=== PATIENT | male | born 1940 | race American Indian/Alaskan Native ===

== ENCOUNTER 2016-12-03 13:01 | Inpatient (IN) | payer MEDICARE, OTHER ==
[2016-12-03] MEDS ORDERED: CALCIUM CHLORIDE 10% 1 GM/10 ML *VIAL IVPUSH ONE (13:17)
[2016-12-03] MEDS ORDERED: DEXTROSE 50%-WATER 50 ML VIAL IVPUSH ONE ×3 (13:17→21:55)
--- NOTE | 2016-12-03 13:17 | PDOC ---
History of Present Illness - General History Source: Other Exam Limitations: Unresponsive - History of Present Illness Initial Comments: 12/03/16 14:33 The patient is a 76 year old male with a significant past medical history of anemia, CVA (2012), dialysis ( Mondays, Tuesdays, Fridays), GERD, seizures, LT lung collapse, craniotomy (2012), and knee surgery, who presents to the ED in cardiac arrest. Patient was on the way to dialysis via transport service, when he passed out in the back of the van. History is limited because patient is unconscious. <Elieser Mosley - Last Filed: 12/03/16 16:27> <Izabela Estrada - Last Filed: 12/03/16 16:30> - General Chief Complaint: Cardiac Arrest Stated Complaint: UNRESPONSIVE Time Seen by Provider: 12/03/16 13:16 Past History <Elieser Mosley - Last Filed: 12/03/16 16:27> - Past Medical History Anemia: Yes Asthma: No Cancer: No Cardiac Disorders: No CVA: Yes (2012) COPD: No CHF: No Dementia: No Diabetes: Yes Dialysis: Yes GI Disorders: Yes (GERD) Disorders: Yes (Dialysis: M-W-F) HTN: Yes Hypercholesterolemia: No Liver Disease: No Suicide Attempt (Hx): No Seizures: Yes Thyroid Disease: No - Surgical History Abdominal Surgery: No Appendectomy: No Cardiac Surgery: No Cholecystectomy: No Lung Surgery: No Neurologic Surgery: (CRANIOTOMY 2012) Orthopedic Surgery: Yes (KNEE SURGERY) - Immunization History Td Vaccination: (unknown) Immunization Up to Date: No - Psycho/Social/Smoking Cessation Hx Anxiety: No Suicidal Ideation: No Smoking Status: No Smoking History: Former smoker Have you smoked in the past 12 months: No Number of Cigarettes Smoked Daily: 0 If you are a former smoker, when did you quit?: 1999 'Breaking Loose' booklet given: 08/31/13 Hx Alcohol Use: No Drug/Substance Use Hx: No Substance Use Type: None Hx Substance Use Treatment: No <Izabela Estrada - Last Filed: 12/03/16 16:30> - Past Medical History Allergies/Adverse Reactions: Allergies Allergy/AdvReac Type Severity Reaction Status Date / Time Penicillins Allergy Intermediate Rash Verified 12/03/16 13:33 Home Medications: Ambulatory Orders Unobtainable [Unobtainable] 12/03/16 Review of Systems - Review of Systems Able to Perform ROS?: No <Elieser Mosley - Last Filed: 12/03/16 16:27> *Physical Exam - Vital Signs Last Vital Signs Temp Pulse Resp BP Pulse Ox 50 L 20 108/47 100 12/03/16 13:58 12/03/16 13:58 12/03/16 13:58 12/03/16 13:58 <Elieser Mosley - Last Filed: 12/03/16 16:27> - Physical Exam Comments: GENERAL: Unresponsive, apneic. HEAD: No signs of trauma EYES: Pupils mid-dilated and fixed. ENT: Auricles normal inspection, hearing grossly normal, nares patent, oropharynx clear without exudates. Dry mucosa NECK: Normal ROM, supple, no lymphadenopathy, JVD, or masses LUNGS: No spontaneous respiration. HEART: Heart sounds absent ABDOMEN: Soft, nontender, normoactive bowel sounds. No guarding, no rebound. No masses EXTREMITIES: Normal range of motion, no edema. No clubbing or cyanosis. No cords, erythema. +L forearm AVF, no thrill. NEUROLOGICAL: Unresponsive. SKIN: Warm, Dry, normal turgor, no rashes or lesions noted. <Izabela Estrada - Last Filed: 12/03/16 16:30> Procedures - Central Line Central Line Lumen: triple Central Line Position: femoral (R) Anesthesia: 1% Lidocaine Amount of anesthesia (ccs): 3 Complications: none Post Central Line Insertion: sutured, good blood return Progress: Site prepped with chloraprep. Sterile drape placed. Sterile gown and gloves, mask and hat. Using ultrasound guidance, the R femoral vein was punctured, with good blood return. Wire was advanced through the needle, needle was removed. Site was dilated, then catheter placed. All three ports with good blood return, flushed easily. Biopatch placed. Catheter was sutured in place and covered with tegaderm. Patient tolerated well. - Intubation Time of Intubation: 12:58 Intubation Method: orotracheal Blade used: Smith (4) Tube Size (Fr): 7.5 Tube position @ lip (cm): 24 Tube position confirmed by: Direct visualization, CO2 detector, Chest x-ray, Breath sounds Breath Sounds after Intubation: equal Intubation Complications: no complications Post Intubation Xray: Yes <Izabela Estrada - Last Filed: 12/03/16 16:30> ED Treatment Course - LABORATORY CBC & Chemistry Diagram: 12/03/16 13:10 12/03/16 14:50 - ADDITIONAL ORDERS Additional order review: Laboratory Results 12/03/16 12/03/16 12/03/16 13:10 13:10 13:10 INR PTT (Actin FS) Sodium 136 Potassium 7.0 H* D Chloride 94 L Carbon Dioxide 22 D Anion Gap 20 H BUN 97 H D Creatinine 9.5 H* D Creat Clearance w eGFR 5.42 Random Glucose 494 H* D Lactic Acid 8.235 H* Calcium 11.6 H D Total Bilirubin 0.4 AST 22 D ALT 24 D Alkaline Phosphatase 73 Creatine Kinase 145 Troponin I 0.02 D Total Protein 6.6 Albumin 2.8 L Blood Type O POSITIVE 12/03/16 13:10 INR 1.20 H PTT (Actin FS) 34.8 H Sodium Potassium Chloride Carbon Dioxide Anion Gap BUN Creatinine Creat Clearance w eGFR Random Glucose Lactic Acid Calcium Total Bilirubin AST ALT Alkaline Phosphatase Creatine Kinase Troponin I Total Protein Albumin Blood Type 12/03/16 13:10 RBC 3.40 L MCV 92.9 MCHC 31.0 L RDW 19.5 H MPV 7.6 Neutrophils % 58.8 Lymphocytes % 32.2 D Monocytes % 7.7 Eosinophils % 0.8 D Basophils % 0.5 - RADIOLOGY Radiology Studies Ordered: 12/03/16 14:48 EXAM#: TYPE/EXAM: RESULT: [id number] RAD/CHEST X-RAY PORTABLE* Chest: HISTORY: Rule out sepsis. Frontal view of the chest is provided. Prior study of May 16, 2015 for comparison. Infiltrates are seen throughout most of the right lung with sparing of a portion of the right upper lobe. There is right pleural effusion and cannot exclude empyema. Cardiac silhouette is within normal limits for size. There is right hilar nodularity suspicious for right hilar adenopathy and underlying mass cannot be excluded. ET tube lies in close proximity to the richard and recommend repositioning. IMPRESSION: ET tube lies in close proximity to the richard and recommend repositioning. Extensive right-sided infiltrate in addition to pleural effusion or empyema. Nodularity in the right hilum suggesting lymphadenopathy. See above. - Medications Given in the ED: ED Medications Discontinued Medications Generic Name Dose Route Start Last Admin Trade Name Elan PRN Reason Stop Dose Admin Calcium Chloride 1 gm 12/03/16 13:17 12/03/16 13:00 Calcium Chloride 10% - IVPUSH 12/03/16 13:18 1 gm ONCE ONE Administration Dextrose 50 ml 12/03/16 13:17 12/03/16 13:00 D50w (Vial) - IVPUSH 12/03/16 13:18 50 ml NOW ONE Administration <Elieser Mosley - Last Filed: 12/03/16 16:27> - LABORATORY CBC & Chemistry Diagram: 12/03/16 13:10 12/03/16 14:50 <Izabela Estrada - Last Filed: 12/03/16 16:30> Medical Decision Making - Medical Decision Making 12/03/16 14:[address] Elaina Knox and Dr. Avendaño. <Elieser Mosley - Last Filed: 12/03/16 16:27> - Critical Care Time Total Critical Care Time (minutes): 80 Critical Care Statement: The care of this patient involved high complexity decision making to prevent further life threatening deterioration of the patient 's condition and/or to evalute & treat vital organ system(s) failure or risk of failure. - Medical Decision Making 12/03/16 13:20 Late entry. Patient arrived in cardiac arrest, CPR was initiated in the ambulette by artificial plastic eye maker. Intubated on arrival in room 10. ACLS protocol initiated - given D50, calcium, bicarb, and 3 rounds of epinephrine. Initial bedside echo showed minimal cardiac motion, but repeat after the 3rd epi showed +cardiac motion. +ROSC. Labs pending. Discussed with Dr. Elaina Frias, who stated that the patient's K does not usually run high, would more likely suspect NE. Awaiting lab results and will discuss again. 12/03/16 14:40 Late entry. Shortly before 2pm, patient became bradycardic and hypotensive, responded to atropine. At this point I prepared for central line placement. Selected femoral location due to emergent need for access. Patient started to shake and cough intermittently, ativan was given for sedation. Patient is now becoming hypotensive again, will place on dopamine drip. Discussed with hospitalist, will admit. Awaiting ICU approval. <Izabela Estrada - Last Filed: 12/03/16 16:30> *DC/Admit/Observation/Transfer - Attestations Scribe Attestion: 12/03/16 14:34 Documentation prepared by Elieser Mosley, acting as pediatric medical assistant for Izabela Estrada MD, . <Elieser Mosley - Last Filed: 12/03/16 16:27> - Discharge Dispostion Admit: Yes <Izabela Estrada - Last Filed: 12/03/16 16:30> Diagnosis at time of Disposition: Cardiac arrest, Hyperkalemia Hypothermia Qualifiers: Encounter type: initial encounter Qualified Code(s): T68.XXXA - Hypothermia, initial encounter - Discharge Dispostion Condition at time of disposition: Critical - Referrals
[2016-12-03 13:35] LABS: BASOPHIL 0.5 % (0-2.0); EOSINOPHIL 0.8 % (0-4.5); MCH 28.8 pg (25.7-33.7); MEAN CELL VOLUME 92.9 fl (80-96); MEAN PLT VOLUME 7.6 fl (7.5-11.1); NEUTROPHILS 58.8 % (42.8-82.8); PLATELET COUNT 239 K/MM3 (134-434); RDW 19.5 % (11.9-15.9)
[2016-12-03 13:47] LABS: INR 1.2 (0.82-1.09); PROTHROMBIN TIME (PATIENT) 13.3 SEC (9.98-11.88)
[2016-12-03 13:49] LABS: ACTIVATED PTT 34.8 SECONDS (26.9-34.4)
[2016-12-03] MEDS ORDERED: LORAZEPAM CARPU-JECT 2 MG/ML DISP.SYRIN ONE ×2 (14:00→18:14)
[2016-12-03 14:02] LABS: ALBUMIN 2.8 g/dl (3.4-5.0); BILIRUBIN,TOTAL 0.4 mg/dL (0.2-1.0); CALCIUM 11.6 mg/dL (8.5-10.1); TOT PROT 6.6 g/dl (6.4-8.2)
[2016-12-03 14:07] LABS: CREATININE 9.5 mg/dL (0.7-1.3)
[2016-12-03 14:08] LABS: TROPONIN I 0.02 ng/ml (0.00-0.05)
[2016-12-03] MEDS ORDERED: SODIUM CHLORIDE 500 ML IV STA (14:26)
[2016-12-03] MEDS ORDERED: AZTREONAM 1 GM in DEXTROSE 5%-WATER - 50 ML IVPB ONE (14:27)
[2016-12-03] MEDS ORDERED: VANCOMYCIN 1,000 MG in DEXTROSE 5%-WATER - 250 ML IVPB ONE (14:27)
[2016-12-03] MEDS ORDERED: LORAZEPAM CARPU-JECT 2 MG/ML DISP.SYRIN IVPUSH ONE (14:39)
[2016-12-03] MEDS ORDERED: ATROPINE SULFATE 1 MG/10 ML DISP.SYRIN IVPUSH ONE (14:39)
[2016-12-03 14:43] LABS: ARTERIAL BLD GAS O2 SATURATION 99.6 % (90-98.9); ARTERIAL BLOOD GAS BASE EXCESS -9.3 meq/l (-2-2); ARTERIAL BLOOD GAS HCO3 17.1 meq/L (22-26); ARTERIAL BLOOD GAS pH 7.24 (7.35-7.45)
[2016-12-03 14:44] LABS: ALLENS TEST POSITIVE; ART PUNCT SITE RIGHT RADIAL; LPM/O2% 100%; MECH. VENT. Y; PT. ON O2? YES; TYPE OF O2 MECH VENT; VENT RATE 12; VT/PRESS 450
[2016-12-03] MEDS ORDERED: VANCOMYCIN 1 GRAM (PRE-DOCKED) 500 ML IVPB ONE (14:45)
[2016-12-03] MEDS ORDERED: DOPAMINE 400 MG/D5W - 250 ML IVPB ONE (14:47)
[2016-12-03] MEDS: DOPAMINE 400 MG/D5W - 250 ML IVPB SCH (14:52)
--- NOTE | 2016-12-03 15:03 | CONSULT ---
Consult Consult Specialty:: Nephrology ( Drs. Knox/ Spencer) Referred by:: Dr. Salamanca Reason for Consultation:: Patient with ESRD, admitted after cradio-respiratory arrest. patient was on his way to the dialysis unit, when he became unresponsive in the ambullette. Brought to the ER. Coded, intubated, vent supported. Unresponsive, Pressor supported - History Source History Provided By: Family Member, Friend, Medical Record Limitations to Obtaining History: Physical Impairment - Past Medical History MANAGER OF PROJECT MANAGEMENT: Yes: CVA, Dementia Pulmonary: Yes: Previously Intubated Renal/: Yes: Renal Failure, Hemodialysis Heme/Onc: Yes: Anemia Endocrine: Yes: Diabetes Insipidus - Alcohol/Substance Use Hx Alcohol Use: No - Smoking History Smoking history: Former smoker Have you smoked in the past 12 months: No Aproximately how many cigarettes per day: 0 If you are a former smoker, when did you quit?: 1999 Home Medications - Allergies Allergies/Adverse Reactions: Allergies Allergy/AdvReac Type Severity Reaction Status Date / Time Penicillins Allergy Intermediate Rash Verified 12/03/16 13:33 - Home Medications Home Medications: Ambulatory Orders Unobtainable [Unobtainable] 12/03/16 Family Disease History - Family Disease History Family History: Unable to Obtain Physical Exam Vital Signs: Vital Signs Temperature 94.7 F L 12/03/16 14:31 Pulse Rate 45 L 12/03/16 14:52 Respiratory Rate 20 12/03/16 14:31 Blood Pressure 100/43 12/03/16 14:52 O2 Sat by Pulse Oximetry (%) 100 12/03/16 14:31 HENT: Yes: Normocephalic Neck: Yes: Supple Cardiovascular: Yes: Regular Rate and Rhythm, S1, S2 Respiratory: Yes: Diminished, Mechanically Ventilated Gastrointestinal: Yes: Soft Extremities: Yes: WNL Edema: No Neurological: Yes: Unresponsive Labs: CBC, BMP 12/03/16 13:10 12/03/16 13:10 Problem List - Problems (1) Cardiac arrest Code(s): I46.9 - CARDIAC ARREST, CAUSE UNSPECIFIED (2) Hyperkalemia Code(s): E87.5 - HYPERKALEMIA (3) Hypothermia Code(s): T68.XXXA - HYPOTHERMIA, INITIAL ENCOUNTER Qualifiers: Encounter type: initial encounter Qualified Code(s): T68.XXXA - Hypothermia, initial encounter (4) End stage kidney disease Code(s): N18.6 - END STAGE RENAL DISEASE (5) CVA (cerebral vascular accident) Code(s): I63.9 - CEREBRAL INFARCTION, UNSPECIFIED (6) Hyperkalemia, diminished renal excretion Code(s): E87.5 - HYPERKALEMIA Assessment/Plan 76 y/o male admitted with : 1 Cardiac arrest. ? Primary cardiac event 2. Minimal Hyperkalemia...hemolysed specimen, and also Hyperglycemia can cause Hyperkalemia 3. Hypotension. ? cardiogenic shock. 4,ESRD. On HD. If the patient is stabilized, can do low flow dialysis today. Will monitor the elctrolyte status. W/u as ordered. Will need to stabilize cardio-respiratory status. Antibx for ? Pna Orders for HD reviewed with RN Thank you. Will follow with you. Elaina Knox MD
--- NOTE | 2016-12-03 15:08 | CON.CARD ---
Consult Consult Specialty:: Cardiology Referred by:: Kari Salamanca MD Reason for Consultation:: Post asystolic arrest - History of Present Illness Chief Complaint: Post asystolic arrest History of Present Illness: The patient is a 76 year old male with a significant past medical history of anemia, CVA (2012), ESRD on HD ( Mondays, Tuesdays, Fridays), GERD, seizures, LT lung collapse, craniotomy (2012), and knee surgery, referred to the ED in cardiac arrest. Patient was on the way to dialysis via transport service, when he passed out in the back of the van, cpr initiated, initial rhythm is asystole , resuscitated and now hemodynamically stable on dopamine gtt. History is limited per chart review and family corroboration, initial K=7. - History Source History Provided By: Family Member, Medical Record Limitations to Obtaining History: Intubated - Past Medical History Renal/: Yes: Renal Failure, Hemodialysis - Alcohol/Substance Use Hx Alcohol Use: No - Smoking History Smoking history: Former smoker Have you smoked in the past 12 months: No Aproximately how many cigarettes per day: 0 If you are a former smoker, when did you quit?: 1999 Home Medications - Allergies Allergies/Adverse Reactions: Allergies Allergy/AdvReac Type Severity Reaction Status Date / Time Penicillins Allergy Intermediate Rash Verified 12/03/16 13:33 - Home Medications Home Medications: Ambulatory Orders Unobtainable [Unobtainable] 12/03/16 Review of Systems Unable to obtain ROS, reason: Intubated Vital Signs: Vital Signs Temperature 94.6 F L 12/03/16 15:02 Pulse Rate 52 L 12/03/16 15:02 Respiratory Rate 20 12/03/16 15:02 Blood Pressure 105/46 12/03/16 15:02 O2 Sat by Pulse Oximetry (%) 100 12/03/16 15:02 Respiratory: Yes: Intubated, Mechanically Ventilated, Rhonchi Gastrointestinal: Yes: Normal Bowel Sounds, Soft Cardiovascular: Yes: Regular Rate and Rhythm JVD: No Carotid Bruit: No Heart Sounds: Yes: S1, S2 Murmur: Yes: Systolic Murmur, Grade 1 Edema: No - Other Data Labs, Other Data: CBC, BMP 12/03/16 13:10 INR, PTT INR 1.20 (0.82-1.09) H 12/03/16 13:10 Troponin, BNP 12/03/16 13:10 Troponin I 0.02 D Troponin, BNP 12/03/16 13:10 Troponin I 0.02 D Echo: Image Reviewed Ejection Fraction %: LVEF > or = 40 % Imaging - Results Chest X-ray: Report Reviewed (12/03/16 14:48 EXAM#: TYPE/EXAM: RESULT: [id number] RAD/CHEST X-RAY PORTABLE* Chest: HISTORY: Rule out sepsis. Frontal view of the chest is provided. Prior study of May 16, 2015 for comparison. Infiltrates are seen throughout most of the right lung with sparing of a portion of the right upper lobe. There is right pleural effusion and cannot exclude empyema. Cardiac silhouette is within normal limits for size. There is right hilar nodularity suspicious for right hilar adenopathy and underlying mass cannot be excluded. ET tube lies in close proximity to the richard and recommend repositioning. IMPRESSION: ET tube lies in close proximity to the richard and recommend repositioning. Extensive right-sided infiltrate in addition to pleural effusion or empyema. Nodularity in the right hilum suggesting lymphadenopathy. See above.) Assessment/Plan Echo: Preserved biventricular function with mild MR, TR 1. Acute hypoxemic respiratory failure referable to 2. Post asystolic arrest in context of 3. ESRD on HD with hyperkalemia 4. Shock with lactic acidosis 5. Possible asp PNA, monitor for anoxic brain injury P:1. Cooling protocol per ICU, dopamine gtt to maintain MAP>60 mmHg 2. Cycle cardiac enzymes to document peak, trend lactate, LFTs 3. Empiric abx per C&S to cover asp pna 4. Vent support per ABG, sedation 5. Thank you for consultative opportunity
--- NOTE | 2016-12-03 15:23 | HP ---
PCP: Kari Salamanca CHIEF COMPLAINT: Cardiac arrest HISTORY OF PRESENT ILLNESS: This is a 76-year-old man who became unresponsive in an ambulette on the way to dialysis. When the ambulette arrived at the ER, he was found to be in cardiac arrest and CPR was started in the ambulette. He was brought into the ER and intubated. His temperature was 94.7. He was treated with D50 x 1 amp, calcium chloride 1 g, sodium bicarbonate, epinephrine x 3, atropine x 1, and NS x 500 cc. He is being started on Dopamine. PAST MEDICAL HISTORY ESRD on HD M/W/F Hypertension GERD Seizures Anemia CVA PAST SURGICAL HISTORY Craniotomy Knee surgery Allergies Penicillins Allergy (Intermediate, Verified 12/03/16 13:33) Rash DIZZINESS HOME MEDICATIONS 3 Medication Instructions Recorded Unobtainable [Unobtainable] 12/03/16 Social History: Smoking: Former smoker Alcohol: None Drugs: None Recent Travel: No Family History: REVIEW OF SYSTEMS Unable to obtain PHYSICAL EXAMINATION Vital Signs Period Temp Pulse Resp BP Sys/Vee Pulse Ox Last 24 Hr 94.6 F-94.7 F 0-65 0-20 0-108/0-47 0-100 GENERAL: Unresponsive, intubated. HEAD: Normal with no signs of trauma. EYES: Pupils small, sclerae anicteric, conjunctivae clear. EARS, NOSE, THROAT: Ears normal, nares patent, oropharynx clear without exudates. Moist mucous membranes. NECK: Supple without lymphadenopathy, JVD, or masses. LUNGS: Breath sounds equal, clear to auscultation bilaterally. No wheezes, no crackles. HEART: Normal S1 and S2, bradycardic, (+) 1/6 systolic murmur. ABDOMEN: Soft, not distended, normoactive bowel sounds, no masses. No hepatomegaly or splenomegaly. MUSCULOSKELETAL: Normal passive range of motion at all joints. No bony deformities. UPPER EXTREMITIES: 1+ pulses, warm, well-perfused. No cyanosis. No clubbing. Cap refill <2 seconds. Left forearm AV fistula with bruit and thrill. No peripheral edema. LOWER EXTREMITIES: 1+ pulses, warm, well-perfused. No calf tenderness. Trace peripheral edema. NEUROLOGICAL: Unable to assess. PSYCHIATRIC: Unable to assess. SKIN: Warm, dry, normal turgor, no rashes or lesions noted. Laboratory Results - last 24 hr 12/03/16 12/03/16 12/03/16 13:10 13:10 13:10 WBC 9.0 D RBC 3.40 L Hgb 9.8 L D Hct 31.6 L MCV 92.9 MCHC 31.0 L RDW 19.5 H Plt Count 239 MPV 7.6 Neutrophils % 58.8 Lymphocytes % 32.2 D Monocytes % 7.7 Eosinophils % 0.8 D Basophils % 0.5 INR 1.20 H PTT (Actin FS) 34.8 H Puncture Site ABG pH ABG pCO2 at Pt Temp ABG pO2 at Pt Temp ABG HCO3 ABG O2 Sat (Measured) ABG O2 Content ABG Base Excess Paul Test O2 Delivery Device Oxygen Flow Rate Vent Mode Vent Rate Mechanical Rate PEEP Pressure Support Vent Sodium 136 Potassium 7.0 H* D Chloride 94 L Carbon Dioxide 22 D Anion Gap 20 H BUN 97 H D Creatinine 9.5 H* D Creat Clearance w eGFR 5.42 Random Glucose 494 H* D Lactic Acid Calcium 11.6 H D Total Bilirubin 0.4 AST 22 D ALT 24 D Alkaline Phosphatase 73 Creatine Kinase 145 Troponin I 0.02 D Total Protein 6.6 Albumin 2.8 L Blood Type Antibody Screen 12/03/16 12/03/16 12/03/16 13:10 13:10 14:39 WBC RBC Hgb Hct MCV MCHC RDW Plt Count MPV Neutrophils % Lymphocytes % Monocytes % Eosinophils % Basophils % INR PTT (Actin FS) Puncture Site Right radial ABG pH 7.24 L* D ABG pCO2 at Pt Temp 41.1 ABG pO2 at Pt Temp 368.0 H* D ABG HCO3 17.1 L ABG O2 Sat (Measured) 99.6 H* ABG O2 Content 15.9 ABG Base Excess -9.3 L Paul Test Positive O2 Delivery Device Mech vent Oxygen Flow Rate 100% Vent Mode A/c Vent Rate 12 Mechanical Rate Y PEEP 5.0 Pressure Support Vent 450 Sodium Potassium Chloride Carbon Dioxide Anion Gap BUN Creatinine Creat Clearance w eGFR Random Glucose Lactic Acid 8.235 H* Calcium Total Bilirubin AST ALT Alkaline Phosphatase Creatine Kinase Troponin I Total Protein Albumin Blood Type O POSITIVE Antibody Screen Negative Chest x-ray: ETT close to richard. Extensive right infiltrate with effusion or empyema. Right hilar adenopathy. EKG: Sinus bradycardia, rate 49. LAD. LBBB (new from 05/2015). ASSESSMENT/PLAN: This is a 76-year-old man with a history of ESRD on HD, HTN, type 2 DM, GERD, CVA, anemia and seizures who was brought in to the ER today after having a cardiac arrest in the ambulette on the way to dialysis. ACLS protocol was initiated, he was intubated, and had ROSC. He is being admitted now for treatment of an emergent condition. 1. Acute hypoxic respiratory failure secondary to cardiac arrest - Admit to ICU - Maintain vent support - Continue IV fluid - Serial cardiac enzymes - Echocardiogram - Treat electrolyte abnormalities - Hypothermia protocol - Cardiology, pulmonary/critical care consults 2. Hyperkalemia secondary to ESRD - Repeat electrolytes pending - If potassium still high, will treat with insulin/D50, Kayexalate - Nephrology consult for HD 3. Septic shock secondary to pneumonia, possible aspiration, with effusion and possible empyema - IV fluid - IV Dopamine started in ER - Aztreonam, Vancomycin given in ER - ID consult - Chest CT when stable 4. Lactic acidosis secondary to hypoperfusion from cardiac arrest and septic shock - Repeat lactic acid 5. Hypothermia 6. Hypercalcemia - Likely secondary to calcium IV given during ACLS - Repeat calcium pending 7. Type 2 diabetes mellitus - Hyperglycemia likely secondary to D50 IV given during ACLS - IV fluid - Fingersticks with Novolog sliding scale 8. GERD 9. History of CVA 10. History of seizures 11. Anemia secondary to ESRD 12. Hypertension - Currently on Dopamine for hypotension 13. Stress ulcer prophylaxis - Protonix IV 14. DVT prophylaxis - Heparin subQ Problem List - Problem (1) Acute respiratory failure with hypoxia Code(s): J96.01 - ACUTE RESPIRATORY FAILURE WITH HYPOXIA (2) Anemia in chronic kidney disease (CKD) Code(s): N18.9 - CHRONIC KIDNEY DISEASE, UNSPECIFIED D63.1 - ANEMIA IN CHRONIC KIDNEY DISEASE (3) Aspiration pneumonia Code(s): J69.0 - PNEUMONITIS DUE TO INHALATION OF FOOD AND VOMIT (4) Hypercalcemia Code(s): E83.52 - HYPERCALCEMIA (5) Hypertension Code(s): I10 - ESSENTIAL (PRIMARY) HYPERTENSION (6) Lactic acidosis Code(s): E87.2 - ACIDOSIS (7) Pleural effusion, right Code(s): J90 - PLEURAL EFFUSION, NOT ELSEWHERE CLASSIFIED (8) Septic shock Code(s): A41.9 - SEPSIS, UNSPECIFIED ORGANISM R65.21 - SEVERE SEPSIS WITH SEPTIC SHOCK (9) GERD (gastroesophageal reflux disease) Code(s): K21.9 - GASTRO-ESOPHAGEAL REFLUX DISEASE WITHOUT ESOPHAGITIS (10) History of seizures Code(s): Z87.898 - PERSONAL HISTORY OF OTHER SPECIFIED CONDITIONS (11) Type 2 diabetes mellitus Code(s): E11.9 - TYPE 2 DIABETES MELLITUS WITHOUT COMPLICATIONS Visit type - Emergency Visit Emergency Visit: Yes ED Registration Date: 12/03/16 Care time: The patient presented to the Emergency Department on the above date and was hospitalized for further evaluation of their emergent condition. - New Patient This patient is new to me today: Yes Date on this admission: 12/03/16 - Critical Care Critical Care patient: Yes Total Critical Care Time (in minutes): 60 Critical Care Statement: The care of this patient involved high complexity decision making to prevent further life threatening deterioration of the patient 's condition and/or to evalute & treat vital organ system(s) failure or risk of failure.
[2016-12-03 15:35] LABS: CALCIUM 8.6 mg/dL (8.5-10.1)
[2016-12-03 15:44] LABS: CREATININE 9.5 mg/dL (0.7-1.3)
[2016-12-03] MEDS ORDERED: INSULIN REGULAR HUMAN 100 UNITS/ML *VIAL IVPUSH ONE (15:59)
[2016-12-03] MEDS ORDERED: ALBUTEROL SO4 0.083% IH SOL 2.5 MG/3 ML VIAL.NEB. NEB ONE (15:59)
[2016-12-03] MEDS ORDERED: SODIUM POLYSTYRENE SULFONATE 15 GM/60 ML BOTTLE PO ONE (15:59)
--- NOTE | 2016-12-03 16:15 | EKG ---
Test Reason : Blood Pressure : / mmHG Vent. Rate : 049 BPM Atrial Rate : 049 BPM P-R Int : 238 ms QRS Dur : 194 ms QT Int : 592 ms P-R-T Axes : 016 -57 098 degrees QTc Int : 534 ms SINUS BRADYCARDIA WITH 1ST DEGREE A-V BLOCK LEFT AXIS DEVIATION LEFT BUNDLE BRANCH BLOCK ABNORMAL ECG WHEN COMPARED WITH ECG OF 11-MAY-2015 21:05, OR INTERVAL HAS INCREASED LEFT BUNDLE BRANCH BLOCK IS NOW PRESENT Confirmed by NEWTON RIVER MD ([id number]) on 12/03/2016 4:14:48 PM Referred By: Confirmed By:NEWTON RIVER MD
--- NOTE | 2016-12-03 16:22 | CONSULT ---
Consult Consult Specialty:: Pulm/CCM Referred by:: Siddhartha Reason for Consultation:: Cardiac arrest - History of Present Illness Chief Complaint: Cardiac arrest History of Present Illness: 76M history per chart HTN DM CVA ESRD on HD left lung collapse presents to the ED s/p cardiac arrest. patient was picked up by ambulette and was to be taken to dialysis when the hazmat truck driver noticed patient was unresponsive brought to ED found by ED RN to be in cardiac arrest and patient was coded in the ambulette and brought to the ED. The code continued for 3 rounds of epinephrine when ROSC was achieved. Patient was noted to be hypothermic to 97.4. - History Source History Provided By: Medical Record Limitations to Obtaining History: Intubated (could not obtain) - Past Medical History DOOR FITTER: Yes: CVA, Dementia Pulmonary: Yes: Previously Intubated Renal/: Yes: Renal Failure, Hemodialysis Endocrine: Yes: Diabetes Insipidus - Alcohol/Substance Use Hx Alcohol Use: No - Smoking History Smoking history: Former smoker Have you smoked in the past 12 months: No Aproximately how many cigarettes per day: 0 If you are a former smoker, when did you quit?: 1999 Home Medications - Allergies Allergies/Adverse Reactions: Allergies Allergy/AdvReac Type Severity Reaction Status Date / Time Penicillins Allergy Intermediate Rash Verified 12/03/16 13:33 - Home Medications Home Medications: Ambulatory Orders Unobtainable [Unobtainable] 12/03/16 Family Disease History - Family Disease History Family History: Unable to Obtain Review of Systems Unable to obtain ROS, reason: cardiac arrest intubated Physical Exam Vital Signs: Vital Signs Temperature 94.1 F L 12/03/16 15:29 Pulse Rate 54 L 12/03/16 15:29 Respiratory Rate 16 12/03/16 15:29 Blood Pressure 93/45 12/03/16 15:29 O2 Sat by Pulse Oximetry (%) 100 12/03/16 15:02 Eyes: Yes: Other (pinpoint pupils but sluggishly reactive) Neck: Yes: Trachea Midline Cardiovascular: Yes: Regular Rate and Rhythm, Murmur (systolic murmur) Respiratory: Yes: Diminished, Intubated, Mechanically Ventilated, Poor Air Entry , Rhonchi Gastrointestinal: Yes: Soft Edema: No Imaging - Results Chest X-ray: Report Reviewed, Image Reviewed EKG: Report Reviewed, Image Reviewed Assessment/Plan 76M with multiple medical problems presents to the ED s/p cardiac arrest. Cardiac arrest: patient arrested for unknown amount of time but between the hazmat truck driver's story and the length of time patient coded in ED it could be estimated to be about 20 minutes hypothermia protocol initiated ventilatory support ABG in AM ICU care Dopamine will change to levophed if gets tachycardic after dialysis Neurochecks-patient spontaneously moving feet hold sedation for now and assess need on a constant basis for the need for sedation Trend troponins to document peak cardiology consult appreciated ECHO Femroal line to come out tomorrow Hyperkalemia: Insulin D50 kayexolate and albuterol given calcium given in ED STAT dialysis initiated q4h BMP Septic shock: PNA on CXR vs effusion though clinically PNA makes is more likely it is very possible patient aspirated prior to coming in or during intubation ID consult appreciated allergic to penicillin Will start ceftriaxone and flagyl received vanco aztreonam in ED Solumedrol ESRD on HD: emergent dialysis Nephrology consult appreciated DM: BGM Q4h ISS HTN: hold antihypertensives at this time patient on pressors history of CVA: no issues at this time FEN: no IVF being dialyzed hyperkalemia--> dialysis NPO for now will consider Tube feeds tomorrow PPx: HSQ Protonix PT consult when appropriate Poor prognosis at this time CCTime 60min
[2016-12-03] MEDS ORDERED: ACETAMINOPHEN 650 MG SUPP.RECT PR PRN (16:27)
--- NOTE | 2016-12-03 16:28 | PN ---
Teaching Attending Note Name of Resident: Tato Fields ATTENDING PHYSICIAN STATEMENT I saw and evaluated the patient. I reviewed the resident's note and discussed the case with the resident. I agree with the resident's findings and plan as documented. SUBJECTIVE: Patient seen and examined in the ICU. 76 M, ESRD on HD (TIW), anemia, CVA (2012 ), GERD, seizures, craniotomy (2012), and previous history of Left lung collapse (?). Patient apparently became unresponsive on the way to HD. CPR continued in ambulance bay and again while in the ER. Time of ROSC unclear, but likely 10 to15 minutes. Now seen intubated on mechanical ventilation. He is on Dopamine @ 10 mcq for hemodynamic support. There is no response to noxious stimuli. CXR: extensive infiltrates on the right. Intake & Output 11/30/16 12/01/16 12/02/16 12/03/16 23:59 23:59 23:59 23:59 Weight 120 lb Last Vital Signs Temp Pulse Resp BP Pulse Ox 94.1 F L 61 16 106/50 100 12/03/16 15:29 12/03/16 16:00 12/03/16 15:29 12/03/16 16:00 12/03/16 15:02 Active Medications Acetaminophen (Tylenol Suppository -) 650 mg MN Q4H PRN PRN Reason: FEVER OR PAIN Chlorhexidine Gluconate (Hibiclens For Decolonization -) 1 applic TP HS LUIS ALBERTO Heparin Sodium (Porcine) (Heparin -) 5,000 unit SQ TID LUIS ALBERTO Dopamine HCl/Dextrose (Dopamine 400 Mg/D5w -) 250 mls @ 10.206 mls/hr IVPB TITR LUIS ALBERTO; 5 MCG/KG/MIN PRN Reason: Protocol Last Titration: 12/03/16 16:00 Dose: 10 mcg/kg/min Aztreonam 0.25 gm/ Dextrose 50 mls @ 100 mls/hr IVPB Q8H LUIS ALBERTO Pantoprazole Sodium 40 mg/ (Sodium Chloride) 100 mls @ 200 mls/hr IVPB DAILY LUIS ALBERTO Sodium Chloride (Normal Saline -) 1,000 mls @ 100 mls/hr IV ASDIR LUIS ALBERTO Insulin Aspart (Novolog Vial Sliding Scale -) 1 vial SQ Q4H LUIS ALBERTO PRN Reason: Protocol Methylprednisolone Sodium Succinate (Solu-Medrol -) 40 mg IVPB Q8H-IV LUIS ALBERTO Mupirocin (Bactroban Ointment (For Decolonization) -) 1 applic NS BID LUIS ALBERTO Stop: 12/08/16 21:59 GENERAL: Unresponsive, intubated. HEAD: Normal with no signs of trauma. EYES: Pupils small, sclerae anicteric, conjunctivae clear. EARS, NOSE, THROAT: Dry mucous membranes. NECK: Supple without lymphadenopathy, JVD, or masses. LUNGS: Bilateral rhonchi, no wheezing HEART: Normal S1 and S2, bradycardia, no murmur ABDOMEN: Soft, not distended, normoactive bowel sounds, no masses. No hepatomegaly or splenomegaly. MUSCULOSKELETAL: No bony deformities. UPPER EXTREMITIES: 1+ pulses, warm, well-perfused. No cyanosis. No clubbing. delayed capillary refill, no peripheral edema. LOWER EXTREMITIES: 2+ pulses, warm, well-perfused. No calf tenderness. No peripheral edema. NEUROLOGICAL: non-responsive PSYCHIATRIC: non-responsive SKIN: cool to touch Laboratory Results - last 24 hr 12/03/16 12/03/16 12/03/16 13:10 13:10 13:10 WBC 9.0 D RBC 3.40 L Hgb 9.8 L D Hct 31.6 L MCV 92.9 MCHC 31.0 L RDW 19.5 H Plt Count 239 MPV 7.6 Neutrophils % 58.8 Lymphocytes % 32.2 D Monocytes % 7.7 Eosinophils % 0.8 D Basophils % 0.5 INR 1.20 H PTT (Actin FS) 34.8 H Puncture Site ABG pH ABG pCO2 at Pt Temp ABG pO2 at Pt Temp ABG HCO3 ABG O2 Sat (Measured) ABG O2 Content ABG Base Excess Paul Test O2 Delivery Device Oxygen Flow Rate Vent Mode Vent Rate Mechanical Rate PEEP Pressure Support Vent Sodium 136 Potassium 7.0 H* D Chloride 94 L Carbon Dioxide 22 D Anion Gap 20 H BUN 97 H D Creatinine 9.5 H* D Creat Clearance w eGFR 5.42 Random Glucose 494 H* D Lactic Acid Calcium 11.6 H D Total Bilirubin 0.4 AST 22 D ALT 24 D Alkaline Phosphatase 73 Creatine Kinase 145 Troponin I 0.02 D Total Protein 6.6 Albumin 2.8 L Blood Type Antibody Screen 12/03/16 12/03/16 12/03/16 13:10 13:10 14:39 WBC RBC Hgb Hct MCV MCHC RDW Plt Count MPV Neutrophils % Lymphocytes % Monocytes % Eosinophils % Basophils % INR PTT (Actin FS) Puncture Site Right radial ABG pH 7.24 L* D ABG pCO2 at Pt Temp 41.1 ABG pO2 at Pt Temp 368.0 H* D ABG HCO3 17.1 L ABG O2 Sat (Measured) 99.6 H* ABG O2 Content 15.9 ABG Base Excess -9.3 L Paul Test Positive O2 Delivery Device Mech vent Oxygen Flow Rate 100% Vent Mode A/c Vent Rate 12 Mechanical Rate Y PEEP 5.0 Pressure Support Vent 450 Sodium Potassium Chloride Carbon Dioxide Anion Gap BUN Creatinine Creat Clearance w eGFR Random Glucose Lactic Acid 8.235 H* Calcium Total Bilirubin AST ALT Alkaline Phosphatase Creatine Kinase Troponin I Total Protein Albumin Blood Type O POSITIVE Antibody Screen Negative 12/03/16 12/03/16 14:50 14:50 WBC RBC Hgb Hct MCV MCHC RDW Plt Count MPV Neutrophils % Lymphocytes % Monocytes % Eosinophils % Basophils % INR PTT (Actin FS) Puncture Site ABG pH ABG pCO2 at Pt Temp ABG pO2 at Pt Temp ABG HCO3 ABG O2 Sat (Measured) ABG O2 Content ABG Base Excess Paul Test O2 Delivery Device Oxygen Flow Rate Vent Mode Vent Rate Mechanical Rate PEEP Pressure Support Vent Sodium 138 Potassium 6.4 H* Chloride 101 Carbon Dioxide 20 L Anion Gap 17 H BUN 99 H Creatinine 9.5 H* Creat Clearance w eGFR Random Glucose 271 H D Lactic Acid 4.126 H* Calcium 8.6 D Total Bilirubin AST ALT Alkaline Phosphatase Creatine Kinase Troponin I Total Protein Albumin Blood Type Antibody Screen Problem List - Problems (1) Cardiac arrest Code(s): I46.9 - CARDIAC ARREST, CAUSE UNSPECIFIED (2) Hyperkalemia Code(s): E87.5 - HYPERKALEMIA (3) Hypothermia Code(s): T68.XXXA - HYPOTHERMIA, INITIAL ENCOUNTER Qualifiers: Encounter type: initial encounter Qualified Code(s): T68.XXXA - Hypothermia, initial encounter (4) End stage kidney disease Code(s): N18.6 - END STAGE RENAL DISEASE (5) CVA (cerebral vascular accident) Code(s): I63.9 - CEREBRAL INFARCTION, UNSPECIFIED (6) Hyperkalemia, diminished renal excretion Code(s): E87.5 - HYPERKALEMIA Assessment/Plan Hypothermia protocol initiated AC Mode of vent Aggressive treatment of Hyperkalemia Follow BMP Q4 Pressors If hemodynamics remain stable -> HD per renal Neuro checks Overall prognosis for meaningful recovery initially appears poor Thank you Dr Avendaño CCTime 35"
[2016-12-03] MEDS ORDERED: SODIUM CHLORIDE 1,000 ML IV SCH (16:30)
[2016-12-03] MEDS: PANTOPRAZOLE SODIUM 100 ML IVPB SCH (16:58)
--- NOTE | 2016-12-03 17:28 | PN ---
Progress Note (short form) - Note Progress Note: 5.30 Pm Patient seen on Hemodialysis. Tolerating well. BP stable...on pressors. UF goal at 2 kg. Orders reviewed with the HD RN Elaina Knox MD Problem List - Problems (1) Cardiac arrest Code(s): I46.9 - CARDIAC ARREST, CAUSE UNSPECIFIED (2) Hyperkalemia Code(s): E87.5 - HYPERKALEMIA (3) Hypothermia Code(s): T68.XXXA - HYPOTHERMIA, INITIAL ENCOUNTER Qualifiers: Qualified Code(s): T68.XXXA - Hypothermia, initial encounter (4) End stage kidney disease Code(s): N18.6 - END STAGE RENAL DISEASE (5) CVA (cerebral vascular accident) Code(s): I63.9 - CEREBRAL INFARCTION, UNSPECIFIED (6) Hyperkalemia, diminished renal excretion Code(s): E87.5 - HYPERKALEMIA
[2016-12-03] MEDS ORDERED: CEFTRIAXONE 1 GM in DEXTROSE 5%-WATER - 100 ML IVPB SCH (17:30)
--- NOTE | 2016-12-03 17:31 | PN ---
Progress Note (short form) - Note Progress Note: ID consult dictated S/P cardiopulmonary arrest Probable aspiration pneumonia/possible sepsis secondary to pneumonia Lactic acidosis ESRD PCN allergy ( tolerated cephalosporins in past ) Pending c/s , empiric ceftriaxone/flagyl/vancomycin, adjusted for ESRD Ventilatory/ hemodynamic support Prognosis guarded Critical care time 35min
[2016-12-03] MEDS ORDERED: AZTREONAM IVPB SCH (18:00)
[2016-12-03] MEDS ORDERED: WATER IVPB SCH (18:00)
[2016-12-03] MEDS ORDERED: DEXTROSE 5% IVPB SCH (18:00)
[2016-12-03] MEDS: INSULIN SLIDING SCALE (NOVOLOG) 1 VIAL SQ SCH ×2 (18:07→22:04)
[2016-12-03] MEDS ORDERED: LORAZEPAM CARPU-JECT 2 MG/ML DISP.SYRIN IVPUSH STA (18:14)
[2016-12-03] MEDS ORDERED: PROPOFOL 100 ML IVPB SCH (18:30)
[2016-12-03] MEDS ORDERED: LABETALOL HCL 5 MG/1 ML (100MG/20 ML VIAL) IVPUSH ONE (19:01)
[2016-12-03 21:09] LABS: CALCIUM 8.4 mg/dL (8.5-10.1); CREATININE 3.1 mg/dL (0.7-1.3)
[2016-12-03 21:14] LABS: TROPONIN I 0.07 ng/ml (0.00-0.05)
[2016-12-03] MEDS: cefTRIAXone 1 GM/50 ML BAG (PRE-DOCKED) IVPB SCH (21:15)
[2016-12-03] MEDS ORDERED: MIDAZOLAM 100 MG in SODIUM CHLORIDE 100 ML IVPB SCH (21:15)
[2016-12-03] MEDS: METRONIDAZOLE 500 MG PREMIXED 100 ML IVPB SCH (21:21)
[2016-12-03] MEDS: methylPREDNISolone NA SUCC 40 MG/1 ML VIAL IVPB SCH (21:25)
[2016-12-03] MEDS: HEPARIN NA (PORCINE) 5,000 UNITS/ML 1ML VIAL SQ SCH (21:26)
[2016-12-03] MEDS: MUPIROCIN 2% TOPICAL OINTMENT FOR DECOLONIZATION NS SCH (21:26)
[2016-12-03] MEDS: CHLORHEXIDINE GLUCONATE 4% CLEANSER FOR DECOLONIZATION TP SCH (21:27)
[2016-12-03] MEDS: levETIRAcetam 500 MG/5 ML INJECTION VIAL IVPB SCH ×2 (21:41→22:01)
[2016-12-03] MEDS ORDERED: DEXTROSE 50%-WATER 50 ML DISP.SYRIN ONE (21:55)
[2016-12-03] MEDS ORDERED: AZTREONAM 0.5 GM in DEXTROSE 5%-WATER - 50 ML IVPB SCH (22:00)
--- NOTE | 2016-12-03 22:27 | CONS ---
DATE OF CONSULTATION: DATE OF DICTATION: 12/03/2016 INFECTIOUS DISEASE CONSULTATION HISTORY OF PRESENT ILLNESS: The patient is a 76-year-old male, history of end-stage renal disease on hemodialysis, evaluated for probable aspiration right sided pneumonia and sepsis. His is obtained from the chart, as he cannot give a history, as he is presently intubated in the ICU. He is a dialysis patient. He was being transported to his dialysis session via ambulette; while in the ambulette, he suffered a cardiopulmonary arrest. Cardiopulmonary resuscitation was initiated in the ambulette and continued in the emergency room. He was intubated and successfully resuscitated. He was noted to be hypothermic, hypotensive, and bradycardic. A chest x-ray showed a large right infiltrate/effusion. The patient is presently intubated on mechanical ventilation and pressors in the ICU. No reports of any recent febrile illness or breathing difficulty, respiratory tract infection, or other infectious etiology. He has a history of PENICILLIN allergy; however, has tolerated cephalosporins in the past. He was admitted to [facility] in May of 2015, at which time he was treated with a cephalosporin. A Quantiferon gold was performed. It is unclear whether he had followup with respect to this lab finding. PAST MEDICAL HISTORY: Positive for stroke, end-stage renal disease on hemodialysis, hypertension, diabetes mellitus, gastroesophageal reflux, seizure disorder, history of craniotomy in 2012. ALLERGIES: PENICILLIN. Nature of PENICILLIN allergy not known; however, he has tolerated cephalosporins in the past. He was treated with ceftazidime for pneumonia in 2014. MEDICATION: Include Solu-Medrol, Tylenol, vancomycin, Azactam, dopamine, Novolog, Protonix. SOCIAL HISTORY: He is a former smoker, stopped in 1999. He is on chronic hemodialysis. SYSTEMS REVIEW: Neurologic: Positive for seizure disorder. Cardiac: As per HPI. Respiratory: As per HPI. Gastrointestinal: Negative vomiting or diarrhea. Genitourinary: End-stage renal disease on hemodialysis. LABORATORY DATA: White count 9.0, hematocrit 31.6, platelet count 239, BUN 99, creatinine 9.5, lactic acid 8.2. Chest x-ray shows a large right mid and lower lobe consolidation with possible underlying effusion. PHYSICAL EXAMINATION: General: He is unresponsive on the ventilator. Vital signs: Temperature 94.1, blood pressure 106/50, pulse 54 regular, respirations 16 per minute. Patient is orally intubated. Cardiovascular: Heart sounds bradycardic. S1, S2. Respiratory: Lungs air entry bilaterally. Abdomen: Soft. Slightly distended. No tenderness elicited. Extremities: Negative for edema. AV fistula present left upper extremity. IMPRESSION: 1. Status post cardiopulmonary arrest. 2. Probable aspiration pneumonia/possible sepsis secondary to pneumonia. 3. Lactic acidosis. 4. End-stage renal disease on dialysis. 5. PENICILLIN allergy. Pending sepsis workup, empiric coverage with ceftriaxone, Flagyl, and vancomycin adjusted for renal failure. Ventilatory and hemodynamic support. Prognosis is guarded. Critical care time 35 minutes. Thank you for the kind referral. HOMA ESCUDERO M.D. [id number]
[2016-12-03] MEDS ORDERED: PHENYTOIN SODIUM 100 MG/2 ML VIAL IVPB ONE (23:58)
[2016-12-04] MEDS ORDERED: DEXTROSE 50%-WATER 50 ML DISP.SYRIN ONE ×2 (00:53→13:40)
[2016-12-04] MEDS ORDERED: DEXTROSE 50%-WATER 50 ML VIAL IVPUSH ONE (01:00)
[2016-12-04] MEDS: methylPREDNISolone NA SUCC 40 MG/1 ML VIAL IVPB SCH ×3 (01:16→17:39)
[2016-12-04] MEDS: METRONIDAZOLE 500 MG PREMIXED 100 ML IVPB SCH ×3 (01:16→17:37)
[2016-12-04] MEDS: INSULIN SLIDING SCALE (NOVOLOG) 1 VIAL SQ SCH ×6 (01:17→21:10)
[2016-12-04] MEDS: DEXTROSE 5%-LACTATED RINGERS 1,000 ML IV SCH ×3 (01:27→23:00)
[2016-12-04 02:17] LABS: ARTERIAL BLD GAS O2 SATURATION 85.2 % (90-98.9); ARTERIAL BLOOD GAS BASE EXCESS 1.1 meq/l (-2-2); ARTERIAL BLOOD GAS HCO3 26.8 meq/L (22-26); ARTERIAL BLOOD GAS pH 7.34 (7.35-7.45)
[2016-12-04 02:18] LABS: ALLENS TEST POSITIVE; ART PUNCT SITE RIGHT RADIAL; ARTERIAL BLOOD GAS PO2 60.6 mmHg (70-100); LPM/O2% 50%; MECH. VENT. YES; PT. ON O2? YES; TYPE OF O2 MECH VENT; VENT RATE 12; VT/PRESS 450
[2016-12-04] MEDS ORDERED: NOREPINEPHRINE BITARTRATE 4 MG/4 ML ML IV ONE (02:25)
[2016-12-04] MEDS: NOREPINEPHRINE BITARTRATE 16,000 MCG in DEXTROSE 5%-WATER - 484 ML IV SCH (02:45)
--- NOTE | 2016-12-04 02:45 | HOSP ---
Subjective - Review of Symptoms Events since last encounter: Hospitalist Encounter Notified by KELIN Estrada that the patient's condition was deteriorating, he is maxed out on pressors, bradycardic, imminent code. Arrived to bedside, patient is unresponsive, eyes twitching likely due to anoxic brain injury Patient is a Full Code, patient's daughter, HCP was updated of patient's current status by KELIN Estrada. Patient remains a Full Code. Physical Examination Vital Signs: Vital Signs Temperature 91.8 F L 12/04/16 01:50 Pulse Rate 48 L 12/04/16 02:10 Respiratory Rate 12 12/04/16 02:00 Blood Pressure 89/41 12/04/16 02:10 O2 Sat by Pulse Oximetry (%) 100 12/03/16 22:00 Cardiovascular: Yes: Bradycardia, Murmur (1/6 systolic), S1, S2 Respiratory: Yes: Mechanically Ventilated Neurological: Yes: Unresponsive Labs: Laboratory Tests 12/03/16 12/03/16 12/03/16 13:07 13:10 13:10 WBC 9.0 D RBC 3.40 L Hgb 9.8 L D Hct 31.6 L MCV 92.9 MCHC 31.0 L RDW 19.5 H Plt Count 239 MPV 7.6 Neutrophils % 58.8 Lymphocytes % 32.2 D Monocytes % 7.7 Eosinophils % 0.8 D Basophils % 0.5 INR 1.20 H PTT (Actin FS) 34.8 H Puncture Site ABG pH ABG pCO2 at Pt Temp ABG pO2 at Pt Temp ABG HCO3 ABG O2 Sat (Measured) ABG O2 Content ABG Base Excess Paul Test O2 Delivery Device Oxygen Flow Rate Vent Mode Vent Rate Mechanical Rate PEEP Pressure Support Vent Sodium Potassium Chloride Carbon Dioxide Anion Gap BUN Creatinine Creat Clearance w eGFR POC Glucometer 201.13354 Random Glucose Lactic Acid Calcium Total Bilirubin AST ALT Alkaline Phosphatase Creatine Kinase Creatine Kinase Index CK-MB (CK-2) CK-MB (CK-2) Rel Index Troponin I Total Protein Albumin Blood Type Antibody Screen 12/03/16 12/03/16 12/03/16 13:10 13:10 13:10 WBC RBC Hgb Hct MCV MCHC RDW Plt Count MPV Neutrophils % Lymphocytes % Monocytes % Eosinophils % Basophils % INR PTT (Actin FS) Puncture Site ABG pH ABG pCO2 at Pt Temp ABG pO2 at Pt Temp ABG HCO3 ABG O2 Sat (Measured) ABG O2 Content ABG Base Excess Paul Test O2 Delivery Device Oxygen Flow Rate Vent Mode Vent Rate Mechanical Rate PEEP Pressure Support Vent Sodium 136 Potassium 7.0 H* D Chloride 94 L Carbon Dioxide 22 D Anion Gap 20 H BUN 97 H D Creatinine 9.5 H* D Creat Clearance w eGFR 5.42 POC Glucometer Random Glucose 494 H* D Lactic Acid 8.235 H* Calcium 11.6 H D Total Bilirubin 0.4 AST 22 D ALT 24 D Alkaline Phosphatase 73 Creatine Kinase 145 Creatine Kinase Index CK-MB (CK-2) CK-MB (CK-2) Rel Index Troponin I 0.02 D Total Protein 6.6 Albumin 2.8 L Blood Type O POSITIVE Antibody Screen Negative 12/03/16 12/03/16 12/03/16 14:39 14:50 14:50 WBC RBC Hgb Hct MCV MCHC RDW Plt Count MPV Neutrophils % Lymphocytes % Monocytes % Eosinophils % Basophils % INR PTT (Actin FS) Puncture Site Right radial ABG pH 7.24 L* D ABG pCO2 at Pt Temp 41.1 ABG pO2 at Pt Temp 368.0 H* D ABG HCO3 17.1 L ABG O2 Sat (Measured) 99.6 H* ABG O2 Content 15.9 ABG Base Excess -9.3 L Paul Test Positive O2 Delivery Device Mech vent Oxygen Flow Rate 100% Vent Mode A/c Vent Rate 12 Mechanical Rate Y PEEP 5.0 Pressure Support Vent 450 Sodium 138 Potassium 6.4 H* Chloride 101 Carbon Dioxide 20 L Anion Gap 17 H BUN 99 H Creatinine 9.5 H* Creat Clearance w eGFR POC Glucometer Random Glucose 271 H D Lactic Acid 4.126 H* Calcium 8.6 D Total Bilirubin AST ALT Alkaline Phosphatase Creatine Kinase Creatine Kinase Index CK-MB (CK-2) CK-MB (CK-2) Rel Index Troponin I Total Protein Albumin Blood Type Antibody Screen 12/03/16 12/03/16 12/03/16 17:59 20:00 20:00 WBC RBC Hgb Hct MCV MCHC RDW Plt Count MPV Neutrophils % Lymphocytes % Monocytes % Eosinophils % Basophils % INR PTT (Actin FS) Puncture Site ABG pH ABG pCO2 at Pt Temp ABG pO2 at Pt Temp ABG HCO3 ABG O2 Sat (Measured) ABG O2 Content ABG Base Excess Paul Test O2 Delivery Device Oxygen Flow Rate Vent Mode Vent Rate Mechanical Rate PEEP Pressure Support Vent Sodium 140 Potassium 3.7 D Chloride 99 Carbon Dioxide 31 D Anion Gap 10 BUN 26 H D Creatinine 3.1 H D Creat Clearance w eGFR POC Glucometer [phone] Random Glucose 71 L D Lactic Acid Calcium 8.4 L Total Bilirubin AST ALT Alkaline Phosphatase Creatine Kinase 191 D Creatine Kinase Index 0.6 CK-MB (CK-2) 10.918 H CK-MB (CK-2) Rel Index Troponin I 0.07 H D Total Protein Albumin Blood Type Antibody Screen 12/03/16 12/03/16 12/03/16 20:00 20:00 21:51 WBC RBC Hgb Hct MCV MCHC RDW Plt Count MPV Neutrophils % Lymphocytes % Monocytes % Eosinophils % Basophils % INR PTT (Actin FS) Puncture Site ABG pH ABG pCO2 at Pt Temp ABG pO2 at Pt Temp ABG HCO3 ABG O2 Sat (Measured) ABG O2 Content ABG Base Excess Paul Test O2 Delivery Device Oxygen Flow Rate Vent Mode Vent Rate Mechanical Rate PEEP Pressure Support Vent Sodium Potassium Chloride Carbon Dioxide Anion Gap BUN Creatinine Creat Clearance w eGFR POC Glucometer < 50 Random Glucose Lactic Acid 1.206 Calcium Total Bilirubin AST ALT Alkaline Phosphatase Creatine Kinase Creatine Kinase Index CK-MB (CK-2) CK-MB (CK-2) Rel Index Cancelled Troponin I Total Protein Albumin Blood Type Antibody Screen 12/03/16 12/04/16 12/04/16 22:09 00:51 01:07 WBC RBC Hgb Hct MCV MCHC RDW Plt Count MPV Neutrophils % Lymphocytes % Monocytes % Eosinophils % Basophils % INR PTT (Actin FS) Puncture Site ABG pH ABG pCO2 at Pt Temp ABG pO2 at Pt Temp ABG HCO3 ABG O2 Sat (Measured) ABG O2 Content ABG Base Excess Paul Test O2 Delivery Device Oxygen Flow Rate Vent Mode Vent Rate Mechanical Rate PEEP Pressure Support Vent Sodium Potassium Chloride Carbon Dioxide Anion Gap BUN Creatinine Creat Clearance w eGFR POC Glucometer [phone] < 50 242.36672 Random Glucose Lactic Acid Calcium Total Bilirubin AST ALT Alkaline Phosphatase Creatine Kinase Creatine Kinase Index CK-MB (CK-2) CK-MB (CK-2) Rel Index Troponin I Total Protein Albumin Blood Type Antibody Screen 12/04/16 12/04/16 02:08 02:15 WBC RBC Hgb Hct MCV MCHC RDW Plt Count MPV Neutrophils % Lymphocytes % Monocytes % Eosinophils % Basophils % INR PTT (Actin FS) Puncture Site Right radial ABG pH 7.34 L ABG pCO2 at Pt Temp 51.2 H D ABG pO2 at Pt Temp 60.6 L D ABG HCO3 26.8 H ABG O2 Sat (Measured) 85.2 L ABG O2 Content 10.7 L ABG Base Excess 1.1 Paul Test Positive O2 Delivery Device Mech vent Oxygen Flow Rate 50% Vent Mode A/c Vent Rate 12 Mechanical Rate Yes PEEP 5.0 Pressure Support Vent 450 Sodium Potassium Chloride Carbon Dioxide Anion Gap BUN Creatinine Creat Clearance w eGFR POC Glucometer 145.98955 Random Glucose Lactic Acid Calcium Total Bilirubin AST ALT Alkaline Phosphatase Creatine Kinase Creatine Kinase Index CK-MB (CK-2) CK-MB (CK-2) Rel Index Troponin I Total Protein Albumin Blood Type Antibody Screen Current Medications Generic Name Dose Route Start Last Admin Trade Name Freq PRN Reason Stop Dose Admin Acetaminophen 650 mg 12/03/16 16:27 Tylenol Suppository - CA Q4H PRN FEVER OR PAIN Ceftriaxone Sodium 1 gm 12/03/16 17:30 12/03/16 21:15 Rocephin 1gm Ivpb (Pre-Docked) IVPB 1 gm DAILY LUIS ALBEROT Administration Chlorhexidine Gluconate 1 applic 12/03/16 22:00 12/03/16 21:27 Hibiclens For Decolonization - TP 1 applic HS LUIS ALBERTO Administration Dextrose 50 ml 12/04/16 01:00 12/04/16 00:55 D50w (Vial) - IVPUSH 12/04/16 01:01 50 ml NOW ONE Administration Heparin Sodium (Porcine) 5,000 unit 12/03/16 22:00 12/03/16 21:26 Heparin - SQ 5,000 unit TID LUIS ALBERTO Administration Dopamine HCl/Dextrose 250 mls @ 10.206 mls/hr 12/03/16 14:45 12/04/16 02:10 Dopamine 400 Mg/D5w - IVPB 15 mcg/kg/min TITR LUIS ALBERTO Titration Protocol 5 MCG/KG/MIN Pantoprazole Sodium 100 mls @ 100 mls/hr 12/03/16 16:45 12/03/16 16:58 Protonix 40mg Ivpb (Pre-Docked) IVPB 100 mls/hr DAILY LUIS ALBERTO Administration Sodium Chloride 1,000 mls @ 100 mls/hr 12/03/16 16:30 12/03/16 16:47 Normal Saline - IV 100 mls/hr ASDIR LUIS ALBERTO Administration Metronidazole 100 mls @ 100 mls/hr 12/03/16 18:00 12/04/16 01:16 Flagyl 500mg Premixed Ivpb - IVPB 100 mls/hr Q8H-IV LUIS ALBERTO Administration Midazolam HCl 100 mg/ Sodium 100 mls @ 3 mls/hr 12/03/16 21:15 12/03/16 22:29 Chloride IVPB 10 mg/hr TITR LUIS ALBERTO Titration Protocol 3 MG/HR Dextrose/Lactated Ringer's 1,000 mls @ 100 mls/hr 12/04/16 01:30 12/04/16 01:27 D5-Lr - IV 100 mls/hr ASDIR LUIS ALBERTO Administration Norepinephrine Bitartrate 16, 500 mls @ 15 mls/hr 12/04/16 02:45 000 mcg/ Dextrose IV TITR LUIS ALBERTO Protocol 8 MCG/MIN Insulin Aspart 1 vial 12/03/16 18:00 12/04/16 01:17 Novolog Vial Sliding Scale - SQ Not Given Q4HPO LUIS ALBERTO Protocol Levetiracetam 500 mg 12/03/16 21:45 12/03/16 22:01 Keppra Injection - IVPB Not Given BID [facility] Methylprednisolone Sodium Succinate 40 mg 12/03/16 18:00 12/04/16 01:16 Solu-Medrol - IVPB 40 mg Q8H-IV LUIS ALBERTO Administration Mupirocin 1 applic 12/03/16 22:00 12/03/16 21:26 Bactroban Ointment (For Decolonization) - NS 12/08/16 21:59 1 applic BID LUIS ALBERTO Administration Phenytoin Sodium 100 mg 12/04/16 08:00 Dilantin Injection - IVPB Q8H LUIS ALBERTO Intake & Output 12/01/16 12/02/16 12/03/16 12/04/16 23:59 23:59 23:59 23:59 Intake Total 1277.9 Output Total 150 Balance 1127.9 Weight 21.772 kg Vital Signs - 24 hr 12/03/16 12/03/16 12/03/16 13:01 13:25 13:58 Temperature Pulse Rate 0 L 65 50 L Pulse Rate [ Left Radial] Respiratory 0 L 12 20 Rate Blood Pressure 0/0 108/47 Blood Pressure [Left Arm] O2 Sat by Pulse 0 L 100 100 Oximetry (%) 12/03/16 12/03/16 12/03/16 14:31 14:52 15:02 Temperature 94.7 F L 94.6 F L Pulse Rate 45 L Pulse Rate [ 45 L 52 L Left Radial] Respiratory 20 20 Rate Blood Pressure 100/43 Blood Pressure 92/47 105/46 [Left Arm] O2 Sat by Pulse 100 100 Oximetry (%) 12/03/16 12/03/16 12/03/16 15:19 15:29 16:00 Temperature 94.1 F L Pulse Rate 62 Pulse Rate [ 54 L Left Radial] Respiratory 16 16 30 H Rate Blood Pressure 104/76 Blood Pressure 93/45 [Left Arm] O2 Sat by Pulse 97 Oximetry (%) 12/03/16 12/03/16 12/03/16 16:10 16:30 16:50 Temperature Pulse Rate 61 69 Pulse Rate [ Left Radial] Respiratory 12 13 18 Rate Blood Pressure 115/48 122/48 Blood Pressure [Left Arm] O2 Sat by Pulse Oximetry (%) 12/03/16 12/03/16 12/03/16 17:00 17:20 17:30 Temperature 94.3 F L Pulse Rate 68 61 74 Pulse Rate [ Left Radial] Respiratory 20 24 23 Rate Blood Pressure 129/51 128/52 133/58 Blood Pressure [Left Arm] O2 Sat by Pulse Oximetry (%) 12/03/16 12/03/16 12/03/16 17:39 18:00 18:29 Temperature 96.7 F L Pulse Rate 76 79 87 Pulse Rate [ Left Radial] Respiratory 18 31 H Rate Blood Pressure 133/58 162/66 205/81 Blood Pressure [Left Arm] O2 Sat by Pulse Oximetry (%) 12/03/16 12/03/16 12/03/16 18:30 18:42 19:00 Temperature 93 F L Pulse Rate 87 88 Pulse Rate [ Left Radial] Respiratory 22 32 H 29 H Rate Blood Pressure 191/101 198/86 Blood Pressure [Left Arm] O2 Sat by Pulse Oximetry (%) 12/03/16 12/03/16 12/03/16 19:30 20:00 20:20 Temperature 92.9 F L Pulse Rate 78 75 71 Pulse Rate [ Left Radial] Respiratory 21 21 22 Rate Blood Pressure 151/71 137/67 176/68 Blood Pressure [Left Arm] O2 Sat by Pulse Oximetry (%) 12/03/16 12/03/16 12/03/16 21:00 21:25 22:00 Temperature 92.9 F L 92.5 F L Pulse Rate 66 68 Pulse Rate [ Left Radial] Respiratory 18 20 20 Rate Blood Pressure 170/64 158/92 Blood Pressure [Left Arm] O2 Sat by Pulse 100 100 Oximetry (%) 12/03/16 12/04/16 12/04/16 23:00 00:00 00:19 Temperature 92.3 F L Pulse Rate 58 L 63 Pulse Rate [ Left Radial] Respiratory 20 18 21 Rate Blood Pressure 128/57 137/61 Blood Pressure [Left Arm] O2 Sat by Pulse Oximetry (%) 12/04/16 12/04/16 12/04/16 01:00 01:50 02:00 Temperature 91.9 F L 91.8 F L Pulse Rate 57 L 46 L 47 L Pulse Rate [ Left Radial] Respiratory 16 12 12 Rate Blood Pressure 118/51 99/46 83/42 Blood Pressure [Left Arm] O2 Sat by Pulse Oximetry (%) 12/04/16 12/04/16 02:10 02:30 Temperature 91.8 F L Pulse Rate 48 L 51 L Pulse Rate [ Left Radial] Respiratory 12 13 Rate Blood Pressure 89/41 94/44 Blood Pressure [Left Arm] O2 Sat by Pulse Oximetry (%) Critical Care Total Critical Care Time (in minutes): 32 Critical Care Statement: The care of this patient involved high complexity decision making to prevent further life threatening deterioration of the patient 's condition and/or to evalute & treat vital organ system(s) failure or risk of failure.
[2016-12-04 02:57] LABS: ALBUMIN 2.5 g/dl (3.4-5.0); CALCIUM 7.9 mg/dL (8.5-10.1); MAGNESIUM 1.9 mg/dL (1.8-2.4); PHOSPHOROUS 4.2 mg/dL (2.5-4.9)
[2016-12-04 02:59] LABS: BILIRUBIN,TOTAL 0.4 mg/dL (0.2-1.0); TOT PROT 6.2 g/dl (6.4-8.2)
[2016-12-04 03:02] LABS: TROPONIN I 0.11 ng/ml (0.00-0.05)
[2016-12-04 06:08] LABS: MCH 28.1 pg (25.7-33.7); MCHC 31.7 g/dl (32.0-35.9); MEAN CELL VOLUME 88.6 fl (80-96); MEAN PLT VOLUME 7.8 fl (7.5-11.1); PLATELET COUNT 228 K/MM3 (134-434); RDW 18.4 % (11.9-15.9); WHITE BLOOD COUNT 10.6 K/mm3 (4.0-10.0)
[2016-12-04] MEDS ORDERED: ARTIFICIAL TEARS (POLYVINYL ALCOHOL 1.4%) OPTH DROPS OU PRN (06:09)
[2016-12-04] MEDS: HEPARIN NA (PORCINE) 5,000 UNITS/ML 1ML VIAL SQ SCH ×3 (06:16→21:19)
[2016-12-04 06:20] LABS: INR 1.22 (0.82-1.09); PROTHROMBIN TIME (PATIENT) 13.5 SEC (9.98-11.88)
[2016-12-04 06:22] LABS: ACTIVATED PTT 33.5 SECONDS (26.9-34.4)
[2016-12-04 06:43] LABS: ALBUMIN 2.6 g/dl (3.4-5.0); BILIRUBIN,TOTAL 0.5 mg/dL (0.2-1.0); CALCIUM 7.4 mg/dL (8.5-10.1); CREATININE 5.2 mg/dL (0.7-1.3); MAGNESIUM 1.8 mg/dL (1.8-2.4); PHOSPHOROUS 4.3 mg/dL (2.5-4.9); TOT PROT 6.5 g/dl (6.4-8.2)
[2016-12-04 06:50] LABS: FREE T4 1.4 ng/dl (0.76-1.16); THYROID STIMULATING HORMONE 1.18 uIU/ml (0.358-3.74)
--- NOTE | 2016-12-04 06:50 | PN ---
Progress Note (short form) - Note Progress Note: Chief Complaint: Events noted, notes reviewed, remains intubated and on pressors , focal seizures noted, non responsive to verbal commands History of Present Illness: Seen and examined in the ICU. Events noted, notes reviewed, remains intubated and on pressors, focal seizures noted, non responsive to verbal commands On Norepinephrine Bitartrate and Dopamine drips Echocardiography revealed normal LV size and function, mild MR, mild to moderate TR with mild degree of pulmonary HTN, RVSP 30-40 mmHg Medications: Current Medications Acetaminophen (Tylenol Suppository -) 650 mg CO Q4H PRN PRN Reason: FEVER OR PAIN Artificial Tears (Artificial Tears) 1 drop OU QID PRN PRN Reason: DRY EYES Artificial Tears (Artificial Tears Ointment -) 1 applic OD BID LUIS ALBERTO Ceftriaxone Sodium (Rocephin 1gm Ivpb (Pre-Docked)) 1 gm IVPB DAILY [facility] Last Admin: 12/03/16 21:15 Dose: 1 gm Chlorhexidine Gluconate (Hibiclens For Decolonization -) 1 applic TP HS LUIS ALBERTO Last Admin: 12/03/16 21:27 Dose: 1 applic Heparin Sodium (Porcine) (Heparin -) 5,000 unit SQ TID LUIS ALBERTO Last Admin: 12/04/16 06:16 Dose: 5,000 unit Dopamine HCl/Dextrose (Dopamine 400 Mg/D5w -) 250 mls @ 10.206 mls/hr IVPB TITR LUIS ALBERTO; 5 MCG/KG/MIN PRN Reason: Protocol Last Titration: 12/04/16 02:10 Dose: 15 mcg/kg/min Pantoprazole Sodium (Protonix 40mg Ivpb (Pre-Docked)) 100 mls @ 100 mls/hr IVPB DAILY [facility] Last Admin: 12/03/16 16:58 Dose: 100 mls/hr Sodium Chloride (Normal Saline -) 1,000 mls @ 100 mls/hr IV ASDIR LUIS ALBERTO Last Admin: 12/03/16 16:47 Dose: 100 mls/hr Metronidazole (Flagyl 500mg Premixed Ivpb -) 100 mls @ 100 mls/hr IVPB Q8H-IV LUIS ALBERTO Last Admin: 12/04/16 01:16 Dose: 100 mls/hr Midazolam HCl 100 mg/ Sodium (Chloride) 100 mls @ 3 mls/hr IVPB TITR LUIS ALBERTO; 3 MG/ HR PRN Reason: Protocol Last Titration: 12/03/16 22:29 Dose: 10 mg/hr Dextrose/Lactated Ringer's (D5-Lr -) 1,000 mls @ 100 mls/hr IV ASDIR LUIS ALBERTO Last Admin: 12/04/16 01:27 Dose: 100 mls/hr Norepinephrine Bitartrate 16, (000 mcg/ Dextrose) 500 mls @ 15 mls/hr IV TITR LUIS ALBERTO; 8 MCG/MIN PRN Reason: Protocol Last Titration: 12/04/16 04:45 Dose: 4 mcg/min Insulin Aspart (Novolog Vial Sliding Scale -) 1 vial SQ Q4HPO LUIS ALBERTO PRN Reason: Protocol Last Admin: 12/04/16 06:16 Dose: 8 units Levetiracetam (Keppra Injection -) 500 mg IVPB BID [facility] Last Admin: 12/03/16 22:01 Dose: Not Given Methylprednisolone Sodium Succinate (Solu-Medrol -) 40 mg IVPB Q8H-IV LUIS ALBERTO Last Admin: 12/04/16 01:16 Dose: 40 mg Mupirocin (Bactroban Ointment (For Decolonization) -) 1 applic NS BID [facility] Stop: 12/08/16 21:59 Last Admin: 12/03/16 21:26 Dose: 1 applic Phenytoin Sodium (Dilantin Injection -) 100 mg IVPB Q8H LUIS ALBERTO Review of Systems Unable to obtain ROS, reason: Intubated Vital Signs: Last Vital Signs Temp Pulse Resp BP Pulse Ox 91.1 F L 61 15 129/51 100 12/04/16 03:00 12/04/16 04:45 12/04/16 03:25 12/04/16 04:45 12/03/16 22:00 Neck: Supple Negative JVD No Bruit Cardiovascular: S1 S2 Regular Rate and Rhythm Grade 2/6 TALYA Respiratory: Bilateral Scattered Rhonchi Gastrointestinal: Soft Benign Normal Bowel Sounds Ext: No Edema Labs: ABG Results ABG pH 7.34 (7.35-7.45) L 12/04/16 02:15 ABG pCO2 at Pt Temp 51.2 mmHg (35-45) H D 12/04/16 02:15 ABG pO2 at Pt Temp 60.6 mmHg (70-100) L D 12/04/16 02:15 ABG HCO3 26.8 meq/L (22-26) H 12/04/16 02:15 ABG O2 Sat (Measured) 85.2 % (90-98.9) L 12/04/16 02:15 ABG O2 Content 10.7 % vol (15-22) L 12/04/16 02:15 ABG Base Excess 1.1 meq/l (-2-2) 12/04/16 02:15 Troponin, BNP 12/03/16 12/03/16 12/04/16 13:10 20:00 01:40 Troponin I 0.02 D 0.07 H D 0.11 H D 12/04/16 05:05 Troponin I 0.11 H CBC, BMP 12/04/16 05:05 12/04/16 05:05 Hepatic Panel Total Bilirubin 0.5 mg/dL (0.2-1.0) D 12/04/16 05:05 AST 61 U/L (15-37) H 12/04/16 05:05 ALT 42 U/L (12-78) 12/04/16 05:05 Alkaline Phosphatase 75 U/L (45-117) 12/04/16 05:05 Albumin 2.6 g/dl (3.4-5.0) L 12/04/16 05:05 Assessment/Plan ASSESSMENT: 1. Acute hypoxemic respiratory failure referable to 2. Post asystolic arrest in context of 3. ESRD on HD with hyperkalemia, resolved Hyperkalemia 4. Probable septic shock with lactic acidosis, referable to probable pneumonia 5. Probable anoxic encephalopathy, with seizure activity 6. CAD with evidence of demand ischemic injury 7. History of CVA 8. Hyperglycemia 9. Anemia PLAN: 1. Continue pressors maintaining MAP equal or > 65 currently on Dopamine and Norepinephrine, attempt to titrate down 2. EKG this AM 3. Antibiotics as per the primary team 4. Vent management as per the critical care team 5. Consider neurological evaluation for the above noted presentation Mojgan Mathis MD
[2016-12-04 07:51] LABS: ARTERIAL BLOOD GAS BASE EXCESS -0.7 meq/l (-2-2); ARTERIAL BLOOD GAS PO2 96.4 mmHg (70-100); ARTERIAL BLOOD GAS pH 7.32 (7.35-7.45)
[2016-12-04 07:57] LABS: ALLENS TEST POSITIVE; ART PUNCT SITE RIGHT RADIAL; PT. ON O2? YES
[2016-12-04 07:58] LABS: MECH. VENT. YES; TYPE OF O2 MEC.VENT; VENT RATE 13; VT/PRESS 450
[2016-12-04] MEDS ORDERED: PT OWN MED DRAWER 7, Y5N ONE (08:19)
[2016-12-04] MEDS: PHENYTOIN SODIUM 100 MG/2 ML VIAL IVPB SCH ×2 (08:33→16:21)
[2016-12-04] MEDS: levETIRAcetam 500 MG/5 ML INJECTION VIAL IVPB SCH ×2 (09:10→21:20)
--- NOTE | 2016-12-04 09:15 | PN ---
Progress Note, Physician Chief Complaint: Events from last night noted. The patient developed hypotension and bradycardia. Started on IV levophed and Dopamine.? Anoxic damage. Awaiting Neurology eval. Had unevetful HD last evening. serum K now 4.4 - Current Medication List Current Medications: Active Medications Acetaminophen (Tylenol Suppository -) 650 mg SC Q4H PRN PRN Reason: FEVER OR PAIN Artificial Tears (Artificial Tears) 1 drop OU QID PRN PRN Reason: DRY EYES Artificial Tears (Artificial Tears Ointment -) 1 applic OD BID LUIS ALBERTO Ceftriaxone Sodium (Rocephin 1gm Ivpb (Pre-Docked)) 1 gm IVPB DAILY [facility] Last Admin: 12/03/16 21:15 Dose: 1 gm Chlorhexidine Gluconate (Hibiclens For Decolonization -) 1 applic TP HS LUIS ALBERTO Last Admin: 12/03/16 21:27 Dose: 1 applic Heparin Sodium (Porcine) (Heparin -) 5,000 unit SQ TID [facility] Last Admin: 12/04/16 06:16 Dose: 5,000 unit Dopamine HCl/Dextrose (Dopamine 400 Mg/D5w -) 250 mls @ 10.206 mls/hr IVPB TITR LUIS ALBERTO; 5 MCG/KG/MIN PRN Reason: Protocol Last Titration: 12/04/16 08:16 Dose: 5 mcg/kg/min Pantoprazole Sodium (Protonix 40mg Ivpb (Pre-Docked)) 100 mls @ 100 mls/hr IVPB DAILY [facility] Last Admin: 12/03/16 16:58 Dose: 100 mls/hr Sodium Chloride (Normal Saline -) 1,000 mls @ 100 mls/hr IV ASDIR [facility] Last Admin: 12/03/16 16:47 Dose: 100 mls/hr Metronidazole (Flagyl 500mg Premixed Ivpb -) 100 mls @ 100 mls/hr IVPB Q8H-IV LUIS ALBERTO Last Admin: 12/04/16 01:16 Dose: 100 mls/hr Midazolam HCl 100 mg/ Sodium (Chloride) 100 mls @ 3 mls/hr IVPB TITR LUIS ALBERTO; 3 MG/ HR PRN Reason: Protocol Last Titration: 12/03/16 22:29 Dose: 10 mg/hr Dextrose/Lactated Ringer's (D5-Lr -) 1,000 mls @ 100 mls/hr IV ASDIR LUIS ALBERTO Last Admin: 12/04/16 01:27 Dose: 100 mls/hr Norepinephrine Bitartrate 16, (000 mcg/ Dextrose) 500 mls @ 15 mls/hr IV TITR LUIS ALBERTO; 8 MCG/MIN PRN Reason: Protocol Last Titration: 12/04/16 08:17 Dose: 2 mcg/min Insulin Aspart (Novolog Vial Sliding Scale -) 1 vial SQ Q4HPO LUIS ALBERTO PRN Reason: Protocol Last Admin: 12/04/16 06:16 Dose: 8 units Levetiracetam (Keppra Injection -) 500 mg IVPB BID [facility] Last Admin: 12/03/16 22:01 Dose: Not Given Methylprednisolone Sodium Succinate (Solu-Medrol -) 40 mg IVPB Q8H-IV LUIS ALBERTO Last Admin: 12/04/16 01:16 Dose: 40 mg Mupirocin (Bactroban Ointment (For Decolonization) -) 1 applic NS BID [facility] Stop: 12/08/16 21:59 Last Admin: 12/03/16 21:26 Dose: 1 applic Phenytoin Sodium (Dilantin Injection -) 100 mg IVPB Q8H [facility] Last Admin: 12/04/16 08:33 Dose: 100 mg - Objective Vital Signs: Vital Signs Temperature 92.6 F L 12/04/16 08:00 Pulse Rate 64 12/04/16 08:17 Respiratory Rate 19 12/04/16 08:00 Blood Pressure 132/55 12/04/16 08:17 O2 Sat by Pulse Oximetry (%) 100 12/03/16 22:00 Constitutional: Yes: Mild Distress Neck: Yes: Supple Cardiovascular: Yes: Regular Rate and Rhythm, S1, S2 Respiratory: Yes: Diminished, Mechanically Ventilated, Rales, Rhonchi Gastrointestinal: Yes: Normal Bowel Sounds, Soft Genitourinary: Yes: Anuria Neurological: Yes: Seizure, Unresponsive Labs: CBC, BMP 12/04/16 05:05 12/04/16 05:05 INR, PTT INR 1.22 (0.82-1.09) H 12/04/16 05:05 Problem List - Problems (1) Cardiac arrest Code(s): I46.9 - CARDIAC ARREST, CAUSE UNSPECIFIED (2) Hyperkalemia Code(s): E87.5 - HYPERKALEMIA (3) Hypothermia Code(s): T68.XXXA - HYPOTHERMIA, INITIAL ENCOUNTER Qualifiers: Encounter type: initial encounter Qualified Code(s): T68.XXXA - Hypothermia, initial encounter (4) End stage kidney disease Code(s): N18.6 - END STAGE RENAL DISEASE (5) CVA (cerebral vascular accident) Code(s): I63.9 - CEREBRAL INFARCTION, UNSPECIFIED (6) Hyperkalemia, diminished renal excretion Code(s): E87.5 - HYPERKALEMIA Assessment/Plan 76 y/o male admitted with : 1 Cardiac arrest. ? Primary cardiac event 2. Minimal Hyperkalemia..Resolved 3. Hypotension. On dopamine and Levophed. The BP and Hemodynamic staus fairly stable now. Will try to taper dopamine first. 4,ESRD. HD in AM if stable 5. seizures...Probably anoxic. Awaiting Neurology eval. Will monitor the patient's general status. Discussed with the family Thank you. Will follow with you. Elaina Knox MD
[2016-12-04] MEDS: cefTRIAXone 1 GM/50 ML BAG (PRE-DOCKED) IVPB SCH (09:35)
[2016-12-04] MEDS ORDERED: MINERAL OIL/PETROLATUM,WHITE 3.5 GM TUBE OD SCH (10:00)
[2016-12-04] MEDS: PANTOPRAZOLE SODIUM 100 ML IVPB SCH (10:35)
--- NOTE | 2016-12-04 10:35 | PN ---
Progress Note, Physician History of Present Illness: Eyes open on ventilator, but does not make eye contact Twitching of UE noted Remains intubated; On pressors Hypothermic on protocol Blood c/s prelim no growth - Current Medication List Current Medications: Active Medications Acetaminophen (Tylenol Suppository -) 650 mg [place] Q4H PRN PRN Reason: FEVER OR PAIN Artificial Tears (Artificial Tears) 1 drop OU QID PRN PRN Reason: DRY EYES Artificial Tears (Artificial Tears Ointment -) 1 applic OD BID [facility] Ceftriaxone Sodium (Rocephin 1gm Ivpb (Pre-Docked)) 1 gm IVPB DAILY [facility] Last Admin: 12/04/16 09:35 Dose: 1 gm Chlorhexidine Gluconate (Hibiclens For Decolonization -) 1 applic TP HS [facility]ERT[facility] Last Admin: 12/03/16 21:27 Dose: 1 applic Heparin Sodium (Porcine) (Heparin -) 5,000 unit SQ TID [facility] Last Admin: 12/04/16 06:16 Dose: 5,000 unit Dopamine HCl/Dextrose (Dopamine 400 Mg/D5w -) 250 mls @ 10.206 mls/hr IVPB TITR LUIS ALBERTO; 5 MCG/KG/MIN PRN Reason: Protocol Last Titration: 12/04/16 09:12 Dose: 0 mcg/kg/min Pantoprazole Sodium (Protonix 40mg Ivpb (Pre-Docked)) 100 mls @ 100 mls/hr IVPB DAILY [facility] Last Admin: 12/03/16 16:58 Dose: 100 mls/hr Sodium Chloride (Normal Saline -) 1,000 mls @ 100 mls/hr IV ASDIR [facility] Last Admin: 12/03/16 16:47 Dose: 100 mls/hr Metronidazole (Flagyl 500mg Premixed Ivpb -) 100 mls @ 100 mls/hr IVPB Q8H-IV [facility] Last Admin: 12/04/16 01:16 Dose: 100 mls/hr Midazolam HCl 100 mg/ Sodium (Chloride) 100 mls @ 3 mls/hr IVPB TITR LUIS ALBERTO; 3 MG/ HR PRN Reason: Protocol Last Titration: 12/03/16 22:29 Dose: 10 mg/hr Dextrose/Lactated Ringer's (D5-Lr -) 1,000 mls @ 100 mls/hr IV ASDIR [facility] Last Admin: 12/04/16 01:27 Dose: 100 mls/hr Norepinephrine Bitartrate 16, (000 mcg/ Dextrose) 500 mls @ 15 mls/hr IV TITR LUIS ALBERTO; 8 MCG/MIN PRN Reason: Protocol Last Titration: 12/04/16 08:17 Dose: 2 mcg/min Insulin Aspart (Novolog Vial Sliding Scale -) 1 vial SQ Q4HPO [facility]ERTO PRN Reason: Protocol Last Admin: 12/04/16 09:35 Dose: 4 units Levetiracetam (Keppra Injection -) 500 mg IVPB BID [facility] Last Admin: 12/04/16 09:10 Dose: 500 mg Methylprednisolone Sodium Succinate (Solu-Medrol -) 40 mg IVPB Q8H-IV [facility] Last Admin: 12/04/16 10:14 Dose: 40 mg Mupirocin (Bactroban Ointment (For Decolonization) -) 1 applic NS BID [facility] Stop: 12/08/16 21:59 Last Admin: 12/03/16 21:26 Dose: 1 applic Phenytoin Sodium (Dilantin Injection -) 100 mg IVPB Q8H [facility] Last Admin: 12/04/16 08:33 Dose: 100 mg - Objective Vital Signs: Vital Signs Temperature 93.8 F L 12/04/16 10:00 Pulse Rate 60 12/04/16 10:00 Respiratory Rate 33 H 12/04/16 10:00 Blood Pressure 141/85 12/04/16 10:00 O2 Sat by Pulse Oximetry (%) 99 12/04/16 09:15 Constitutional: Yes: No Distress Eyes: Yes: Conjunctiva Clear HENT: Yes: Other (intubated) Cardiovascular: Yes: Regular Rate and Rhythm, S1, S2 Respiratory: Yes: Mechanically Ventilated Gastrointestinal: Yes: Normal Bowel Sounds, Soft. No: Tenderness Edema: No Labs: CBC, BMP 12/04/16 05:05 12/04/16 05:05 INR, PTT INR 1.22 (0.82-1.09) H 12/04/16 05:05 Assessment/Plan S/P cardiopulmonary arrest Respiratory failure Probable aspiration R pneumonia Possible sepsis/ septic shock secondary to pneumonia ESRD PCN allergy lactic acidosis Await c/s Continue empiric ceftriaxone/ flagyl ventilatory/ hemodynamic support Prognosis guarded
[2016-12-04] MEDS ORDERED: LORAZEPAM 40 MG in DEXTROSE 5%-WATER - 100 ML IVPB SCH ×2 (10:45→13:45)
[2016-12-04] MEDS: MUPIROCIN 2% TOPICAL OINTMENT FOR DECOLONIZATION NS SCH ×2 (10:51→21:21)
--- NOTE | 2016-12-04 10:54 | EKG ---
Test Reason : Blood Pressure : / mmHG Vent. Rate : 056 BPM Atrial Rate : 056 BPM P-R Int : 158 ms QRS Dur : 154 ms QT Int : 580 ms P-R-T Axes : -12 -56 096 degrees QTc Int : 559 ms SINUS BRADYCARDIA LEFT AXIS DEVIATION LEFT BUNDLE BRANCH BLOCK ABNORMAL ECG WHEN COMPARED WITH ECG OF 03-DEC-2016 13:33, NO SIGNIFICANT CHANGE WAS FOUND Confirmed by ALETA GREY, NEWTON ([id number]) on 12/04/2016 10:54:22 AM Referred By: Gagan RAMIREZ Confirmed By:NEWTON RIVER MD
[2016-12-04] MEDS ORDERED: LORAZEPAM CARPU-JECT 2 MG/ML DISP.SYRIN IVPUSH PRN (11:28)
[2016-12-04] MEDS: LORAZEPAM 40 MG in DEXTROSE 5%-WATER - 100 ML IVPB SCH (11:32)
[2016-12-04] MEDS: ARTIFICIAL TEARS (POLYVINYL ALCOHOL 1.4%) OPTH DROPS OU PRN (11:46)
--- NOTE | 2016-12-04 12:59 | PN ---
Teaching Attending Note Name of Resident: Tato Fields ATTENDING PHYSICIAN STATEMENT I saw and evaluated the patient. I reviewed the resident's note and discussed the case with the resident. I agree with the resident's findings and plan as documented. SUBJECTIVE: Patient seen and examined in the ICU. Remains intubated and sedated. AC mode of vent 55% FiO2. NE and dopamine for BP support. Intake & Output 12/01/16 12/02/16 12/03/16 12/04/16 23:59 23:59 23:59 23:59 Intake Total 1277.9 1672 Output Total 150 50 Balance 1127.9 1622 Weight 48 lb 120 lb 6.4 oz Last Vital Signs Temp Pulse Resp BP Pulse Ox 93.8 F L 60 35 H 141/85 99 12/04/16 10:00 12/04/16 10:00 12/04/16 11:45 12/04/16 10:00 12/04/16 10:00 Active Medications Acetaminophen (Tylenol Suppository -) 650 mg [place] Q4H PRN PRN Reason: FEVER OR PAIN Artificial Tears (Artificial Tears) 1 drop OU QID PRN PRN Reason: DRY EYES Last Admin: 12/04/16 11:46 Dose: 1 drop Artificial Tears (Artificial Tears Ointment -) 1 applic OD BID [facility] Ceftriaxone Sodium (Rocephin 1gm Ivpb (Pre-Docked)) 1 gm IVPB DAILY [facility] Last Admin: 12/04/16 09:35 Dose: 1 gm Chlorhexidine Gluconate (Hibiclens For Decolonization -) 1 applic TP HS [facility] Last Admin: 12/03/16 21:27 Dose: 1 applic Heparin Sodium (Porcine) (Heparin -) 5,000 unit SQ TID [facility] Last Admin: 12/04/16 06:16 Dose: 5,000 unit Dopamine HCl/Dextrose (Dopamine 400 Mg/D5w -) 250 mls @ 10.206 mls/hr IVPB TITR [facility]IS ALBERTO; 5 MCG/KG/MIN PRN Reason: Protocol Last Titration: 12/04/16 09:12 Dose: 0 mcg/kg/min Pantoprazole Sodium (Protonix 40mg Ivpb (Pre-Docked)) 100 mls @ 100 mls/hr IVPB DAILY [facility] Last Admin: 12/04/16 10:35 Dose: 100 mls/hr Sodium Chloride (Normal Saline -) 1,000 mls @ 100 mls/hr IV ASDIR [facility] Last Admin: 12/03/16 16:47 Dose: 100 mls/hr Metronidazole (Flagyl 500mg Premixed Ivpb -) 100 mls @ 100 mls/hr IVPB Q8H-IV [facility] Last Admin: 12/04/16 10:35 Dose: 100 mls/hr Dextrose/Lactated Ringer's (D5-Lr -) 1,000 mls @ 100 mls/hr IV ASDIR [facility] Last Admin: 12/04/16 10:50 Dose: 100 mls/hr Norepinephrine Bitartrate 16, (000 mcg/ Dextrose) 500 mls @ 15 mls/hr IV TITR [facility] ALBERTO; 8 MCG/MIN PRN Reason: Protocol Last Titration: 12/04/16 10:00 Dose: 0 mcg/min Lorazepam 40 mg/ Dextrose 120 mls @ 6 mls/hr IVPB TITR [facility] ALBERTO; 2 MG/HR PRN Reason: Protocol Last Admin: 12/04/16 11:32 Dose: 6 mls/hr Insulin Aspart (Novolog Vial Sliding Scale -) 1 vial SQ Q4HPO [facility] PRN Reason: Protocol Last Admin: 12/04/16 09:35 Dose: 4 units Levetiracetam (Keppra Injection -) 500 mg IVPB BID [facility] Last Admin: 12/04/16 09:10 Dose: 500 mg Lorazepam (Ativan Injection -) 1 mg IVPUSH Q2H PRN PRN Reason: MUSCLE SPASMS Methylprednisolone Sodium Succinate (Solu-Medrol -) 40 mg IVPB Q8H-IV [facility] Last Admin: 12/04/16 10:14 Dose: 40 mg Mupirocin (Bactroban Ointment (For Decolonization) -) 1 applic NS BID [facility] Stop: 12/08/16 21:59 Last Admin: 12/04/16 10:51 Dose: 1 applic Phenytoin Sodium (Dilantin Injection -) 100 mg IVPB Q8H [facility] Last Admin: 12/04/16 08:33 Dose: 100 mg GENERAL: Sedated, intubated. HEAD: Normal with no signs of trauma. EYES: Pupils small, sclerae anicteric, conjunctivae clear. EARS, NOSE, THROAT: Dry mucous membranes. NECK: Supple without lymphadenopathy, JVD, or masses. LUNGS: Bilateral rhonchi, no wheezing HEART: Normal S1 and S2, bradycardia, no murmur ABDOMEN: Soft, not distended, normoactive bowel sounds, no masses. No hepatomegaly or splenomegaly. MUSCULOSKELETAL: No bony deformities. UPPER EXTREMITIES: 1+ pulses, warm, well-perfused. No cyanosis. No clubbing. delayed capillary refill, no peripheral edema. LOWER EXTREMITIES: 2+ pulses, warm, well-perfused. No calf tenderness. No peripheral edema. NEUROLOGICAL: non-responsive PSYCHIATRIC: non-responsive SKIN: cool to touch Laboratory Results - last 24 hr 12/03/16 12/03/16 12/03/16 13:07 13:10 13:10 WBC 9.0 D RBC 3.40 L Hgb 9.8 L D Hct 31.6 L MCV 92.9 MCHC 31.0 L RDW 19.5 H Plt Count 239 MPV 7.6 Neutrophils % 58.8 Lymphocytes % 32.2 D Monocytes % 7.7 Eosinophils % 0.8 D Basophils % 0.5 INR 1.20 H PTT (Actin FS) 34.8 H Puncture Site ABG pH ABG pCO2 at Pt Temp ABG pO2 at Pt Temp ABG HCO3 ABG O2 Sat (Measured) ABG O2 Content ABG Base Excess Paul Test O2 Delivery Device Oxygen Flow Rate Vent Mode Vent Rate Mechanical Rate PEEP Pressure Support Vent Sodium Potassium Chloride Carbon Dioxide Anion Gap BUN Creatinine Creat Clearance w eGFR POC Glucometer 201.02270 Random Glucose Lactic Acid Calcium Phosphorus Magnesium Total Bilirubin AST ALT Alkaline Phosphatase Creatine Kinase Creatine Kinase Index CK-MB (CK-2) CK-MB (CK-2) Rel Index Troponin I Total Protein Albumin TSH Free T4 Random Vancomycin Hepatitis C Antibody Blood Type Antibody Screen 12/03/16 12/03/16 12/03/16 13:10 13:10 13:10 WBC RBC Hgb Hct MCV MCHC RDW Plt Count MPV Neutrophils % Lymphocytes % Monocytes % Eosinophils % Basophils % INR PTT (Actin FS) Puncture Site ABG pH ABG pCO2 at Pt Temp ABG pO2 at Pt Temp ABG HCO3 ABG O2 Sat (Measured) ABG O2 Content ABG Base Excess Paul Test O2 Delivery Device Oxygen Flow Rate Vent Mode Vent Rate Mechanical Rate PEEP Pressure Support Vent Sodium 136 Potassium 7.0 H* D Chloride 94 L Carbon Dioxide 22 D Anion Gap 20 H BUN 97 H D Creatinine 9.5 H* D Creat Clearance w eGFR 5.42 POC Glucometer Random Glucose 494 H* D Lactic Acid 8.235 H* Calcium 11.6 H D Phosphorus Magnesium Total Bilirubin 0.4 AST 22 D ALT 24 D Alkaline Phosphatase 73 Creatine Kinase 145 Creatine Kinase Index CK-MB (CK-2) CK-MB (CK-2) Rel Index Troponin I 0.02 D Total Protein 6.6 Albumin 2.8 L TSH Free T4 Random Vancomycin Hepatitis C Antibody Blood Type O POSITIVE Antibody Screen Negative 12/03/16 12/03/16 12/03/16 14:39 14:50 14:50 WBC RBC Hgb Hct MCV MCHC RDW Plt Count MPV Neutrophils % Lymphocytes % Monocytes % Eosinophils % Basophils % INR PTT (Actin FS) Puncture Site Right radial ABG pH 7.24 L* D ABG pCO2 at Pt Temp 41.1 ABG pO2 at Pt Temp 368.0 H* D ABG HCO3 17.1 L ABG O2 Sat (Measured) 99.6 H* ABG O2 Content 15.9 ABG Base Excess -9.3 L Paul Test Positive O2 Delivery Device Mech vent Oxygen Flow Rate 100% Vent Mode A/c Vent Rate 12 Mechanical Rate Y PEEP 5.0 Pressure Support Vent 450 Sodium 138 Potassium 6.4 H* Chloride 101 Carbon Dioxide 20 L Anion Gap 17 H BUN 99 H Creatinine 9.5 H* Creat Clearance w eGFR POC Glucometer Random Glucose 271 H D Lactic Acid 4.126 H* Calcium 8.6 D Phosphorus Magnesium Total Bilirubin AST ALT Alkaline Phosphatase Creatine Kinase Creatine Kinase Index CK-MB (CK-2) CK-MB (CK-2) Rel Index Troponin I Total Protein Albumin TSH Free T4 Random Vancomycin Hepatitis C Antibody Blood Type Antibody Screen 12/03/16 12/03/16 12/03/16 17:00 17:59 20:00 WBC RBC Hgb Hct MCV MCHC RDW Plt Count MPV Neutrophils % Lymphocytes % Monocytes % Eosinophils % Basophils % INR PTT (Actin FS) Puncture Site ABG pH ABG pCO2 at Pt Temp ABG pO2 at Pt Temp ABG HCO3 ABG O2 Sat (Measured) ABG O2 Content ABG Base Excess Paul Test O2 Delivery Device Oxygen Flow Rate Vent Mode Vent Rate Mechanical Rate PEEP Pressure Support Vent Sodium 140 Potassium 3.7 D Chloride 99 Carbon Dioxide 31 D Anion Gap 10 BUN 26 H D Creatinine 3.1 H D Creat Clearance w eGFR POC Glucometer 326.88487 Random Glucose 71 L D Lactic Acid Calcium 8.4 L Phosphorus Magnesium Total Bilirubin AST ALT Alkaline Phosphatase Creatine Kinase Creatine Kinase Index CK-MB (CK-2) CK-MB (CK-2) Rel Index Troponin I Total Protein Albumin TSH Free T4 Random Vancomycin Hepatitis C Antibody Cancelled Blood Type Antibody Screen 12/03/16 12/03/16 12/03/16 20:00 20:00 20:00 WBC RBC Hgb Hct MCV MCHC RDW Plt Count MPV Neutrophils % Lymphocytes % Monocytes % Eosinophils % Basophils % INR PTT (Actin FS) Puncture Site ABG pH ABG pCO2 at Pt Temp ABG pO2 at Pt Temp ABG HCO3 ABG O2 Sat (Measured) ABG O2 Content ABG Base Excess Paul Test O2 Delivery Device Oxygen Flow Rate Vent Mode Vent Rate Mechanical Rate PEEP Pressure Support Vent Sodium Potassium Chloride Carbon Dioxide Anion Gap BUN Creatinine Creat Clearance w eGFR POC Glucometer Random Glucose Lactic Acid 1.206 Calcium Phosphorus Magnesium Total Bilirubin AST ALT Alkaline Phosphatase Creatine Kinase 191 D Creatine Kinase Index 0.6 CK-MB (CK-2) 10.918 H CK-MB (CK-2) Rel Index Cancelled Troponin I 0.07 H D Total Protein Albumin TSH Free T4 Random Vancomycin Hepatitis C Antibody Blood Type Antibody Screen 12/03/16 12/03/16 12/04/16 21:51 22:09 00:51 WBC RBC Hgb Hct MCV MCHC RDW Plt Count MPV Neutrophils % Lymphocytes % Monocytes % Eosinophils % Basophils % INR PTT (Actin FS) Puncture Site ABG pH ABG pCO2 at Pt Temp ABG pO2 at Pt Temp ABG HCO3 ABG O2 Sat (Measured) ABG O2 Content ABG Base Excess Paul Test O2 Delivery Device Oxygen Flow Rate Vent Mode Vent Rate Mechanical Rate PEEP Pressure Support Vent Sodium Potassium Chloride Carbon Dioxide Anion Gap BUN Creatinine Creat Clearance w eGFR POC Glucometer < 50 155.22801 < 50 Random Glucose Lactic Acid Calcium Phosphorus Magnesium Total Bilirubin AST ALT Alkaline Phosphatase Creatine Kinase Creatine Kinase Index CK-MB (CK-2) CK-MB (CK-2) Rel Index Troponin I Total Protein Albumin TSH Free T4 Random Vancomycin Hepatitis C Antibody Blood Type Antibody Screen 12/04/16 12/04/16 12/04/16 01:07 01:40 01:40 WBC RBC Hgb Hct MCV MCHC RDW Plt Count MPV Neutrophils % Lymphocytes % Monocytes % Eosinophils % Basophils % INR PTT (Actin FS) Puncture Site ABG pH ABG pCO2 at Pt Temp ABG pO2 at Pt Temp ABG HCO3 ABG O2 Sat (Measured) ABG O2 Content ABG Base Excess Paul Test O2 Delivery Device Oxygen Flow Rate Vent Mode Vent Rate Mechanical Rate PEEP Pressure Support Vent Sodium 140 Potassium 3.5 Chloride 100 Carbon Dioxide 30 Anion Gap 10 BUN 42 H D Creatinine 5.0 H D Creat Clearance w eGFR 11.37 POC Glucometer 242.19603 Random Glucose 131 H D Lactic Acid Calcium 7.9 L Phosphorus 4.2 Magnesium 1.9 Total Bilirubin 0.4 AST 53 H D ALT 36 D Alkaline Phosphatase 65 Creatine Kinase 607 H D Creatine Kinase Index CK-MB (CK-2) CK-MB (CK-2) Rel Index Troponin I 0.11 H D Total Protein 6.2 L Albumin 2.5 L TSH Free T4 Random Vancomycin Hepatitis C Antibody Blood Type Antibody Screen 12/04/16 12/04/16 12/04/16 01:40 01:40 02:08 WBC RBC Hgb Hct MCV MCHC RDW Plt Count MPV Neutrophils % Lymphocytes % Monocytes % Eosinophils % Basophils % INR PTT (Actin FS) Puncture Site ABG pH ABG pCO2 at Pt Temp ABG pO2 at Pt Temp ABG HCO3 ABG O2 Sat (Measured) ABG O2 Content ABG Base Excess Paul Test O2 Delivery Device Oxygen Flow Rate Vent Mode Vent Rate Mechanical Rate PEEP Pressure Support Vent Sodium Potassium Chloride Carbon Dioxide Anion Gap BUN Creatinine Creat Clearance w eGFR POC Glucometer 145.66501 Random Glucose Lactic Acid 1.977 Calcium Phosphorus Magnesium Total Bilirubin AST ALT Alkaline Phosphatase Creatine Kinase Creatine Kinase Index CK-MB (CK-2) CK-MB (CK-2) Rel Index Cancelled Troponin I Total Protein Albumin TSH Free T4 Random Vancomycin Hepatitis C Antibody Blood Type Antibody Screen 12/04/16 12/04/16 12/04/16 02:15 03:06 04:56 WBC RBC Hgb Hct MCV MCHC RDW Plt Count MPV Neutrophils % Lymphocytes % Monocytes % Eosinophils % Basophils % INR PTT (Actin FS) Puncture Site Right radial ABG pH 7.34 L ABG pCO2 at Pt Temp 51.2 H D ABG pO2 at Pt Temp 60.6 L D ABG HCO3 26.8 H ABG O2 Sat (Measured) 85.2 L ABG O2 Content 10.7 L ABG Base Excess 1.1 Paul Test Positive O2 Delivery Device Mech vent Oxygen Flow Rate 50% Vent Mode A/c Vent Rate 12 Mechanical Rate Yes PEEP 5.0 Pressure Support Vent 450 Sodium Potassium Chloride Carbon Dioxide Anion Gap BUN Creatinine Creat Clearance w eGFR POC Glucometer 178.04802 264.88451 Random Glucose Lactic Acid Calcium Phosphorus Magnesium Total Bilirubin AST ALT Alkaline Phosphatase Creatine Kinase Creatine Kinase Index CK-MB (CK-2) CK-MB (CK-2) Rel Index Troponin I Total Protein Albumin TSH Free T4 Random Vancomycin Hepatitis C Antibody Blood Type Antibody Screen 12/04/16 12/04/16 12/04/16 05:05 05:05 05:05 WBC 10.6 H RBC 3.51 L Hgb 9.8 L Hct 31.0 L MCV 88.6 MCHC 31.7 L RDW 18.4 H Plt Count 228 MPV 7.8 Neutrophils % Lymphocytes % Monocytes % Eosinophils % Basophils % INR 1.22 H PTT (Actin FS) 33.5 Puncture Site ABG pH ABG pCO2 at Pt Temp ABG pO2 at Pt Temp ABG HCO3 ABG O2 Sat (Measured) ABG O2 Content ABG Base Excess Paul Test O2 Delivery Device Oxygen Flow Rate Vent Mode Vent Rate Mechanical Rate PEEP Pressure Support Vent Sodium 139 Potassium 4.4 D Chloride 100 Carbon Dioxide 27 Anion Gap 12 BUN 44 H Creatinine 5.2 H Creat Clearance w eGFR 10.87 POC Glucometer Random Glucose 252 H D Lactic Acid Calcium 7.4 L Phosphorus 4.3 Magnesium 1.8 Total Bilirubin 0.5 D AST 61 H ALT 42 Alkaline Phosphatase 75 Creatine Kinase Creatine Kinase Index CK-MB (CK-2) CK-MB (CK-2) Rel Index Troponin I Total Protein 6.5 Albumin 2.6 L TSH 1.18 Free T4 1.40 H Random Vancomycin Hepatitis C Antibody Blood Type Antibody Screen 12/04/16 12/04/16 12/04/16 05:05 05:05 05:05 WBC RBC Hgb Hct MCV MCHC RDW Plt Count MPV Neutrophils % Lymphocytes % Monocytes % Eosinophils % Basophils % INR PTT (Actin FS) Puncture Site ABG pH ABG pCO2 at Pt Temp ABG pO2 at Pt Temp ABG HCO3 ABG O2 Sat (Measured) ABG O2 Content ABG Base Excess Paul Test O2 Delivery Device Oxygen Flow Rate Vent Mode Vent Rate Mechanical Rate PEEP Pressure Support Vent Sodium Potassium Chloride Carbon Dioxide Anion Gap BUN Creatinine Creat Clearance w eGFR POC Glucometer Random Glucose Lactic Acid 1.542 Calcium Phosphorus Magnesium Total Bilirubin AST ALT Alkaline Phosphatase Creatine Kinase 761 H D Creatine Kinase Index 2.1 CK-MB (CK-2) 16.193 H CK-MB (CK-2) Rel Index Cancelled Troponin I 0.11 H Total Protein Albumin TSH Free T4 Random Vancomycin Hepatitis C Antibody Blood Type Antibody Screen 12/04/16 12/04/16 12/04/16 06:00 07:30 12:00 WBC RBC Hgb Hct MCV MCHC RDW Plt Count MPV Neutrophils % Lymphocytes % Monocytes % Eosinophils % Basophils % INR PTT (Actin FS) Puncture Site Right radial ABG pH 7.32 L ABG pCO2 at Pt Temp 49.6 H ABG pO2 at Pt Temp 96.4 D ABG HCO3 25.0 ABG O2 Sat (Measured) 96.0 ABG O2 Content 12.9 L ABG Base Excess -0.7 Paul Test Positive O2 Delivery Device Mec.vent Oxygen Flow Rate 55% Vent Mode A/c Vent Rate 13 Mechanical Rate Yes PEEP 5.0 Pressure Support Vent 450 Sodium Potassium Chloride Carbon Dioxide Anion Gap BUN Creatinine Creat Clearance w eGFR POC Glucometer 317.05457 Random Glucose Lactic Acid Calcium Phosphorus Magnesium Total Bilirubin AST ALT Alkaline Phosphatase Creatine Kinase Creatine Kinase Index CK-MB (CK-2) CK-MB (CK-2) Rel Index Troponin I Total Protein Albumin TSH Free T4 Random Vancomycin 10.239 Hepatitis C Antibody Blood Type Antibody Screen Problem List - Problems (1) Cardiac arrest Code(s): I46.9 - CARDIAC ARREST, CAUSE UNSPECIFIED (2) Hyperkalemia Code(s): E87.5 - HYPERKALEMIA (3) Hypothermia Code(s): T68.XXXA - HYPOTHERMIA, INITIAL ENCOUNTER Qualifiers: Encounter type: initial encounter Qualified Code(s): T68.XXXA - Hypothermia, initial encounter (4) End stage kidney disease Code(s): N18.6 - END STAGE RENAL DISEASE (5) CVA (cerebral vascular accident) Code(s): I63.9 - CEREBRAL INFARCTION, UNSPECIFIED (6) Hyperkalemia, diminished renal excretion Code(s): E87.5 - HYPERKALEMIA Assessment/Plan Hypothermia protocol AC Mode of vent / adjustments made HD per Renal Wean pressors Neuro checks Overall prognosis for meaningful recovery initially appears poor Dr Avendaño CCTime 35"
[2016-12-04] MEDS ORDERED: levETIRAcetam 500 MG/5 ML INJECTION VIAL IVPB SCH (13:51)
[2016-12-04] MEDS ORDERED: DEXTROSE 50%-WATER 50 ML VIAL IVPUSH PRN ×2 (13:57→15:08)
[2016-12-04] MEDS: PROPOFOL 100 ML IVPB SCH (14:14)
[2016-12-04] MEDS ORDERED: VALPROATE SODIUM 500 MG/5 ML VIAL IVPB ONE (14:30)
[2016-12-04] MEDS: VALPROATE SODIUM 500 MG/5 ML VIAL IVPB SCH ×2 (14:36→20:30)
--- NOTE | 2016-12-04 14:53 | CONSULT ---
Consult Consult Specialty:: Neurology Reason for Consultation:: Post cardiac arrest, seizure - History of Present Illness History of Present Illness: 76 year old man with history of left craniotomy, subdural hemorrhage, seizure disorder, end stage renal disease on dialysis, diabetes, stroke, left lung collapse, presents to [facility] status post cardiac arrest. Patient was picked up by ambulette and en route to dialysis was noted to be unresponsive. The patient was found to be in cardiac arrest, coded, and brought to ED. In ED was given epinephrine, intubated and sedated, and hypothermic. Patient on hypothermia protocol. Not paralyzed. Since yesterday noted seizure like movements. Was previously on propofol with no improvement in symptoms. Now on ativan drip. Started by ICU team on keppra 500 mg bid, dilantin 100 mg TID without improvement. No head imaging or EEG complete. - Past Medical History [employer]: Yes: CVA, Dementia Pulmonary: Yes: Previously Intubated Renal/: Yes: Renal Failure, Hemodialysis Endocrine: Yes: Diabetes Insipidus - Alcohol/Substance Use Hx Alcohol Use: No - Smoking History Smoking history: Former smoker Have you smoked in the past 12 months: No Aproximately how many cigarettes per day: 0 If you are a former smoker, when did you quit?: 1999 Home Medications - Allergies Allergies/Adverse Reactions: Allergies Allergy/AdvReac Type Severity Reaction Status Date / Time Penicillins Allergy Intermediate Rash Verified 12/03/16 13:33 - Home Medications Home Medications: Ambulatory Orders Unobtainable [Unobtainable] 12/03/16 Review of Systems Unable to obtain ROS, reason: mental status Physical Exam Vital Signs: Vital Signs Temperature 93.5 F L 12/04/16 13:00 Pulse Rate 65 12/04/16 13:00 Respiratory Rate 29 H 12/04/16 13:50 Blood Pressure 145/38 12/04/16 13:00 O2 Sat by Pulse Oximetry (%) 99 12/04/16 10:00 Neurological: Yes: Other (Intubated, sedated on ativan drip no obvious gaze preference pupils 3 mm non reactive ?corneal does not withdraw to noxious or verbal stimuli occasional myoclonic jerks of both arms seen) Labs: CBC, BMP 12/04/16 05:05 12/04/16 05:05 Assessment/Plan 76 year old man with history of left craniotomy, subdural hemorrhage, seizure disorder, end stage renal disease on dialysis, diabetes, stroke, left lung collapse, presents to [facility] status post cardiac arrest. Patient was picked up by ambulette and en route to dialysis was noted to be unresponsive. The patient was found to be in cardiac arrest, coded, and brought to ED. In ED was given epinephrine, intubated and sedated, and hypothermic. Patient on hypothermia protocol. Not paralyzed. Since yesterday noted seizure like movements. Was previously on propofol with no improvement in symptoms. Now on ativan drip. Started by ICU team on keppra 500 mg bid, dilantin 100 mg TID without improvement. No head imaging or EEG complete. Exam significant for occasional myoclonic jerks of both arms Recommend CT head without contrast when able EEG (ordered) Already on keppra 500 mg BID (elevated cr), dilantin 100 TID Start depakote 750 mg x1 now, followed by 500 TID Check dilantin level in am Continue supportive care Will follow
--- NOTE | 2016-12-04 15:23 | PN ---
Progress Note, Physician History of Present Illness: seen and examined at bedside in ICU. was hypertensive yesterday then became hypertensive requiring levophed and dopamine which had been titrated off throughout the course of the day 2 extensive family meetings held with healthcare proxy who is son and patient's daughter in law - Current Medication List Current Medications: Active Medications Acetaminophen (Tylenol Suppository -) 650 mg [place] Q4H PRN PRN Reason: FEVER OR PAIN Artificial Tears (Artificial Tears) 1 drop OU QID PRN PRN Reason: DRY EYES Ceftriaxone Sodium (Rocephin 1gm Ivpb (Pre-Docked)) 1 gm IVPB DAILY [facility] Last Admin: 12/04/16 09:35 Dose: 1 gm Chlorhexidine Gluconate (Hibiclens For Decolonization -) 1 applic TP HS [facility] Last Admin: 12/03/16 21:27 Dose: 1 applic Dextrose (D50w (Vial) -) 50 ml IVPUSH Q1H PRN PRN Reason: for blood glucose <75 Heparin Sodium (Porcine) (Heparin -) 5,000 unit SQ TID [facility] Last Admin: 12/04/16 14:03 Dose: 5,000 unit Dopamine HCl/Dextrose (Dopamine 400 Mg/D5w -) 250 mls @ 10.206 mls/hr IVPB TITR [facility]; 5 MCG/KG/MIN PRN Reason: Protocol Last Titration: 12/04/16 09:12 Dose: 0 mcg/kg/min Pantoprazole Sodium (Protonix 40mg Ivpb (Pre-Docked)) 100 mls @ 100 mls/hr IVPB DAILY [facility] Last Admin: 12/04/16 10:35 Dose: 100 mls/hr Metronidazole (Flagyl 500mg Premixed Ivpb -) 100 mls @ 100 mls/hr IVPB Q8H-IV [facility] Last Admin: 12/04/16 10:35 Dose: 100 mls/hr Dextrose/Lactated Ringer's (D5-Lr -) 1,000 mls @ 100 mls/hr IV ASDIR [facility] Last Admin: 12/04/16 10:50 Dose: 100 mls/hr Norepinephrine Bitartrate 16, (000 mcg/ Dextrose) 500 mls @ 15 mls/hr IV TITR [facility]ERTO; 8 MCG/MIN PRN Reason: Protocol Last Titration: 12/04/16 10:00 Dose: 0 mcg/min Propofol (Diprivan -) 100 mls @ 1.638 mls/hr IVPB TITR [facility]; 5 MCG/KG/MIN PRN Reason: Protocol Last Titration: 12/04/16 14:21 Dose: 10 mcg/kg/min Lorazepam 40 mg/ Dextrose 120 mls @ 6 mls/hr IVPB TITR [facility]; 2 MG/HR PRN Reason: Protocol Insulin Aspart (Novolog Vial Sliding Scale -) 1 vial SQ Q4HPO [facility] PRN Reason: Protocol Last Admin: 12/04/16 13:38 Dose: Not Given Levetiracetam (Keppra Injection -) 500 mg IVPB BID [facility] Methylprednisolone Sodium Succinate (Solu-Medrol -) 40 mg IVPB Q8H-IV [facility] Last Admin: 12/04/16 10:14 Dose: 40 mg Mupirocin (Bactroban Ointment (For Decolonization) -) 1 applic NS BID [facility] Stop: 12/08/16 21:59 Last Admin: 12/04/16 10:51 Dose: 1 applic Phenytoin Sodium (Dilantin Injection -) 100 mg IVPB Q8H [facility] Last Admin: 12/04/16 08:33 Dose: 100 mg Valproate Sodium (Depacon Injection -) 500 mg IVPB Q6H [facility] Last Admin: 12/04/16 14:36 Dose: Not Given - Objective Vital Signs: Vital Signs Temperature 93.5 F L 12/04/16 13:00 Pulse Rate 65 12/04/16 13:00 Respiratory Rate 29 H 12/04/16 13:50 Blood Pressure 145/38 12/04/16 13:00 O2 Sat by Pulse Oximetry (%) 99 12/04/16 10:00 Eyes: Yes: Other (pinpoint pupils but reactive) Neck: Yes: Trachea Midline Cardiovascular: Yes: Regular Rate and Rhythm, Murmur (systolic murmur) Respiratory: Yes: Diminished, Intubated, Mechanically Ventilated, Poor Air Entry , Rhonchi Gastrointestinal: Yes: Soft Edema: No Labs: CBC, BMP 12/04/16 05:05 12/04/16 05:05 INR, PTT INR 1.22 (0.82-1.09) H 12/04/16 05:05 - ....Imaging Chest X-ray: Report Reviewed, Image Reviewed Assessment/Plan 76M with multiple medical problems presents to the ED s/p cardiac arrest. 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 and the length of time patient coded in ED it could be estimated to be about 20 minutes hypothermia protocol initiated will start rewarming at 6pm tonight ventilatory support ABG in AM ICU care off pressors restart PRN Neurochecks-patient spontaneously moving feet propofol and ativan gtt Trend troponins to document peak cardiology consult appreciated ECHO Femoral was supposed to come out today however family would like to keep it until tomorrow risks of infection explained patient is starting to have seizures on keppra dilantin and started depakote per neurology started ativan gtt and propofol gtt will need head CT when stable Hyperkalemia: resolved with dialysis trend BMP dialysis per renal Septic shock: PNA on CXR vs effusion though clinically PNA makes is more likely it is very possible patient aspirated prior to coming in or during intubation ID consult appreciated allergic to penicillin continue ceftriaxone and flagyl Solumedrol ESRD on HD: emergent dialysis Nephrology consult appreciated DM: BGM Q4h ISS HTN: hold antihypertensives at this time history of CVA: no issues at this time FEN: no IVF being dialyzed hyperkalemia--> dialysis NPO for now PPx: HSQ Protonix PT consult when appropriate Poor prognosis at this time CCTime 45min had an extensive discussion with family twice. explained poor prognosis family would like aggressive therapy to continue until patient rewarmed so mental status can be assessed
[2016-12-04] MEDS: DOPAMINE 400 MG/D5W - 250 ML IVPB SCH (15:59)
--- NOTE | 2016-12-04 17:29 | PN ---
Physical Exam: SUBJECTIVE: Patient seen and examined. He is twitching, he opens his eyes, no meaningful eye contact. 24 hr events: Hypotensive overnight, started on dopamine/levophed, now off Hypoglycemic overnight Seizure activity today + twitching OBJECTIVE: Vital Signs Period Temp Pulse Resp BP Sys/Vee Pulse Ox Last 24 Hr 91.1 F-96.7 F 46-88 12-35 83-205/38-101 99-100 PE Neuro: sedated Pulm: intubated, diminished HEENT: NGT, Pinpoint pupils CV: s1 s2 rrr no mrg Abd: s nt +bs Ext: no edema, R groin TLC cdi, L arm fistula + thrill CBCD WBC 10.6 K/mm3 (4.0-10.0) H 12/04/16 05:05 RBC 3.51 M/mm3 (4.00-5.60) L 12/04/16 05:05 Hgb 9.8 GM/dL (11.7-16.9) L 12/04/16 05:05 Hct 31.0 % (35.4-49) L 12/04/16 05:05 MCV 88.6 fl (80-96) 12/04/16 05:05 MCHC 31.7 g/dl (32.0-35.9) L 12/04/16 05:05 RDW 18.4 % (11.9-15.9) H 12/04/16 05:05 Plt Count 228 K/MM3 (134-434) 12/04/16 05:05 MPV 7.8 fl (7.5-11.1) 12/04/16 05:05 CMP Sodium 139 mmol/L (136-145) 12/04/16 05:05 Potassium 4.4 mmol/L (3.5-5.1) D 12/04/16 05:05 Chloride 100 mmol/L (98-107) 12/04/16 05:05 Carbon Dioxide 27 mmol/L (21-32) 12/04/16 05:05 Anion Gap 12 (8-16) 12/04/16 05:05 BUN 44 mg/dL (7-18) H 12/04/16 05:05 Creatinine 5.2 mg/dL (0.7-1.3) H 12/04/16 05:05 Creat Clearance w eGFR 10.87 (>60) 12/04/16 05:05 Random Glucose 252 mg/dL (74-106) H D 12/04/16 05:05 Calcium 7.4 mg/dL (8.5-10.1) L 12/04/16 05:05 Total Bilirubin 0.5 mg/dL (0.2-1.0) D 12/04/16 05:05 AST 61 U/L (15-37) H 12/04/16 05:05 ALT 42 U/L (12-78) 12/04/16 05:05 Alkaline Phosphatase 75 U/L (45-117) 12/04/16 05:05 Total Protein 6.5 g/dl (6.4-8.2) 12/04/16 05:05 Albumin 2.6 g/dl (3.4-5.0) L 12/04/16 05:05 CARDIAC ENZYMES Creatine Kinase 761 IU/L (39-308) H D 12/04/16 05:05 Troponin I 0.11 ng/ml (0.00-0.05) H 12/04/16 05:05 12/03/16 12/04/16 12/04/16 17:00 05:05 05:05 INR 1.22 H Lactic Acid 1.542 Random Vancomycin Hepatitis A Ab Total Pending Hep Bs Antigen Pending Hep Bs Antibody Pending Hep B Core Total Ab Pending Hepatitis C Antibody Pending 12/04/16 12:00 INR Lactic Acid Random Vancomycin 10.239 Hepatitis A Ab Total Hep Bs Antigen Hep Bs Antibody Hep B Core Total Ab Hepatitis C Antibody Active Medications Generic Name Dose Route Start Last Admin Trade Name Freq PRN Reason Stop Dose Admin Acetaminophen 650 mg 12/03/16 16:27 Tylenol Suppository - [place] Q4H PRN FEVER OR PAIN Artificial Tears 1 drop 12/04/16 15:07 12/04/16 11:46 Artificial Tears OU 1 drop QID PRN Administration DRY EYES Ceftriaxone Sodium 1 gm 12/03/16 17:30 12/04/16 09:35 Rocephin 1gm Ivpb (Pre-Docked) IVPB 1 gm DAILY [facility] Administration Chlorhexidine Gluconate 1 applic 12/03/16 22:00 12/03/16 21:27 Hibiclens For Decolonization - TP 1 applic HS [facility]ERTO Administration Dextrose 50 ml 12/04/16 15:08 12/04/16 14:00 D50w (Vial) - IVPUSH 50 ml Q1H PRN Administration for blood glucose <75 Heparin Sodium (Porcine) 5,000 unit 12/03/16 22:00 12/04/16 14:03 Heparin - SQ 5,000 unit TID LUIS ALBERTO Administration Dopamine HCl/Dextrose 250 mls @ 10.206 mls/hr 12/03/16 14:45 12/04/16 15:59 Dopamine 400 Mg/D5w - IVPB Not Given TITR LUIS ALBERTO Protocol 5 MCG/KG/MIN Pantoprazole Sodium 100 mls @ 100 mls/hr 12/03/16 16:45 12/04/16 10:35 Protonix 40mg Ivpb (Pre-Docked) IVPB 100 mls/hr DAILY [facility] Administration Metronidazole 100 mls @ 100 mls/hr 12/03/16 18:00 12/04/16 10:35 Flagyl 500mg Premixed Ivpb - IVPB 100 mls/hr Q8H-IV [facility] Administration Dextrose/Lactated Ringer's 1,000 mls @ 100 mls/hr 12/04/16 01:30 12/04/16 10:50 D5-Lr - IV 100 mls/hr ASDIR [facility] Administration Norepinephrine Bitartrate 16, 500 mls @ 15 mls/hr 12/04/16 02:45 12/04/16 10:00 000 mcg/ Dextrose IV 0 mcg/min TITR [facility] AL[facility]ERTO Titration Protocol 8 MCG/MIN Propofol 100 mls @ 1.638 mls/hr 12/04/16 14:00 12/04/16 14:21 Diprivan - IVPB 10 mcg/kg/min TITR [facility] ALBERTO Titration Protocol 5 MCG/KG/MIN Lorazepam 40 mg/ Dextrose 120 mls @ 6 mls/hr 12/04/16 14:45 12/04/16 13:30 IVPB 3 mg/hr TITR [facility] ALBERTO Titration Protocol 2 MG/HR Insulin Aspart 1 vial 12/03/16 18:00 12/04/16 13:38 Novolog Vial Sliding Scale - SQ Not Given Q4HPO [facility] ALBERTO Protocol Levetiracetam 500 mg 12/04/16 13:54 Keppra Injection - IVPB BID [facility]O Methylprednisolone Sodium Succinate 40 mg 12/03/16 18:00 12/04/16 10:14 Solu-Medrol - IVPB 40 mg Q8H-IV [facility]ERTO Administration Mupirocin 1 applic 12/03/16 22:00 12/04/16 10:51 Bactroban Ointment (For Decolonization) - NS 12/08/16 21:59 1 applic BID [facility]O Administration Phenytoin Sodium 100 mg 12/04/16 08:00 12/04/16 16:21 Dilantin Injection - IVPB 100 mg Q8H [facility]ERTO Administration Valproate Sodium 500 mg 12/04/16 14:00 12/04/16 14:36 Depacon Injection - IVPB Not Given Q6H [facility]ERTO Imaging: ECHO: revealed normal LV size and function, mild MR, mild to moderate TR with mild degree of pulmonary HTN, RVSP 30-40 mmHg Assessment: 76 year old man with history of left craniotomy, subdural hemorrhage , seizure disorder, ESRD on HD ([facility] DM II, CVA, left lung collapse admitted s /p cardiac arrest while enroute to HD in ambulette, coded, intubated, hypothermia protocol initiated, dialyzed in ICU. Plan: 1. Cardiac Arrest - Hypothermia blanket removed now - Rewarming initiated - EEG to eval for brain function - Pacer pads placed - EKG in AM 2. Acute respiratory failure - Intubated - Solumedrol 40mg q8h - Continue vent support 3. Septic shock - Off pressors at moment - Continue d5 LR 100cc/hr - Lactic acid wnl - Abx for aspiration pna 4. Aspiration PNA - Blood cultures pending - Continue ceftriaxone, flagyl - ID seeing 5. ESRD on HD - HD tomorrow 6. Hyperkalemia - Improved w/ HD 7. CAD with elevated trops - Likely demand ischemia from septic shock 8. Seizures - Ativan gtt initiated - Dilantin 100mg q8 - Valproate 750 mg x1, then 500mg q6 - Keppra 500mg BID (home meds) - Dilantin level in AM - Neuro input appreciated 9. DVT ppx - Heparin tid Dispo: - Family made aware poor prognosis, and infection risk for keeping femoral tlc, would like to keep in place CODE STATUS: FULL CODE Visit type - Emergency Visit Emergency Visit: Yes ED Registration Date: 12/03/16 Care time: The patient presented to the Emergency Department on the above date and was hospitalized for further evaluation of their emergent condition. - New Patient This patient is new to me today: Yes Date on this admission: 12/04/16 - Critical Care Critical Care patient: No
[2016-12-04] MEDS: CHLORHEXIDINE GLUCONATE 4% CLEANSER FOR DECOLONIZATION TP SCH (21:21)
[2016-12-04 23:06] LABS: CALCIUM 7.1 mg/dL (8.5-10.1); CREATININE 5.8 mg/dL (0.7-1.3)
[2016-12-04 23:10] LABS: TROPONIN I 0.1 ng/ml (0.00-0.05)
[2016-12-05] MEDS: PHENYTOIN SODIUM 100 MG/2 ML VIAL IVPB SCH ×3 (00:55→16:24)
[2016-12-05] MEDS: methylPREDNISolone NA SUCC 40 MG/1 ML VIAL IVPB SCH ×3 (02:32→17:03)
[2016-12-05] MEDS: METRONIDAZOLE 500 MG PREMIXED 100 ML IVPB SCH ×2 (02:32→09:02)
[2016-12-05] MEDS: VALPROATE SODIUM 500 MG/5 ML VIAL IVPB SCH ×4 (02:32→17:31)
[2016-12-05] MEDS: INSULIN SLIDING SCALE (NOVOLOG) 1 VIAL SQ SCH ×6 (02:34→21:00)
[2016-12-05] MEDS ORDERED: PT OWN MED DRAWER 7, Y5N ONE ×2 (02:38→16:50)
[2016-12-05] MEDS: NOREPINEPHRINE BITARTRATE 16,000 MCG in DEXTROSE 5%-WATER - 484 ML IV SCH (02:55)
[2016-12-05] MEDS: HEPARIN NA (PORCINE) 5,000 UNITS/ML 1ML VIAL SQ SCH ×3 (06:27→21:05)
[2016-12-05] MEDS: ARTIFICIAL TEARS (POLYVINYL ALCOHOL 1.4%) OPTH DROPS OU PRN (06:28)
[2016-12-05 06:59] LABS: BASOPHIL 0.5 % (0-2.0); MCHC 31.6 g/dl (32.0-35.9); MEAN CELL VOLUME 88.6 fl (80-96); MEAN PLT VOLUME 7.8 fl (7.5-11.1); NEUTROPHILS 88.3 % (42.8-82.8); PLATELET COUNT 213 K/MM3 (134-434); RDW 18.9 % (11.9-15.9)
[2016-12-05 07:40] LABS: ALBUMIN 2.1 g/dl (3.4-5.0); BILIRUBIN,TOTAL 0.5 mg/dL (0.2-1.0); CREATININE 6.2 mg/dL (0.7-1.3); MAGNESIUM 1.7 mg/dL (1.8-2.4); PHOSPHOROUS 6.6 mg/dL (2.5-4.9); TOT PROT 5.4 g/dl (6.4-8.2); TROPONIN I 0.11 ng/ml (0.00-0.05)
[2016-12-05 08:21] LABS: CALCIUM 6.6 mg/dL (8.5-10.1)
[2016-12-05] MEDS: PANTOPRAZOLE SODIUM 100 ML IVPB SCH (09:01)
[2016-12-05] MEDS: cefTRIAXone 1 GM/50 ML BAG (PRE-DOCKED) IVPB SCH (09:02)
[2016-12-05] MEDS: levETIRAcetam 500 MG/5 ML INJECTION VIAL IVPB SCH ×2 (09:02→21:06)
[2016-12-05] MEDS: MUPIROCIN 2% TOPICAL OINTMENT FOR DECOLONIZATION NS SCH ×2 (09:04→21:02)
--- NOTE | 2016-12-05 09:23 | PN ---
Progress Note, Physician History of Present Illness: Myoclonic jerks, remains unresponsive on vent, weaned off pressors. - Current Medication List Current Medications: Active Medications Acetaminophen (Tylenol Suppository -) 650 mg [place] Q4H PRN PRN Reason: FEVER OR PAIN Artificial Tears (Artificial Tears) 1 drop OU QID PRN PRN Reason: DRY EYES Last Admin: 12/05/16 06:28 Dose: 1 drop Ceftriaxone Sodium (Rocephin 1gm Ivpb (Pre-Docked)) 1 gm IVPB DAILY [facility] Last Admin: 12/05/16 09:02 Dose: 1 gm Chlorhexidine Gluconate (Hibiclens For Decolonization -) 1 applic TP HS [facility] Last Admin: 12/04/16 21:21 Dose: 1 applic Dextrose (D50w (Vial) -) 50 ml IVPUSH Q1H PRN PRN Reason: for blood glucose <75 Last Admin: 12/04/16 14:00 Dose: 50 ml Heparin Sodium (Porcine) (Heparin -) 5,000 unit SQ TID [facility] Last Admin: 12/05/16 06:27 Dose: 5,000 unit Dopamine HCl/Dextrose (Dopamine 400 Mg/D5w -) 250 mls @ 10.206 mls/hr IVPB TITR [facility] AL[facility]ERTO; 5 MCG/KG/MIN PRN Reason: Protocol Last Admin: 12/04/16 15:59 Dose: Not Given Pantoprazole Sodium (Protonix 40mg Ivpb (Pre-Docked)) 100 mls @ 100 mls/hr IVPB DAILY [facility] Last Admin: 12/05/16 09:01 Dose: 100 mls/hr Metronidazole (Flagyl 500mg Premixed Ivpb -) 100 mls @ 100 mls/hr IVPB Q8H-IV [facility] Last Admin: 12/05/16 09:02 Dose: 100 mls/hr Dextrose/Lactated Ringer's (D5-Lr -) 1,000 mls @ 100 mls/hr IV ASDIR [facility] Last Admin: 12/04/16 23:00 Dose: 100 mls/hr Norepinephrine Bitartrate 16, (000 mcg/ Dextrose) 500 mls @ 15 mls/hr IV TITR [facility] AL[facility]ERTO; 8 MCG/MIN PRN Reason: Protocol Last Admin: 12/05/16 02:55 Dose: Not Given Propofol (Diprivan -) 100 mls @ 1.638 mls/hr IVPB TITR [facility] ALBERTO; 5 MCG/KG/MIN PRN Reason: Protocol Last Titration: 12/04/16 14:21 Dose: 10 mcg/kg/min Lorazepam 40 mg/ Dextrose 120 mls @ 6 mls/hr IVPB TITR [facility] ALBERTO; 2 MG/HR PRN Reason: Protocol Last Titration: 12/04/16 13:30 Dose: 3 mg/hr Insulin Aspart (Novolog Vial Sliding Scale -) 1 vial SQ Q4HPO [facility]ERTO PRN Reason: Protocol Last Admin: 12/05/16 09:10 Dose: 2 units Levetiracetam (Keppra Injection -) 500 mg IVPB BID [facility] Last Admin: 12/05/16 09:02 Dose: 500 mg Methylprednisolone Sodium Succinate (Solu-Medrol -) 40 mg IVPB Q8H-IV [facility] Last Admin: 12/05/16 09:03 Dose: 40 mg Mupirocin (Bactroban Ointment (For Decolonization) -) 1 applic NS BID [facility] Stop: 12/08/16 21:59 Last Admin: 12/05/16 09:04 Dose: 1 applic Phenytoin Sodium (Dilantin Injection -) 100 mg IVPB Q8H [facility] Last Admin: 12/05/16 08:21 Dose: 100 mg Valproate Sodium (Depacon Injection -) 500 mg IVPB Q6H [facility] Last Admin: 12/05/16 08:20 Dose: 500 mg - Objective Vital Signs: Vital Signs Temperature 97.8 F 12/05/16 07:00 Pulse Rate 68 12/05/16 08:00 Respiratory Rate 14 12/05/16 08:00 Blood Pressure 156/55 12/05/16 08:00 O2 Sat by Pulse Oximetry (%) 100 12/05/16 02:00 Cardiovascular: Yes: Regular Rate and Rhythm Respiratory: Yes: Intubated, Mechanically Ventilated, Rhonchi Gastrointestinal: Yes: Normal Bowel Sounds, Soft Edema: No Labs: CBC, BMP 12/05/16 05:20 12/05/16 05:20 INR, PTT INR 1.22 (0.82-1.09) H 12/04/16 05:05 Problem List - Problems (1) Acute respiratory failure with hypoxia Code(s): J96.01 - ACUTE RESPIRATORY FAILURE WITH HYPOXIA (2) Aspiration pneumonia Code(s): J69.0 - PNEUMONITIS DUE TO INHALATION OF FOOD AND VOMIT Qualifiers: Aspiration pneumonia type: due to vomit Laterality: unspecified laterality (3) Cardiac arrest Code(s): I46.9 - CARDIAC ARREST, CAUSE UNSPECIFIED (4) Hyperkalemia, diminished renal excretion Code(s): E87.5 - HYPERKALEMIA (5) Lactic acidosis Code(s): E87.2 - ACIDOSIS (6) Pleural effusion, right Code(s): J90 - PLEURAL EFFUSION, NOT ELSEWHERE CLASSIFIED (7) Anemia in chronic kidney disease (CKD) Code(s): N18.9 - CHRONIC KIDNEY DISEASE, UNSPECIFIED D63.1 - ANEMIA IN CHRONIC KIDNEY DISEASE (8) End stage kidney disease Code(s): N18.6 - END STAGE RENAL DISEASE (9) Type 2 diabetes mellitus Code(s): E11.9 - TYPE 2 DIABETES MELLITUS WITHOUT COMPLICATIONS Qualifiers: Diabetes mellitus complication status: with kidney complications Chronic kidney disease stage: on chronic dialysis (10) CVA (cerebral vascular accident) Code(s): I63.9 - CEREBRAL INFARCTION, UNSPECIFIED Assessment/Plan Echocardiography revealed normal LV size and function, mild MR, mild to moderate TR with mild degree of pulmonary HTN, RVSP 30-40 mmHg 1. Acute hypoxemic respiratory failure referable to 2. Post asystolic arrest in context of 3. ESRD on HD with hyperkalemia since resolved 4. Resolved septic shock with lactic acidosis, referable to asp pneumonia 5. Probable anoxic encephalopathy, with seizure activity 6. CAD with evidence of demand ischemic injury 7. History of CVA 8. Hyperglycemia 9. Anemia PLAN: 1. Weaned off pressors 3. Empiric antibiotic course as per the primary team 4. Vent management and rewarming protocol as per the critical care team 5. Neurological evaluation appreciated, placed on antiepileptics 6. HD per renal 7. DVT and GI prophylaxis, wean sedation as tolerated
--- NOTE | 2016-12-05 10:42 | PN ---
Progress Note (short form) - Note Progress Note: Renal Follow up for ESRD on HD Pt seen and examined in the ICU sedated on the Vent Currently getting dialysis. BP stable. AVF with good function Goal UF is 2L pt continues to have facial twitches. ON Dilantin and Propofol Vital Signs Temperature 97.8 F 12/05/16 07:00 Pulse Rate 72 12/05/16 10:05 Respiratory Rate 20 12/05/16 10:05 Blood Pressure 160/56 12/05/16 10:05 O2 Sat by Pulse Oximetry (%) 100 12/05/16 09:57 Intake & Output 12/02/16 12/03/16 12/04/16 12/05/16 23:59 23:59 23:59 23:59 Intake Total 1277.9 3797 1036.4 Output Total 150 200 50 Balance 1127.9 3597 986.4 Weight 48 lb 120 lb 6.4 oz 121 lb 11.2 oz Gen: NAD, awake and alert HEENT: NC/AT, MMM, No JVD CVS: RRR, No M/R Lungs: CTA, Dec BS at lung bases Abd: soft NT/ND Ext: No edema, clubbing or cyanosis Neuro: Sedated, + facial twitches CBC, BMP 12/05/16 05:20 12/05/16 05:20 Laboratory Tests 12/05/16 05:20 Calcium 6.6 L* Phosphorus 6.6 H D Magnesium 1.7 L Albumin 2.1 L Current Medications Acetaminophen (Tylenol Suppository -) 650 mg [place] Q4H PRN PRN Reason: FEVER OR PAIN Artificial Tears (Artificial Tears) 1 drop OU QID PRN PRN Reason: DRY EYES Last Admin: 12/05/16 06:28 Dose: 1 drop Ceftriaxone Sodium (Rocephin 1gm Ivpb (Pre-Docked)) 1 gm IVPB DAILY [facility] Last Admin: 12/05/16 09:02 Dose: 1 gm Chlorhexidine Gluconate (Hibiclens For Decolonization -) 1 applic TP HS [facility] Last Admin: 12/04/16 21:21 Dose: 1 applic Dextrose (D50w (Vial) -) 50 ml IVPUSH Q1H PRN PRN Reason: for blood glucose <75 Last Admin: 12/04/16 14:00 Dose: 50 ml Heparin Sodium (Porcine) (Heparin -) 5,000 unit SQ TID [facility]ERTO Last Admin: 12/05/16 06:27 Dose: 5,000 unit Dopamine HCl/Dextrose (Dopamine 400 Mg/D5w -) 250 mls @ 10.206 mls/hr IVPB TITR [facility] ALBERTO; 5 MCG/KG/MIN PRN Reason: Protocol Last Admin: 12/04/16 15:59 Dose: Not Given Pantoprazole Sodium (Protonix 40mg Ivpb (Pre-Docked)) 100 mls @ 100 mls/hr IVPB DAILY [facility] Last Admin: 12/05/16 09:01 Dose: 100 mls/hr Metronidazole (Flagyl 500mg Premixed Ivpb -) 100 mls @ 100 mls/hr IVPB Q8H-IV [facility] Last Admin: 12/05/16 09:02 Dose: 100 mls/hr Dextrose/Lactated Ringer's (D5-Lr -) 1,000 mls @ 100 mls/hr IV ASDIR [facility] Last Admin: 12/04/16 23:00 Dose: 100 mls/hr Norepinephrine Bitartrate 16, (000 mcg/ Dextrose) 500 mls @ 15 mls/hr IV TITR [facility]IS ALBERTO; 8 MCG/MIN PRN Reason: Protocol Last Admin: 12/05/16 02:55 Dose: Not Given Propofol (Diprivan -) 100 mls @ 1.638 mls/hr IVPB TITR [facility] ALBERTO; 5 MCG/KG/MIN PRN Reason: Protocol Last Titration: 12/04/16 14:21 Dose: 10 mcg/kg/min Lorazepam 40 mg/ Dextrose 120 mls @ 6 mls/hr IVPB TITR [facility] ALBERTO; 2 MG/HR PRN Reason: Protocol Last Titration: 12/04/16 13:30 Dose: 3 mg/hr Insulin Aspart (Novolog Vial Sliding Scale -) 1 vial SQ Q4HPO [facility] ALBERTO PRN Reason: Protocol Last Admin: 12/05/16 09:10 Dose: 2 units Levetiracetam (Keppra Injection -) 500 mg IVPB BID [facility] Last Admin: 12/05/16 09:02 Dose: 500 mg Methylprednisolone Sodium Succinate (Solu-Medrol -) 40 mg IVPB Q8H-IV [facility] Last Admin: 12/05/16 09:03 Dose: 40 mg Mupirocin (Bactroban Ointment (For Decolonization) -) 1 applic NS BID [facility] Stop: 12/08/16 21:59 Last Admin: 12/05/16 09:04 Dose: 1 applic Phenytoin Sodium (Dilantin Injection -) 100 mg IVPB Q8H [facility] Last Admin: 12/05/16 08:21 Dose: 100 mg Valproate Sodium (Depacon Injection -) 500 mg IVPB Q6H [facility] Last Admin: 12/05/16 08:20 Dose: 500 mg A/P 76 year old Gentleman with PMhx of ESRD on HD (MWF), Anemia, CVA, Seizure disorder who presented unresponsive and found to have cardiac arrest. #ESRD on HD Pt tolerated HD today Goal UF is 2L will continue HD as needed UF based on fluid gains dose all meds for intermittent HD #Cardiac Arrest/Resp Failure/? Anoxic Brain injury/ Seizures continue Vent support and ICU care on Dilantin/Keppra/Propofol Neurology following hemodynamically stable at this time #Hypocalcemia/Hyperphosphtemia Corrected Ca is 8.2 Trend phos daily if remains elevated start renvela via NGT not currently getting fed #Anemia No acute indication for transfusion at this time Thank you Fernie Palmer DO
[2016-12-05] MEDS ORDERED: VALPROATE SODIUM 500 MG/5 ML VIAL IVPB ONE ×2 (11:30→16:39)
[2016-12-05] MEDS ORDERED: levETIRAcetam 500 MG/5 ML INJECTION VIAL IVPB ONE (11:45)
[2016-12-05] MEDS ORDERED: MAGNESIUM SULF 50% (8.12 MEQ/2 ML-1 GM VIAL) IVPB ONE (12:00)
--- NOTE | 2016-12-05 12:07 | PN ---
Progress Note (short form) - Note Progress Note: History of Present Illness: 76 year old man with history of left craniotomy, subdural hemorrhage, seizure disorder, end stage renal disease on dialysis, diabetes, stroke, left lung collapse, presents to [facility] status post cardiac arrest. Patient was picked up by ambulette and en route to dialysis was noted to be unresponsive. The patient was found to be in cardiac arrest, coded, and brought to ED. In ED was given epinephrine, intubated and sedated, and hypothermic. Patient was previously on hypothermia protocol. Not paralyzed. Since yesterday noted seizure like movements. Was previously on propofol with no improvement in symptoms. Today less shaking movements noted, some eye fluttering. Intubated and sedated on propofol drip. 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: CVA, Dementia Pulmonary: Yes: Previously Intubated Renal/: Yes: Renal Failure, Hemodialysis Endocrine: Yes: Diabetes Insipidus - Alcohol/Substance Use Hx Alcohol Use: No - Smoking History Smoking history: Former smoker Have you smoked in the past 12 months: No Aproximately how many cigarettes per day: 0 If you are a former smoker, when did you quit?: 1999 Home Medications - Allergies Allergies/Adverse Reactions: Allergies Allergy/AdvReac Type Severity Reaction Status Date / Time Penicillins Allergy Intermediate Rash Verified 12/03/16 13:33 - Home Medications Home Medications: Ambulatory Orders Unobtainable [Unobtainable] 12/03/16 Review of Systems Unable to obtain ROS, reason: mental status Physical Exam Neurological: Yes: Other (Intubated, sedated on propofol drip no obvious gaze preference pupils 3 mm non reactive ?corneal does not withdraw to noxious or verbal stimuli occasional eye fluttering seen) Assessment/Plan 76 year old man with history of left craniotomy, subdural hemorrhage, seizure disorder, end stage renal disease on dialysis, diabetes, stroke, left lung collapse, presents to [facility] status post cardiac arrest. Patient was picked up by ambulette and en route to dialysis was noted to be unresponsive. The patient was found to be in cardiac arrest, coded, and brought to ED. In ED was given epinephrine, intubated and sedated, and hypothermic. Off hypothermia protocol since yesterday. Intubated on propofol drip. Dilantin 100 TID, level corrected 15.2 Keppra 2 g BID Depakote 500 q6h, extra dose [address] head and EEG pending Family discussion ongoing regarding goals of care
--- NOTE | 2016-12-05 12:13 | PN ---
Progress Note, Physician History of Present Illness: Not responsive on ventilator Twitching of eyes noted by staff Afebrile WBC WNL BC no growth - Current Medication List Current Medications: Active Medications Acetaminophen (Tylenol Suppository -) 650 mg [place] Q4H PRN PRN Reason: FEVER OR PAIN Artificial Tears (Artificial Tears) 1 drop OU QID PRN PRN Reason: DRY EYES Last Admin: 12/05/16 06:28 Dose: 1 drop Ceftriaxone Sodium (Rocephin 1gm Ivpb (Pre-Docked)) 1 gm IVPB DAILY [facility] Last Admin: 12/05/16 09:02 Dose: 1 gm Chlorhexidine Gluconate (Hibiclens For Decolonization -) 1 applic TP HS [facility] Last Admin: 12/04/16 21:21 Dose: 1 applic Dextrose (D50w (Vial) -) 50 ml IVPUSH Q1H PRN PRN Reason: for blood glucose <75 Last Admin: 12/04/16 14:00 Dose: 50 ml Heparin Sodium (Porcine) (Heparin -) 5,000 unit SQ TID [facility] Last Admin: 12/05/16 06:27 Dose: 5,000 unit Dopamine HCl/Dextrose (Dopamine 400 Mg/D5w -) 250 mls @ 10.206 mls/hr IVPB TITR [facility]; 5 MCG/KG/MIN PRN Reason: Protocol Last Admin: 12/04/16 15:59 Dose: Not Given Pantoprazole Sodium (Protonix 40mg Ivpb (Pre-Docked)) 100 mls @ 100 mls/hr IVPB DAILY [facility] Last Admin: 12/05/16 09:01 Dose: 100 mls/hr Metronidazole (Flagyl 500mg Premixed Ivpb -) 100 mls @ 100 mls/hr IVPB Q8H-IV [facility] Last Admin: 12/05/16 09:02 Dose: 100 mls/hr Norepinephrine Bitartrate 16, (000 mcg/ Dextrose) 500 mls @ 15 mls/hr IV TITR [facility]; 8 MCG/MIN PRN Reason: Protocol Last Admin: 12/05/16 02:55 Dose: Not Given Propofol (Diprivan -) 100 mls @ 1.638 mls/hr IVPB TITR [facility]; 5 MCG/KG/MIN PRN Reason: Protocol Last Titration: 12/04/16 14:21 Dose: 10 mcg/kg/min Lorazepam 40 mg/ Dextrose 120 mls @ 6 mls/hr IVPB TITR [facility]; 2 MG/HR PRN Reason: Protocol Last Titration: 12/04/16 13:30 Dose: 3 mg/hr Insulin Aspart (Novolog Vial Sliding Scale -) 1 vial SQ Q4HPO [facility] PRN Reason: Protocol Last Admin: 12/05/16 09:10 Dose: 2 units Levetiracetam (Keppra Injection -) 2,000 mg IVPB BID [facility] Methylprednisolone Sodium Succinate (Solu-Medrol -) 40 mg IVPB Q8H-IV [facility] Last Admin: 12/05/16 09:03 Dose: 40 mg Mupirocin (Bactroban Ointment (For Decolonization) -) 1 applic NS BID [facility] Stop: 12/08/16 21:59 Last Admin: 12/05/16 09:04 Dose: 1 applic Phenytoin Sodium (Dilantin Injection -) 100 mg IVPB Q8H [facility] Last Admin: 12/05/16 08:21 Dose: 100 mg Valproate Sodium (Depacon Injection -) 500 mg IVPB Q6H [facility] Last Admin: 12/05/16 08:20 Dose: 500 mg - Objective Vital Signs: Vital Signs Temperature 98.9 F 12/05/16 10:00 Pulse Rate 70 12/05/16 12:00 Respiratory Rate 14 12/05/16 12:00 Blood Pressure 171/56 12/05/16 12:00 O2 Sat by Pulse Oximetry (%) 100 12/05/16 09:57 Constitutional: Yes: No Distress Eyes: Yes: Conjunctiva Clear Cardiovascular: Yes: Regular Rate and Rhythm, S1, S2 Respiratory: Yes: Mechanically Ventilated Gastrointestinal: Yes: Normal Bowel Sounds, Soft. No: Tenderness Edema: No Labs: CBC, BMP 12/05/16 05:20 12/05/16 05:20 INR, PTT INR 1.22 (0.82-1.09) H 12/04/16 05:05 Assessment/Plan S/P cardiopulmonary arrest Respiratory failure Probable aspiration R pneumonia Possible sepsis/ septic shock secondary to pneumonia ESRD PCN allergy lactic acidosis Await c/s Continue empiric ceftriaxone Will D/C flagyl in light of twitching ventilatory/ hemodynamic support Prognosis guarded
--- NOTE | 2016-12-05 12:17 | PN ---
Teaching Attending Note Name of Resident: Tato Fields ATTENDING PHYSICIAN STATEMENT I saw and evaluated the patient. I reviewed the resident's note and discussed the case with the resident. I agree with the resident's findings and plan as documented. SUBJECTIVE: Pt seen and examined in the ICU. Remains intubated, sedated on propofol and ativan gtts. Still some seizure like activity with eye lids. Not on pressors. OBJECTIVE: Last Vital Signs Temp Pulse Resp BP Pulse Ox 98.9 F 70 14 171/56 100 12/05/16 10:00 12/05/16 12:00 12/05/16 12:00 12/05/16 12:00 12/05/16 09:57 Intake & Output 12/02/16 12/03/16 12/04/16 12/05/16 23:59 23:59 23:59 23:59 Intake Total 1277.9 3797 1036.4 Output Total 150 200 50 Balance 1127.9 3597 986.4 Weight 48 lb 120 lb 6.4 oz 121 lb 11.2 oz Gen: intubated, sedated Heart: RRR Lung: decreased breath sounds at the bases Abd: soft, nontender Ext: trace edema CBC, BMP 12/05/16 05:20 12/05/16 05:20 Active Medications Acetaminophen (Tylenol Suppository -) 650 mg [place] Q4H PRN PRN Reason: FEVER OR PAIN Artificial Tears (Artificial Tears) 1 drop OU QID PRN PRN Reason: DRY EYES Last Admin: 12/05/16 06:28 Dose: 1 drop Ceftriaxone Sodium (Rocephin 1gm Ivpb (Pre-Docked)) 1 gm IVPB DAILY [facility] Last Admin: 12/05/16 09:02 Dose: 1 gm Chlorhexidine Gluconate (Hibiclens For Decolonization -) 1 applic TP HS [facility] Last Admin: 12/04/16 21:21 Dose: 1 applic Dextrose (D50w (Vial) -) 50 ml IVPUSH Q1H PRN PRN Reason: for blood glucose <75 Last Admin: 12/04/16 14:00 Dose: 50 ml Heparin Sodium (Porcine) (Heparin -) 5,000 unit SQ TID [facility] Last Admin: 12/05/16 06:27 Dose: 5,000 unit Dopamine HCl/Dextrose (Dopamine 400 Mg/D5w -) 250 mls @ 10.206 mls/hr IVPB TITR [facility]; 5 MCG/KG/MIN PRN Reason: Protocol Last Admin: 12/04/16 15:59 Dose: Not Given Pantoprazole Sodium (Protonix 40mg Ivpb (Pre-Docked)) 100 mls @ 100 mls/hr IVPB DAILY [facility] Last Admin: 12/05/16 09:01 Dose: 100 mls/hr Norepinephrine Bitartrate 16, (000 mcg/ Dextrose) 500 mls @ 15 mls/hr IV TITR [facility]; 8 MCG/MIN PRN Reason: Protocol Last Admin: 12/05/16 02:55 Dose: Not Given Propofol (Diprivan -) 100 mls @ 1.638 mls/hr IVPB TITR [facility]; 5 MCG/KG/MIN PRN Reason: Protocol Last Titration: 12/04/16 14:21 Dose: 10 mcg/kg/min Lorazepam 40 mg/ Dextrose 120 mls @ 6 mls/hr IVPB TITR [facility]; 2 MG/HR PRN Reason: Protocol Last Titration: 12/04/16 13:30 Dose: 3 mg/hr Insulin Aspart (Novolog Vial Sliding Scale -) 1 vial SQ Q4HPO [facility] PRN Reason: Protocol Last Admin: 12/05/16 09:10 Dose: 2 units Levetiracetam (Keppra Injection -) 2,000 mg IVPB BID [facility] Methylprednisolone Sodium Succinate (Solu-Medrol -) 40 mg IVPB Q8H-IV [facility] Last Admin: 12/05/16 09:03 Dose: 40 mg Mupirocin (Bactroban Ointment (For Decolonization) -) 1 applic NS BID [facility] Stop: 12/08/16 21:59 Last Admin: 12/05/16 09:04 Dose: 1 applic Phenytoin Sodium (Dilantin Injection -) 100 mg IVPB Q8H [facility] Last Admin: 12/05/16 08:21 Dose: 100 mg Valproate Sodium (Depacon Injection -) 500 mg IVPB Q6H [facility] Last Admin: 12/05/16 08:20 Dose: 500 mg ASSESSMENT AND PLAN: s/p Asystolic Cardiac Arrest Acute Hypoxic Respiratory Failure Likely Anoxic Encephalopathy Seizures - r/o Status Epilepticus Hyperkalemia resolved ESRD on HD r/o Pneumonia Septic vs Cardiogenic Shock h/o CVA CAD - increase propofol for seizure activity - continue antiepileptics - keppra, dilantin, depakote - maintain ativan gtt - neuro f/u - HD per renal - continue empiric antibiotics - f/u cultures - monitor and replete lytes - taper Fio2 to keep SpO2 >90% - DVT/GI prophylaxis - continue discussions regarding goals of care and advanced directives as poor prognosis for meaningful recovery
[2016-12-05 12:22] LABS: ALLENS TEST POSITIVE; ARTERIAL BLD GAS O2 SATURATION 97.4 % (90-98.9); ARTERIAL BLOOD GAS BASE EXCESS 3.8 meq/l (-2-2); ARTERIAL BLOOD GAS HCO3 28.5 meq/L (22-26)
[2016-12-05 12:23] LABS: ART PUNCT SITE RIGHT RADIAL; LPM/O2% 40%; MECH. VENT. YES; PT. ON O2? YES; TYPE OF O2 MECHANICAL VENT; VENT RATE 14; VT/PRESS 475 ML
[2016-12-05] MEDS: LORAZEPAM 40 MG in DEXTROSE 5%-WATER - 100 ML IVPB SCH (14:02)
[2016-12-05] MEDS: PROPOFOL 100 ML IVPB SCH (14:04)
--- NOTE | 2016-12-05 15:16 | PN ---
Progress Note, Physician History of Present Illness: seen and examined at bedside in ICU. rewarmed overnight to an appropriate temperature - Current Medication List Current Medications: Active Medications Acetaminophen (Tylenol Suppository -) 650 mg [place] Q4H PRN PRN Reason: FEVER OR PAIN Artificial Tears (Artificial Tears) 1 drop OU QID PRN PRN Reason: DRY EYES Last Admin: 12/05/16 06:28 Dose: 1 drop Ceftriaxone Sodium (Rocephin 1gm Ivpb (Pre-Docked)) 1 gm IVPB DAILY [facility] Last Admin: 12/05/16 09:02 Dose: 1 gm Chlorhexidine Gluconate (Hibiclens For Decolonization -) 1 applic TP HS [facility] Last Admin: 12/04/16 21:21 Dose: 1 applic Dextrose (D50w (Vial) -) 50 ml IVPUSH Q1H PRN PRN Reason: for blood glucose <75 Last Admin: 12/04/16 14:00 Dose: 50 ml Heparin Sodium (Porcine) (Heparin -) 5,000 unit SQ TID [facility] Last Admin: 12/05/16 14:06 Dose: 5,000 unit Dopamine HCl/Dextrose (Dopamine 400 Mg/D5w -) 250 mls @ 10.206 mls/hr IVPB TITR [facility]; 5 MCG/KG/MIN PRN Reason: Protocol Last Admin: 12/04/16 15:59 Dose: Not Given Pantoprazole Sodium (Protonix 40mg Ivpb (Pre-Docked)) 100 mls @ 100 mls/hr IVPB DAILY [facility] Last Admin: 12/05/16 09:01 Dose: 100 mls/hr Norepinephrine Bitartrate 16, (000 mcg/ Dextrose) 500 mls @ 15 mls/hr IV TITR [facility]; 8 MCG/MIN PRN Reason: Protocol Last Admin: 12/05/16 02:55 Dose: Not Given Propofol (Diprivan -) 100 mls @ 1.638 mls/hr IVPB TITR [facility]; 5 MCG/KG/MIN PRN Reason: Protocol Last Admin: 12/05/16 14:04 Dose: 8.192 mls/hr Lorazepam 40 mg/ Dextrose 120 mls @ 6 mls/hr IVPB TITR [facility]; 2 MG/HR PRN Reason: Protocol Last Admin: 12/05/16 14:02 Dose: 9 mls/hr Insulin Aspart (Novolog Vial Sliding Scale -) 1 vial SQ Q4HPO [facility] PRN Reason: Protocol Last Admin: 12/05/16 14:12 Dose: 2 units Levetiracetam (Keppra Injection -) 2,000 mg IVPB BID [facility] Methylprednisolone Sodium Succinate (Solu-Medrol -) 40 mg IVPB Q8H-IV [facility] Last Admin: 12/05/16 09:03 Dose: 40 mg Mupirocin (Bactroban Ointment (For Decolonization) -) 1 applic NS BID [facility] Stop: 12/08/16 21:59 Last Admin: 12/05/16 09:04 Dose: 1 applic Phenytoin Sodium (Dilantin Injection -) 100 mg IVPB Q8H [facility] Last Admin: 12/05/16 08:21 Dose: 100 mg Valproate Sodium (Depacon Injection -) 500 mg IVPB Q6H [facility] Last Admin: 12/05/16 14:02 Dose: Not Given - Objective Vital Signs: Vital Signs Temperature 99.5 F 12/05/16 14:00 Pulse Rate 68 12/05/16 14:00 Respiratory Rate 15 12/05/16 14:13 Blood Pressure 177/58 12/05/16 14:00 O2 Sat by Pulse Oximetry (%) 100 12/05/16 09:57 Eyes: Yes: Other (pinpoint pupils but reactive and sluggish) Neck: Yes: Trachea Midline Cardiovascular: Yes: Regular Rate and Rhythm, Murmur (systolic murmur) Respiratory: Yes: Diminished, Intubated, Mechanically Ventilated, Poor Air Entry , Rhonchi Gastrointestinal: Yes: Soft Neuro: unable to assess cranial reflexes as patient is seizing and having jerkey movements of his face and eyes Edema: No Labs: CBC, BMP 12/05/16 05:20 12/05/16 05:20 INR, PTT INR 1.22 (0.82-1.09) H 12/04/16 05:05 Assessment/Plan 76M with multiple medical problems presents to the ED s/p cardiac arrest. 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 and the length of time patient coded in ED it could be estimated to be about 20 minutes hypothermia protocol was iniated now rewarmed ventilatory support ABG in AM ICU care off pressors Neurochecks propofol and ativan gtt will increase propofol gtt as patient is still seizing on ativan and propofol continue keppra dilantin and depakon and increase per neurology cardiology consult appreciated ECHO noted Femoral was supposed to come out today however again the family would like to keep it for now risks of infection explained will need head CT when stable Hyperkalemia: resolved with dialysis trend BMP dialysis per renal Septic shock: PNA on CXR vs effusion though clinically PNA makes is more likely it is very possible patient aspirated prior to coming in or during intubation ID consult appreciated allergic to penicillin continue ceftriaxone stop flagyl Solumedrol ESRD on HD: dialyzed today Nephrology consult appreciated DM: BGM Q4h ISS HTN: hold antihypertensives at this time - will consider restarting some of his BP meds as patient is becoming hypertensive history of CVA: no issues at this time FEN: no IVF being dialyzed replete magnesium/dialysis NPO for now PPx: HSQ Protonix PT consult when appropriate Poor prognosis at this time. with a very poor chance at any meaningful recovery family under impression patient getting better they will need to be educated will get palliative care to discuss goals of care with family Alma Delia VEGA notified CCTime 45min
[2016-12-05] MEDS: DOPAMINE 400 MG/D5W - 250 ML IVPB SCH (16:21)
[2016-12-05] MEDS ORDERED: FOSPHENYTOIN SODIUM 100 MG/2 ML VIAL IVPUSH ONE (16:40)
--- NOTE | 2016-12-05 19:07 | PN ---
Physical Exam: SUBJECTIVE: Patient seen and examined. Intubated, sedated. No twitching noted OBJECTIVE: Vital Signs Period Temp Pulse Resp BP Sys/Vee Pulse Ox Last 24 Hr 95.7 F-99.5 F 63-84 14-29 112-187/37-75 100-100 PE Neuro: sedated Pulm: intubated, diminished HEENT: NGT, Pinpoint pupils CV: s1 s2 rrr Abd: s nt +bs Ext: no edema, R groin TLC cdi, L arm fistula + thrill Laboratory Results - last 24 hr 12/04/16 12/05/16 12/05/16 22:00 02:28 05:20 WBC 10.0 RBC 2.98 L Hgb 8.3 L D Hct 26.4 L MCV 88.6 MCHC 31.6 L RDW 18.9 H Plt Count 213 MPV 7.8 Neutrophils % 88.3 H D Lymphocytes % 5.2 L D Monocytes % 6.0 Eosinophils % 0.0 D Basophils % 0.5 Anticoagulation Therapy Puncture Site ABG pH ABG pCO2 at Pt Temp ABG pO2 at Pt Temp ABG HCO3 ABG O2 Sat (Measured) ABG O2 Content ABG Base Excess Paul Test O2 Delivery Device Oxygen Flow Rate Vent Mode Vent Rate Mechanical Rate PEEP Pressure Support Vent Sodium Potassium Chloride Carbon Dioxide Anion Gap BUN Creatinine Creat Clearance w eGFR POC Glucometer [id number] Random Glucose Calcium Phosphorus Magnesium Total Bilirubin AST ALT Alkaline Phosphatase Creatine Kinase Creatine Kinase Index CK-MB (CK-2) CK-MB (CK-2) Rel Index Cancelled Troponin I Total Protein Albumin Free T3 Phenytoin Hepatitis C Antibody 12/05/16 12/05/16 12/05/16 05:20 05:20 05:20 WBC RBC Hgb Hct MCV MCHC RDW Plt Count MPV Neutrophils % Lymphocytes % Monocytes % Eosinophils % Basophils % Anticoagulation Therapy Puncture Site ABG pH ABG pCO2 at Pt Temp ABG pO2 at Pt Temp ABG HCO3 ABG O2 Sat (Measured) ABG O2 Content ABG Base Excess Paul Test O2 Delivery Device Oxygen Flow Rate Vent Mode Vent Rate Mechanical Rate PEEP Pressure Support Vent Sodium 139 Potassium 4.5 Chloride 101 Carbon Dioxide 23 Anion Gap 15 BUN 61 H Creatinine 6.2 H Creat Clearance w eGFR 8.87 POC Glucometer Random Glucose 138 H Calcium 6.6 L* Phosphorus 6.6 H D Magnesium 1.7 L Total Bilirubin 0.5 AST 64 H ALT 34 Alkaline Phosphatase 62 Creatine Kinase 675 H Creatine Kinase Index CK-MB (CK-2) 10.6 H CK-MB (CK-2) Rel Index Cancelled Troponin I 0.11 H Total Protein 5.4 L Albumin 2.1 L Free T3 Phenytoin 4.7 L Hepatitis C Antibody Active Medications Generic Name Dose Route Start Last Admin Trade Name Freq PRN Reason Stop Dose Admin Acetaminophen 650 mg 12/03/16 16:27 Tylenol Suppository - [place] Q4H PRN FEVER OR PAIN Artificial Tears 1 drop 12/04/16 15:07 12/05/16 06:28 Artificial Tears OU 1 drop QID PRN Administration DRY EYES Ceftriaxone Sodium 1 gm 12/03/16 17:30 12/05/16 09:02 Rocephin 1gm Ivpb (Pre-Docked) IVPB 1 gm DAILY [facility] Administration Chlorhexidine Gluconate 1 applic 12/03/16 22:00 12/04/16 21:21 Hibiclens For Decolonization - TP 1 applic HS [facility] Administration Dextrose 50 ml 12/04/16 15:08 12/04/16 14:00 D50w (Vial) - IVPUSH 50 ml Q1H PRN Administration for blood glucose <75 Heparin Sodium (Porcine) 5,000 unit 12/03/16 22:00 12/05/16 14:06 Heparin - SQ 5,000 unit TID [facility] Administration Dopamine HCl/Dextrose 250 mls @ 10.206 mls/hr 12/03/16 14:45 12/05/16 16:21 Dopamine 400 Mg/D5w - IVPB Not Given TITR [facility] Protocol 5 MCG/KG/MIN Pantoprazole Sodium 100 mls @ 100 mls/hr 12/03/16 16:45 12/05/16 09:01 Protonix 40mg Ivpb (Pre-Docked) IVPB 100 mls/hr DAILY [facility] Administration Norepinephrine Bitartrate 16, 500 mls @ 15 mls/hr 12/04/16 02:45 12/05/16 02:55 000 mcg/ Dextrose IV Not Given TITR [facility] Protocol 8 MCG/MIN Propofol 100 mls @ 1.638 mls/hr 12/04/16 14:00 12/05/16 14:04 Diprivan - IVPB 8.192 mls/hr TITR [facility] Administration Protocol 5 MCG/KG/MIN Lorazepam 40 mg/ Dextrose 120 mls @ 6 mls/hr 12/04/16 14:45 12/05/16 14:02 IVPB 9 mls/hr TITR [facility] Administration Protocol 2 MG/HR Insulin Aspart 1 vial 12/03/16 18:00 12/05/16 17:03 Novolog Vial Sliding Scale - SQ 4 units Q4HPO [facility] Administration Protocol Levetiracetam 2,000 mg 12/05/16 22:00 Keppra Injection - IVPB BID [facility] Methylprednisolone Sodium Succinate 40 mg 12/03/16 18:00 12/05/16 17:03 Solu-Medrol - IVPB 40 mg Q8H-IV [facility] Administration Mupirocin 1 applic 12/03/16 22:00 12/05/16 09:04 Bactroban Ointment (For Decolonization) - NS 12/08/16 21:59 1 applic BID [facility] Administration Phenytoin Sodium 100 mg 12/04/16 08:00 12/05/16 16:24 Dilantin Injection - IVPB 100 mg Q8H [facility] Administration Valproate Sodium 750 mg 12/05/16 18:00 12/05/16 17:31 Depacon Injection - IVPB Not Given Q6H [facility] Imaging: ECHO: revealed normal LV size and function, mild MR, mild to moderate TR with mild degree of pulmonary HTN, RVSP 30-40 mmHg Assessment: 76 year old man with history of left craniotomy, subdural hemorrhage , seizure disorder, ESRD on HD ([facility]), DM II, CVA, left lung collapse admitted s /p cardiac arrest while enroute to HD in ambulette, coded, intubated, hypothermia protocol initiated, dialyzed in ICU. Plan: 1. Cardiac Arrest - Rewarmed - No change in MS, maintained on propofol for seizure activity - ECHO 12/05: LV size/fxn normal, mild MR, mild to moderate TR with mild degree of pulmonary HTN, RVSP 30-40 mmHg 2. Acute respiratory failure - Intubated - Solumedrol 40mg q8h - Continue vent support - Wean fio2 for spo2 >90% 3. Septic shock, cardiogenic d/t seizure? aspiration pna? - Off pressors at moment - Lactic acid wnl - Hypertensive, hold BP meds as of now, stop fluids 4. Aspiration PNA - CXR w/ no discernable infiltrate, R pleural effusion - Blood cultures no growth - Continue ceftriaxone - Stop flagyl per ID 5. ESRD on HD - HD today 6. Hyperkalemia - Improved w/ HD 7. CAD with elevated trops - Likely demand ischemia from septic shock 8. Seizures - EEG today - Ativan gtt - Dilantin 100mg q8 - Valproate then 500mg q6 - Increase Keppra 2gm BID 9. DVT ppx - Heparin tid Dispo: - Family made aware poor prognosis, and infection risk for keeping femoral tlc, would like to keep in place CODE STATUS: FULL CODE Visit type - Emergency Visit Emergency Visit: Yes ED Registration Date: 12/03/16 Care time: The patient presented to the Emergency Department on the above date and was hospitalized for further evaluation of their emergent condition. - New Patient This patient is new to me today: No - Critical Care Critical Care patient: No
[2016-12-05] MEDS: FOSPHENYTOIN SODIUM 100 MG/2 ML VIAL IVPB SCH (19:30)
[2016-12-05] MEDS: CHLORHEXIDINE GLUCONATE 4% CLEANSER FOR DECOLONIZATION TP SCH (21:07)
[2016-12-06 00:06] LABS: HEP B SURFACE AB Reactive (.)
[2016-12-06] MEDS: methylPREDNISolone NA SUCC 40 MG/1 ML VIAL IVPB SCH ×3 (02:00→18:06)
[2016-12-06] MEDS: INSULIN SLIDING SCALE (NOVOLOG) 1 VIAL SQ SCH ×6 (02:00→21:18)
[2016-12-06] MEDS ORDERED: PT OWN MED DRAWER 7, Y5N ONE ×4 (05:47→20:53)
[2016-12-06] MEDS: NOREPINEPHRINE BITARTRATE 16,000 MCG in DEXTROSE 5%-WATER - 484 ML IV SCH (06:00)
[2016-12-06] MEDS: VALPROATE SODIUM 500 MG/5 ML VIAL IVPB SCH ×4 (06:00→21:16)
[2016-12-06] MEDS: HEPARIN NA (PORCINE) 5,000 UNITS/ML 1ML VIAL SQ SCH ×3 (06:06→21:18)
[2016-12-06 06:50] LABS: MCH 27.7 pg (25.7-33.7); MCHC 31.1 g/dl (32.0-35.9); MEAN PLT VOLUME 8.1 fl (7.5-11.1); PLATELET COUNT 208 K/MM3 (134-434); RDW 19.2 % (11.9-15.9); WHITE BLOOD COUNT 6.1 K/mm3 (4.0-10.0)
[2016-12-06 07:19] LABS: ALBUMIN 2.1 g/dl (3.4-5.0); CREATININE 4.7 mg/dL (0.7-1.3); MAGNESIUM 2.2 mg/dL (1.8-2.4)
[2016-12-06 07:21] LABS: BILIRUBIN,TOTAL 0.3 mg/dL (0.2-1.0); TOT PROT 5.3 g/dl (6.4-8.2)
[2016-12-06 07:26] LABS: TROPONIN I 0.11 ng/ml (0.00-0.05)
[2016-12-06 07:27] LABS: CALCIUM 6.5 mg/dL (8.5-10.1)
[2016-12-06 07:40] LABS: ARTERIAL BLOOD GAS BASE EXCESS -1.6 meq/l (-2-2); ARTERIAL BLOOD GAS HCO3 22.4 meq/L (22-26); ARTERIAL BLOOD GAS PO2 99.8 mmHg (70-100)
[2016-12-06 07:41] LABS: ALLENS TEST POSITIVE; ART PUNCT SITE RIGHT RADIAL; LPM/O2% 40; MECH. VENT. YES; PT. ON O2? YES; TYPE OF O2 VENT
[2016-12-06 07:42] LABS: VENT RATE 14; VT/PRESS 475
[2016-12-06] MEDS: FOSPHENYTOIN SODIUM 100 MG/2 ML VIAL IVPB SCH ×2 (07:54→21:16)
[2016-12-06] MEDS: PHENYTOIN SODIUM 100 MG/2 ML VIAL IVPB SCH ×3 (07:54→16:19)
[2016-12-06] MEDS: LORAZEPAM 40 MG in DEXTROSE 5%-WATER - 100 ML IVPB SCH (09:00)
[2016-12-06] MEDS: MUPIROCIN 2% TOPICAL OINTMENT FOR DECOLONIZATION NS SCH ×2 (09:18→21:17)
[2016-12-06] MEDS: levETIRAcetam 500 MG/5 ML INJECTION VIAL IVPB SCH ×2 (09:18→21:18)
[2016-12-06] MEDS: PANTOPRAZOLE SODIUM 100 ML IVPB SCH (09:18)
[2016-12-06] MEDS: cefTRIAXone 1 GM/50 ML BAG (PRE-DOCKED) IVPB SCH (09:18)
[2016-12-06] MEDS ORDERED: HEMOQUE TEST 1 EACH EACH ONE (09:22)
--- NOTE | 2016-12-06 10:14 | PN ---
Progress Note, Physician History of Present Illness: Unresponsive on ventilator No twitching reported Low grade temp CXR shows decreased R sided infiltrate - Current Medication List Current Medications: Active Medications Acetaminophen (Tylenol Suppository -) 650 mg [place] Q4H PRN PRN Reason: FEVER OR PAIN Artificial Tears (Artificial Tears) 1 drop OU QID PRN PRN Reason: DRY EYES Last Admin: 12/05/16 06:28 Dose: 1 drop Ceftriaxone Sodium (Rocephin 1gm Ivpb (Pre-Docked)) 1 gm IVPB DAILY [facility] Last Admin: 12/06/16 09:18 Dose: 1 gm Chlorhexidine Gluconate (Hibiclens For Decolonization -) 1 applic TP HS [facility] Last Admin: 12/05/16 21:07 Dose: 1 applic Dextrose (D50w (Vial) -) 50 ml IVPUSH Q1H PRN PRN Reason: for blood glucose <75 Last Admin: 12/04/16 14:00 Dose: 50 ml Fosphenytoin Sodium (Cerebyx -) 300 mg IVPB Q12H [facility] Last Admin: 12/06/16 07:54 Dose: 300 mg Heparin Sodium (Porcine) (Heparin -) 5,000 unit SQ TID [facility] Last Admin: 12/06/16 06:06 Dose: 5,000 unit Pantoprazole Sodium (Protonix 40mg Ivpb (Pre-Docked)) 100 mls @ 100 mls/hr IVPB DAILY [facility] Last Admin: 12/06/16 09:18 Dose: 100 mls/hr Propofol (Diprivan -) 100 mls @ 1.638 mls/hr IVPB TITR [facility]; 5 MCG/KG/MIN PRN Reason: Protocol Last Admin: 12/05/16 14:04 Dose: 8.192 mls/hr Lorazepam 40 mg/ Dextrose 120 mls @ 6 mls/hr IVPB TITR [facility]; 2 MG/HR PRN Reason: Protocol Last Admin: 12/05/16 14:02 Dose: 9 mls/hr Insulin Aspart (Novolog Vial Sliding Scale -) 1 vial SQ Q4HPO [facility] PRN Reason: Protocol Last Admin: 12/06/16 09:31 Dose: 2 units Levetiracetam (Keppra Injection -) 2,000 mg IVPB BID [facility] Last Admin: 12/06/16 09:18 Dose: 2,000 mg Methylprednisolone Sodium Succinate (Solu-Medrol -) 40 mg IVPB Q8H-IV [facility] Last Admin: 12/06/16 09:18 Dose: 40 mg Mupirocin (Bactroban Ointment (For Decolonization) -) 1 applic NS BID [facility] Stop: 12/08/16 21:59 Last Admin: 12/06/16 09:18 Dose: 1 applic Phenytoin Sodium (Dilantin Injection -) 100 mg IVPB Q8H [facility] Last Admin: 12/06/16 07:54 Dose: 100 mg Valproate Sodium (Depacon Injection -) 750 mg IVPB Q6H [facility] Last Admin: 12/06/16 06:00 Dose: 750 mg - Objective Vital Signs: Vital Signs Temperature 98 F 12/06/16 02:00 Pulse Rate 66 12/06/16 06:00 Respiratory Rate 14 12/06/16 06:35 Blood Pressure 158/56 12/06/16 06:00 O2 Sat by Pulse Oximetry (%) 100 12/05/16 20:43 Constitutional: Yes: No Distress Eyes: Yes: Conjunctiva Clear Cardiovascular: Yes: Regular Rate and Rhythm, S1, S2 Respiratory: Yes: Mechanically Ventilated Gastrointestinal: Yes: Normal Bowel Sounds, Soft. No: Tenderness Edema: No Labs: CBC, BMP 12/06/16 05:30 12/06/16 05:30 INR, PTT INR 1.22 (0.82-1.09) H 12/04/16 05:05 Assessment/Plan S/P cardiopulmonary arrest Respiratory failure Probable aspiration R pneumonia Possible sepsis/ septic shock secondary to pneumonia ESRD PCN allergy lactic acidosis Continue empiric ceftriaxone ventilatory/ hemodynamic support Prognosis guarded
--- NOTE | 2016-12-06 10:51 | PN ---
Teaching Attending Note Name of Resident: Tato Fields ATTENDING PHYSICIAN STATEMENT I saw and evaluated the patient. I reviewed the resident's note and discussed the case with the resident. I agree with the resident's findings and plan as documented. SUBJECTIVE: Patient seen and examined in the ICU. Remains intubated on propofol/ativan. AC mode of vent. Intake & Output 12/03/16 12/04/16 12/05/16 12/06/16 23:59 23:59 23:59 23:59 Intake Total 1277.9 3797 2408.0 Output Total 150 200 250 0 Balance 1127.9 3597 2158.0 0 Weight 48 lb 120 lb 6.4 oz 121 lb 11.2 oz 125 lb 0.034 oz Last Vital Signs Temp Pulse Resp BP Pulse Ox 98 F 66 14 158/56 100 12/06/16 02:00 12/06/16 06:00 12/06/16 10:15 12/06/16 06:00 12/06/16 09:00 Active Medications Acetaminophen (Tylenol Suppository -) 650 mg [place] Q4H PRN PRN Reason: FEVER OR PAIN Artificial Tears (Artificial Tears) 1 drop OU QID PRN PRN Reason: DRY EYES Last Admin: 12/05/16 06:28 Dose: 1 drop Ceftriaxone Sodium (Rocephin 1gm Ivpb (Pre-Docked)) 1 gm IVPB DAILY [facility] Last Admin: 12/06/16 09:18 Dose: 1 gm Chlorhexidine Gluconate (Hibiclens For Decolonization -) 1 applic TP HS [facility] Last Admin: 12/05/16 21:07 Dose: 1 applic Dextrose (D50w (Vial) -) 50 ml IVPUSH Q1H PRN PRN Reason: for blood glucose <75 Last Admin: 12/04/16 14:00 Dose: 50 ml Fosphenytoin Sodium (Cerebyx -) 300 mg IVPB Q12H [facility] Last Admin: 12/06/16 07:54 Dose: 300 mg Heparin Sodium (Porcine) (Heparin -) 5,000 unit SQ TID [facility] Last Admin: 12/06/16 06:06 Dose: 5,000 unit Pantoprazole Sodium (Protonix 40mg Ivpb (Pre-Docked)) 100 mls @ 100 mls/hr IVPB DAILY [facility] Last Admin: 12/06/16 09:18 Dose: 100 mls/hr Propofol (Diprivan -) 100 mls @ 1.638 mls/hr IVPB TITR LUIS ALBERTO; 5 MCG/KG/MIN PRN Reason: Protocol Last Admin: 12/05/16 14:04 Dose: 8.192 mls/hr Lorazepam 40 mg/ Dextrose 120 mls @ 6 mls/hr IVPB TITR LUIS ALBERTO; 2 MG/HR PRN Reason: Protocol Last Admin: 12/05/16 14:02 Dose: 9 mls/hr Insulin Aspart (Novolog Vial Sliding Scale -) 1 vial SQ Q4HPO LUIS ALBERTO PRN Reason: Protocol Last Admin: 12/06/16 09:31 Dose: 2 units Levetiracetam (Keppra Injection -) 2,000 mg IVPB BID [facility] Last Admin: 12/06/16 09:18 Dose: 2,000 mg Methylprednisolone Sodium Succinate (Solu-Medrol -) 40 mg IVPB Q8H-IV [facility] Last Admin: 12/06/16 09:18 Dose: 40 mg Mupirocin (Bactroban Ointment (For Decolonization) -) 1 applic NS BID [facility] Stop: 12/08/16 21:59 Last Admin: 12/06/16 09:18 Dose: 1 applic Phenytoin Sodium (Dilantin Injection -) 100 mg IVPB Q8H [facility] Last Admin: 12/06/16 07:54 Dose: 100 mg Valproate Sodium (Depacon Injection -) 750 mg IVPB Q6H [facility] Last Admin: 12/06/16 06:00 Dose: 750 mg Eyes: Yes: Pinpoint pupils,. non-reactive Neck: Yes: Trachea Midline Cardiovascular: Yes: Regular Rate and Rhythm, Murmur (systolic murmur) Respiratory: Yes: Diminished, Intubated, Mechanically Ventilated, Poor Air Entry , Rhonchi Gastrointestinal: Yes: Soft Neuro: unable to assess cranial reflexes as patient is seizing and having jerkey movements of his face and eyes Edema: No Labs: Laboratory Results - last 24 hr 12/03/16 12/05/16 12/05/16 17:00 09:09 12:09 WBC RBC Hgb Hct MCV MCHC RDW Plt Count MPV Anticoagulation Therapy Y Puncture Site Right radial ABG pH 7.40 ABG pCO2 at Pt Temp 46.9 H ABG pO2 at Pt Temp 103.0 H ABG HCO3 28.5 H ABG O2 Sat (Measured) 97.4 ABG O2 Content 12.6 L ABG Base Excess 3.8 H Paul Test Positive O2 Delivery Device Mechanical vent Oxygen Flow Rate 40% Vent Mode A/c Vent Rate 14 Mechanical Rate Yes PEEP 5.0 Pressure Support Vent 475 ml Sodium Potassium Chloride Carbon Dioxide Anion Gap BUN Creatinine Creat Clearance w eGFR POC Glucometer 159.01368 Random Glucose Calcium Phosphorus Magnesium Total Bilirubin AST ALT Alkaline Phosphatase Creatine Kinase Creatine Kinase Index CK-MB (CK-2) CK-MB (CK-2) Rel Index Troponin I Total Protein Albumin Phenytoin Hepatitis A IgM Ab Negative Hepatitis A Ab Total Positive H Hep Bs Antigen Negative Hep Bs Antibody Reactive Hep B Core Total Ab Negative 12/05/16 12/05/16 12/06/16 14:11 16:40 01:27 WBC RBC Hgb Hct MCV MCHC RDW Plt Count MPV Anticoagulation Therapy Puncture Site ABG pH ABG pCO2 at Pt Temp ABG pO2 at Pt Temp ABG HCO3 ABG O2 Sat (Measured) ABG O2 Content ABG Base Excess Paul Test O2 Delivery Device Oxygen Flow Rate Vent Mode Vent Rate Mechanical Rate PEEP Pressure Support Vent Sodium Potassium Chloride Carbon Dioxide Anion Gap BUN Creatinine Creat Clearance w eGFR POC Glucometer 159.45895 228.41143 155.14616 Random Glucose Calcium Phosphorus Magnesium Total Bilirubin AST ALT Alkaline Phosphatase Creatine Kinase Creatine Kinase Index CK-MB (CK-2) CK-MB (CK-2) Rel Index Troponin I Total Protein Albumin Phenytoin Hepatitis A IgM Ab Hepatitis A Ab Total Hep Bs Antigen Hep Bs Antibody Hep B Core Total Ab 12/06/16 12/06/16 12/06/16 05:30 05:30 05:30 WBC 6.1 D RBC 3.02 L Hgb 8.4 L Hct 26.9 L MCV 89.0 MCHC 31.1 L RDW 19.2 H Plt Count 208 MPV 8.1 Anticoagulation Therapy Puncture Site ABG pH ABG pCO2 at Pt Temp ABG pO2 at Pt Temp ABG HCO3 ABG O2 Sat (Measured) ABG O2 Content ABG Base Excess Paul Test O2 Delivery Device Oxygen Flow Rate Vent Mode Vent Rate Mechanical Rate PEEP Pressure Support Vent Sodium 140 Potassium 3.7 Chloride 96 L Carbon Dioxide 27 Anion Gap 17 H BUN 46 H D Creatinine 4.7 H D Creat Clearance w eGFR 12.21 POC Glucometer Random Glucose 112 H Calcium 6.5 L* Phosphorus 7.0 H Magnesium 2.2 D Total Bilirubin 0.3 D AST 67 H ALT 31 Alkaline Phosphatase 59 Creatine Kinase Creatine Kinase Index CK-MB (CK-2) CK-MB (CK-2) Rel Index Troponin I Total Protein 5.3 L Albumin 2.1 L Phenytoin 7.7 L D Hepatitis A IgM Ab Hepatitis A Ab Total Hep Bs Antigen Hep Bs Antibody Hep B Core Total Ab 12/06/16 12/06/16 12/06/16 05:30 05:30 05:38 WBC RBC Hgb Hct MCV MCHC RDW Plt Count MPV Anticoagulation Therapy Puncture Site ABG pH ABG pCO2 at Pt Temp ABG pO2 at Pt Temp ABG HCO3 ABG O2 Sat (Measured) ABG O2 Content ABG Base Excess Paul Test O2 Delivery Device Oxygen Flow Rate Vent Mode Vent Rate Mechanical Rate PEEP Pressure Support Vent Sodium Potassium Chloride Carbon Dioxide Anion Gap BUN Creatinine Creat Clearance w eGFR POC Glucometer 137.82688 Random Glucose Calcium Phosphorus Magnesium Total Bilirubin AST ALT Alkaline Phosphatase Creatine Kinase 287 D Creatine Kinase Index 0.9 CK-MB (CK-2) 2.531 CK-MB (CK-2) Rel Index Cancelled Troponin I 0.11 H Total Protein Albumin Phenytoin Hepatitis A IgM Ab Hepatitis A Ab Total Hep Bs Antigen Hep Bs Antibody Hep B Core Total Ab 12/06/16 12/06/16 07:20 09:29 WBC RBC Hgb Hct MCV MCHC RDW Plt Count MPV Anticoagulation Therapy Puncture Site Right radial ABG pH 7.40 ABG pCO2 at Pt Temp 36.9 D ABG pO2 at Pt Temp 99.8 ABG HCO3 22.4 ABG O2 Sat (Measured) 97.0 ABG O2 Content 12.3 L ABG Base Excess -1.6 Paul Test Positive O2 Delivery Device Vent Oxygen Flow Rate 40 Vent Mode A/c Vent Rate 14 Mechanical Rate Yes PEEP 5.0 Pressure Support Vent 475 Sodium Potassium Chloride Carbon Dioxide Anion Gap BUN Creatinine Creat Clearance w eGFR POC Glucometer [phone] Random Glucose Calcium Phosphorus Magnesium Total Bilirubin AST ALT Alkaline Phosphatase Creatine Kinase Creatine Kinase Index CK-MB (CK-2) CK-MB (CK-2) Rel Index Troponin I Total Protein Albumin Phenytoin Hepatitis A IgM Ab Hepatitis A Ab Total Hep Bs Antigen Hep Bs Antibody Hep B Core Total Ab Problem List - Problems (1) Cardiac arrest Code(s): I46.9 - CARDIAC ARREST, CAUSE UNSPECIFIED (2) Hyperkalemia Code(s): E87.5 - HYPERKALEMIA (3) Hypothermia Code(s): T68.XXXA - HYPOTHERMIA, INITIAL ENCOUNTER Qualifiers: Encounter type: initial encounter Qualified Code(s): T68.XXXA - Hypothermia, initial encounter (4) End stage kidney disease Code(s): N18.6 - END STAGE RENAL DISEASE (5) CVA (cerebral vascular accident) Code(s): I63.9 - CEREBRAL INFARCTION, UNSPECIFIED (6) Hyperkalemia, diminished renal excretion Code(s): E87.5 - HYPERKALEMIA Assessment/Plan AC Mode of vent / adjustments made HD per Renal Off pressors Neuro checks Follow official EEG AEDs per Neuro Family refusing for access change -> Risks and benefits were discussed in detail Overall prognosis for meaningful recovery initially appears poor Dr Avendaño CCTime 35"
--- NOTE | 2016-12-06 11:01 | PN ---
Progress Note, Physician History of Present Illness: seen and examined at bedside in ICU. intubated sedation held - Current Medication List Current Medications: Active Medications Acetaminophen (Tylenol Suppository -) 650 mg [place] Q4H PRN PRN Reason: FEVER OR PAIN Artificial Tears (Artificial Tears) 1 drop OU QID PRN PRN Reason: DRY EYES Last Admin: 12/05/16 06:28 Dose: 1 drop Ceftriaxone Sodium (Rocephin 1gm Ivpb (Pre-Docked)) 1 gm IVPB DAILY [facility] Last Admin: 12/06/16 09:18 Dose: 1 gm Chlorhexidine Gluconate (Hibiclens For Decolonization -) 1 applic TP HS [facility] Last Admin: 12/05/16 21:07 Dose: 1 applic Dextrose (D50w (Vial) -) 50 ml IVPUSH Q1H PRN PRN Reason: for blood glucose <75 Last Admin: 12/04/16 14:00 Dose: 50 ml Fosphenytoin Sodium (Cerebyx -) 300 mg IVPB Q12H [facility] Last Admin: 12/06/16 07:54 Dose: 300 mg Heparin Sodium (Porcine) (Heparin -) 5,000 unit SQ TID [facility] Last Admin: 12/06/16 06:06 Dose: 5,000 unit Pantoprazole Sodium (Protonix 40mg Ivpb (Pre-Docked)) 100 mls @ 100 mls/hr IVPB DAILY [facility] Last Admin: 12/06/16 09:18 Dose: 100 mls/hr Propofol (Diprivan -) 100 mls @ 1.638 mls/hr IVPB TITR LUIS ALBERTO; 5 MCG/KG/MIN PRN Reason: Protocol Last Admin: 12/05/16 14:04 Dose: 8.192 mls/hr Lorazepam 40 mg/ Dextrose 120 mls @ 6 mls/hr IVPB TITR LUIS ALBERTO; 2 MG/HR PRN Reason: Protocol Last Admin: 12/05/16 14:02 Dose: 9 mls/hr Insulin Aspart (Novolog Vial Sliding Scale -) 1 vial SQ Q4HPO LUIS ALBERTO PRN Reason: Protocol Last Admin: 12/06/16 09:31 Dose: 2 units Levetiracetam (Keppra Injection -) 2,000 mg IVPB BID [facility] Last Admin: 12/06/16 09:18 Dose: 2,000 mg Methylprednisolone Sodium Succinate (Solu-Medrol -) 40 mg IVPB Q8H-IV [facility] Last Admin: 12/06/16 09:18 Dose: 40 mg Mupirocin (Bactroban Ointment (For Decolonization) -) 1 applic NS BID [facility] Stop: 12/08/16 21:59 Last Admin: 12/06/16 09:18 Dose: 1 applic Phenytoin Sodium (Dilantin Injection -) 100 mg IVPB Q8H [facility] Last Admin: 12/06/16 07:54 Dose: 100 mg Valproate Sodium (Depacon Injection -) 750 mg IVPB Q6H [facility] Last Admin: 12/06/16 06:00 Dose: 750 mg - Objective Vital Signs: Vital Signs Temperature 98 F 12/06/16 02:00 Pulse Rate 66 12/06/16 06:00 Respiratory Rate 14 12/06/16 10:15 Blood Pressure 158/56 12/06/16 06:00 O2 Sat by Pulse Oximetry (%) 100 12/06/16 09:00 Eyes: Yes: Other (pinpoint pupils non reactive) Neck: Yes: Trachea Midline Cardiovascular: Yes: Regular Rate and Rhythm, Murmur (systolic murmur) Respiratory: Yes: Diminished, Intubated, Mechanically Ventilated, Poor Air Entry , Rhonchi Gastrointestinal: Yes: Soft Neuro: no gag reflex no corneal reflex no response to pain GCS 3 Edema: No Labs: CBC, BMP 12/06/16 05:30 12/06/16 05:30 INR, PTT INR 1.22 (0.82-1.09) H 12/04/16 05:05 Assessment/Plan 76M with multiple medical problems presents to the ED s/p cardiac arrest. 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 and the length of time patient coded in ED it could be estimated to be about 20 minutes patient has anoxic brain injury hypothermia protocol was initiated now rewarmed ventilatory support ABG in AM ICU care off pressors Neurochecks propofol and ativan gtt will increase propofol gtt as patient is still seizing on ativan and propofol continue keppra and depakote at max doses changed phenytoin to fosfenytoin cardiology consult appreciated ECHO noted Femoral was supposed to come out 24hours after presentation however again the family would like to keep it for now risks of infection explained will need head CT when stable hold sedation Hyperkalemia: resolved with dialysis trend BMP dialysis per renal Septic shock: PNA on CXR vs effusion though clinically PNA makes is more likely it is very possible patient aspirated prior to coming in or during intubation ID consult appreciated allergic to penicillin continue ceftriaxone stop flagyl Solumedrol End Stage Renal Disease on HD: dialyzed yesterday Nephrology consult appreciated DM: BGM Q4h ISS HTN: hold antihypertensives at this time - will consider restarting some of his BP meds as patient is becoming hypertensive history of CVA: no issues at this time FEN: no IVF being dialyzed replete magnesium/dialysis NPO for now PPx: HSQ Protonix PT consult when appropriate Poor prognosis at this time. with a very poor chance at any meaningful recovery family meeting today at noon [facility] notified CCTime 45min
--- NOTE | 2016-12-06 11:19 | PN ---
Progress Note (short form) - Note Progress Note: History of Present Illness: 76 year old man with history of left craniotomy, subdural hemorrhage, seizure disorder, end stage renal disease on dialysis, diabetes, stroke, left lung collapse, presents to [facility] status post cardiac arrest. Patient was picked up by ambulette and en route to dialysis was noted to be unresponsive. The patient was found to be in cardiac arrest, coded, and brought to ED. In ED was given epinephrine, intubated and sedated, and hypothermic. Patient was previously on hypothermia protocol. Not paralyzed. Since yesterday noted seizure like movements. Was previously on propofol with no improvement in symptoms. Today less shaking movements noted, some eye fluttering. Intubated and sedated on propofol drip. Dilantin 100 TID - level corrected 15.2 Depakote 500 q6h Keppra increased to [address] g bid EEG and CT head not completed yet - Past Medical History [employer]: Yes: CVA, Dementia Pulmonary: Yes: Previously Intubated Renal/: Yes: Renal Failure, Hemodialysis Endocrine: Yes: Diabetes Insipidus - Alcohol/Substance Use Hx Alcohol Use: No - Smoking History Smoking history: Former smoker Have you smoked in the past 12 months: No Aproximately how many cigarettes per day: 0 If you are a former smoker, when did you quit?: 1999 Home Medications - Allergies Allergies/Adverse Reactions: Allergies Allergy/AdvReac Type Severity Reaction Status Date / Time Penicillins Allergy Intermediate Rash Verified 12/03/16 13:33 - Home Medications Home Medications: Ambulatory Orders Unobtainable [Unobtainable] 12/03/16 Review of Systems Unable to obtain ROS, reason: mental status Physical Exam Neurological: Yes: Other (Intubated, off propofol, no obvious gaze preference pupils 2 mm non reactive, corneal + right, equivocal corneal left, does not withdraw to noxious or verbal stimuli, no spontaneous movement, no obvious seizure activity or myoclonus) Assessment/Plan 76 year old man with history of left craniotomy, subdural hemorrhage, seizure disorder, end stage renal disease on dialysis, diabetes, stroke, left lung collapse, presents to [facility] status post cardiac arrest. Patient was picked up by ambulette and en route to dialysis was noted to be unresponsive. The patient was found to be in cardiac arrest, coded, and brought to ED. In ED was given epinephrine, intubated and sedated, and hypothermic. Off hypothermia protocol. Intubated, propofol and ativan discontinued this am. Exam- +corneal right, pupils pinpoint NR, no spontaneous movement or withdrawl. No obvious seizure activity. EEG consistent with status epilepticus w burst suppression EEG daily CT head when able Fosphenytoin 300 BID, level corrected for albumin and creatinine clearance 24.8 Keppra 2 g BID Valproate 750 q6h, level today pending Will follow
--- NOTE | 2016-12-06 11:55 | PN ---
Progress Note, Physician History of Present Illness: Remains unresponsive on vent, now off sedation. Less myoclonic jerks. EEG consistent with status epilepticus w burst suppression c/w ASTER. - Current Medication List Current Medications: Active Medications Acetaminophen (Tylenol Suppository -) 650 mg [place] Q4H PRN PRN Reason: FEVER OR PAIN Artificial Tears (Artificial Tears) 1 drop OU QID PRN PRN Reason: DRY EYES Last Admin: 12/05/16 06:28 Dose: 1 drop Ceftriaxone Sodium (Rocephin 1gm Ivpb (Pre-Docked)) 1 gm IVPB DAILY [facility] Last Admin: 12/06/16 09:18 Dose: 1 gm Chlorhexidine Gluconate (Hibiclens For Decolonization -) 1 applic TP HS [facility] Last Admin: 12/05/16 21:07 Dose: 1 applic Dextrose (D50w (Vial) -) 50 ml IVPUSH Q1H PRN PRN Reason: for blood glucose <75 Last Admin: 12/04/16 14:00 Dose: 50 ml Fosphenytoin Sodium (Cerebyx -) 300 mg IVPB Q12H [facility] Last Admin: 12/06/16 07:54 Dose: 300 mg Heparin Sodium (Porcine) (Heparin -) 5,000 unit SQ TID [facility] Last Admin: 12/06/16 06:06 Dose: 5,000 unit Pantoprazole Sodium (Protonix 40mg Ivpb (Pre-Docked)) 100 mls @ 100 mls/hr IVPB DAILY [facility] Last Admin: 12/06/16 09:18 Dose: 100 mls/hr Propofol (Diprivan -) 100 mls @ 1.638 mls/hr IVPB TITR LUIS ALBERTO; 5 MCG/KG/MIN PRN Reason: Protocol Last Admin: 12/05/16 14:04 Dose: 8.192 mls/hr Lorazepam 40 mg/ Dextrose 120 mls @ 6 mls/hr IVPB TITR LUIS ALBERTO; 2 MG/HR PRN Reason: Protocol Last Admin: 12/05/16 14:02 Dose: 9 mls/hr Insulin Aspart (Novolog Vial Sliding Scale -) 1 vial SQ Q4HPO [facility]IS ALBERTO PRN Reason: Protocol Last Admin: 12/06/16 09:31 Dose: 2 units Levetiracetam (Keppra Injection -) 2,000 mg IVPB BID [facility] Last Admin: 12/06/16 09:18 Dose: 2,000 mg Methylprednisolone Sodium Succinate (Solu-Medrol -) 40 mg IVPB Q8H-IV [facility] Last Admin: 12/06/16 09:18 Dose: 40 mg Mupirocin (Bactroban Ointment (For Decolonization) -) 1 applic NS BID [facility] Stop: 12/08/16 21:59 Last Admin: 12/06/16 09:18 Dose: 1 applic Phenytoin Sodium (Dilantin Injection -) 100 mg IVPB Q8H [facility] Last Admin: 12/06/16 07:54 Dose: 100 mg Valproate Sodium (Depacon Injection -) 750 mg IVPB Q6H [facility] Last Admin: 12/06/16 11:33 Dose: 750 mg - Objective Vital Signs: Vital Signs Temperature 98.8 F 12/06/16 08:00 Pulse Rate 58 L 12/06/16 10:00 Respiratory Rate 14 12/06/16 10:15 Blood Pressure 126/49 12/06/16 10:00 O2 Sat by Pulse Oximetry (%) 100 12/06/16 09:00 Cardiovascular: Yes: Regular Rate and Rhythm Respiratory: Yes: Intubated, Mechanically Ventilated, Rhonchi Gastrointestinal: Yes: Normal Bowel Sounds, Soft Edema: No Labs: CBC, BMP 12/06/16 05:30 12/06/16 05:30 INR, PTT INR 1.22 (0.82-1.09) H 12/04/16 05:05 - ....Imaging Chest X-ray: Report Reviewed (Right effusion with right mid-lower lung infiltrates) Problem List - Problems (1) Acute respiratory failure with hypoxia Code(s): J96.01 - ACUTE RESPIRATORY FAILURE WITH HYPOXIA (2) Aspiration pneumonia Code(s): J69.0 - PNEUMONITIS DUE TO INHALATION OF FOOD AND VOMIT Qualifiers: Aspiration pneumonia type: due to vomit Laterality: unspecified laterality (3) Cardiac arrest Code(s): I46.9 - CARDIAC ARREST, CAUSE UNSPECIFIED (4) Hyperkalemia, diminished renal excretion Code(s): E87.5 - HYPERKALEMIA (5) Lactic acidosis Code(s): E87.2 - ACIDOSIS (6) Pleural effusion, right Code(s): J90 - PLEURAL EFFUSION, NOT ELSEWHERE CLASSIFIED (7) Anemia in chronic kidney disease (CKD) Code(s): N18.9 - CHRONIC KIDNEY DISEASE, UNSPECIFIED D63.1 - ANEMIA IN CHRONIC KIDNEY DISEASE (8) End stage kidney disease Code(s): N18.6 - END STAGE RENAL DISEASE (9) Type 2 diabetes mellitus Code(s): E11.9 - TYPE 2 DIABETES MELLITUS WITHOUT COMPLICATIONS Qualifiers: Diabetes mellitus complication status: with kidney complications Chronic kidney disease stage: on chronic dialysis (10) CVA (cerebral vascular accident) Code(s): I63.9 - CEREBRAL INFARCTION, UNSPECIFIED Assessment/Plan Echocardiography revealed normal LV size and function, mild MR, mild to moderate TR with mild degree of pulmonary HTN, RVSP 30-40 mmHg 1. Acute hypoxemic respiratory failure referable to 2. Post asystolic arrest in context of 3. ESRD on HD with hyperkalemia since resolved 4. Resolved septic shock with lactic acidosis, referable to asp pneumonia 5. Probable anoxic encephalopathy, with seizure activity 6. CAD with evidence of demand ischemic injury 7. History of CVA 8. Hyperglycemia 9. Anemia PLAN: 1. Weaned off pressors and sedation 2. Empiric antibiotic course and steroids as per the primary team 3. Vent management as per the critical care team 4. Neurological f/u appreciated, placed on antiepileptics 5. HD per renal 6. DVT and GI prophylaxis
--- NOTE | 2016-12-06 13:09 | PN ---
Progress Note (short form) - Note Progress Note: Renal Follow up for ESRD on HD Pt seen and examined in the ICU on Vent Sedated no overnight events s/p dialysis yesterday Vital Signs Temperature 98.8 F 12/06/16 12:00 Pulse Rate 118 H 12/06/16 12:02 Respiratory Rate 14 12/06/16 12:00 Blood Pressure 133/48 12/06/16 12:00 O2 Sat by Pulse Oximetry (%) 100 12/06/16 12:02 Intake & Output 12/03/16 12/04/16 12/05/16 12/06/16 23:59 23:59 23:59 23:59 Intake Total 1277.9 3797 2408.0 Output Total 150 200 250 0 Balance 1127.9 3597 2158.0 0 Weight 48 lb 120 lb 6.4 oz 121 lb 11.2 oz 125 lb 0.034 oz Gen: NAD, awake and alert HEENT: NC/AT, MMM, No JVD CVS: RRR, No M/R Lungs: CTA, Dec BS at lung bases Abd: soft NT/ND Ext: No edema, clubbing or cyanosis Neuro: Sedated, + facial twitches CBC, BMP 12/06/16 05:30 12/06/16 05:30 Current Medications Acetaminophen (Tylenol Suppository -) 650 mg [place] Q4H PRN PRN Reason: FEVER OR PAIN Artificial Tears (Artificial Tears) 1 drop OU QID PRN PRN Reason: DRY EYES Last Admin: 12/05/16 06:28 Dose: 1 drop Ceftriaxone Sodium (Rocephin 1gm Ivpb (Pre-Docked)) 1 gm IVPB DAILY [facility] Last Admin: 12/06/16 09:18 Dose: 1 gm Chlorhexidine Gluconate (Hibiclens For Decolonization -) 1 applic TP HS [facility] Last Admin: 12/05/16 21:07 Dose: 1 applic Dextrose (D50w (Vial) -) 50 ml IVPUSH Q1H PRN PRN Reason: for blood glucose <75 Last Admin: 12/04/16 14:00 Dose: 50 ml Fosphenytoin Sodium (Cerebyx -) 300 mg IVPB Q12H [facility] Last Admin: 12/06/16 07:54 Dose: 300 mg Heparin Sodium (Porcine) (Heparin -) 5,000 unit SQ TID [facility] Last Admin: 12/06/16 06:06 Dose: 5,000 unit Pantoprazole Sodium (Protonix 40mg Ivpb (Pre-Docked)) 100 mls @ 100 mls/hr IVPB DAILY [facility] Last Admin: 12/06/16 09:18 Dose: 100 mls/hr Propofol (Diprivan -) 100 mls @ 1.638 mls/hr IVPB TITR [facility]; 5 MCG/KG/MIN PRN Reason: Protocol Last Admin: 12/05/16 14:04 Dose: 8.192 mls/hr Lorazepam 40 mg/ Dextrose 120 mls @ 6 mls/hr IVPB TITR [facility]; 2 MG/HR PRN Reason: Protocol Last Admin: 12/05/16 14:02 Dose: 9 mls/hr Insulin Aspart (Novolog Vial Sliding Scale -) 1 vial SQ Q4HPO [facility] PRN Reason: Protocol Last Admin: 12/06/16 09:31 Dose: 2 units Levetiracetam (Keppra Injection -) 2,000 mg IVPB BID [facility] Last Admin: 12/06/16 09:18 Dose: 2,000 mg Methylprednisolone Sodium Succinate (Solu-Medrol -) 40 mg IVPB Q8H-IV [facility] Last Admin: 12/06/16 09:18 Dose: 40 mg Mupirocin (Bactroban Ointment (For Decolonization) -) 1 applic NS BID [facility] Stop: 12/08/16 21:59 Last Admin: 12/06/16 09:18 Dose: 1 applic Phenytoin Sodium (Dilantin Injection -) 100 mg IVPB Q8H [facility] Last Admin: 12/06/16 07:54 Dose: 100 mg Valproate Sodium (Depacon Injection -) 750 mg IVPB Q6H [facility] Last Admin: 12/06/16 11:33 Dose: 750 mg A/P 76 year old Gentleman with PMhx of ESRD on HD (MWF), Anemia, CVA, Seizure disorder who presented unresponsive and found to have cardiac arrest. 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 Anoxic Brain injury/ Seizures ICU monitoirng Vent support Continue anti-seizure meds as per neurology EEG showed status epilepticus #Hypocalcemia/Hyperphosphtemia Corrected Ca is 8.2 Trend Phos daily not on feeds #Anemia No acute indication for transfusion at this time Poor prognosis Thank you Fernie Palmer DO
--- NOTE | 2016-12-06 13:43 | PN ---
Progress Note (short form) - Note Progress Note: family meeting held with patient's son daughter in law brother and insurance inspector. Whole situation and sequence of events recapped with family from moment patient was picked up by ambulette. It was explained there is an extremely grave prognosis of any meaningful recovery. the severity of the patient's condition was discussed in detail. Daughter in law is a nurse. the family at this time would like to wait another day and discuss with other family members the contents of the meeting. they would like results of second EEG and to wait longer off sedation. DNR was also brought up and family does not want a DNR at this time. the ICU team gave a chance to the family to ask questions. Risks of persistent vegetative state explained such as but not including infection DVT bed sores. Total family meeting time 65min
[2016-12-06] MEDS: PROPOFOL 100 ML IVPB SCH (14:04)
--- NOTE | 2016-12-06 14:16 | PN ---
Physical Exam: SUBJECTIVE: Patient seen and examined. Off pressors, sedation, benzo gtt, BP stable OBJECTIVE: Vital Signs Period Temp Pulse Resp BP Sys/Vee Pulse Ox Last 24 Hr 98 F-99.8 F 58-118 14-15 112-187/37-56 100-100 PE Neuro: no gag reflex Pulm: intubated, diminished HEENT: NGT, Pinpoint pupils, no corneal reflex CV: s1 s2 rrr Abd: s nt +bs Ext: trace UE raheem, R groin TLC cdi, L arm fistula + thrill CBCD WBC 6.1 K/mm3 (4.0-10.0) D 12/06/16 05:30 RBC 3.02 M/mm3 (4.00-5.60) L 12/06/16 05:30 Hgb 8.4 GM/dL (11.7-16.9) L 12/06/16 05:30 Hct 26.9 % (35.4-49) L 12/06/16 05:30 MCV 89.0 fl (80-96) 12/06/16 05:30 MCHC 31.1 g/dl (32.0-35.9) L 12/06/16 05:30 RDW 19.2 % (11.9-15.9) H 12/06/16 05:30 Plt Count 208 K/MM3 (134-434) 12/06/16 05:30 MPV 8.1 fl (7.5-11.1) 12/06/16 05:30 CMP Sodium 140 mmol/L (136-145) 12/06/16 05:30 Potassium 3.7 mmol/L (3.5-5.1) 12/06/16 05:30 Chloride 96 mmol/L (98-107) L 12/06/16 05:30 Carbon Dioxide 27 mmol/L (21-32) 12/06/16 05:30 Anion Gap 17 (8-16) H 12/06/16 05:30 BUN 46 mg/dL (7-18) H D 12/06/16 05:30 Creatinine 4.7 mg/dL (0.7-1.3) H D 12/06/16 05:30 Creat Clearance w eGFR 12.21 (>60) 12/06/16 05:30 Calcium 6.5 mg/dL (8.5-10.1) L* 12/06/16 05:30 Total Bilirubin 0.3 mg/dL (0.2-1.0) D 12/06/16 05:30 AST 67 U/L (15-37) H 12/06/16 05:30 ALT 31 U/L (12-78) 12/06/16 05:30 Alkaline Phosphatase 59 U/L (45-117) 12/06/16 05:30 Total Protein 5.3 g/dl (6.4-8.2) L 12/06/16 05:30 Albumin 2.1 g/dl (3.4-5.0) L 12/06/16 05:30 Active Medications Generic Name Dose Route Start Last Admin Trade Name Freq PRN Reason Stop Dose Admin Acetaminophen 650 mg 12/03/16 16:27 Tylenol Suppository - ND Q4H PRN FEVER OR PAIN Artificial Tears 1 drop 12/04/16 15:07 12/05/16 06:28 Artificial Tears OU 1 drop QID PRN Administration DRY EYES Ceftriaxone Sodium 1 gm 12/03/16 17:30 12/06/16 09:18 Rocephin 1gm Ivpb (Pre-Docked) IVPB 1 gm DAILY [facility] Administration Chlorhexidine Gluconate 1 applic 12/03/16 22:00 12/05/16 21:07 Hibiclens For Decolonization - TP 1 applic HS [facility] Administration Dextrose 50 ml 12/04/16 15:08 12/04/16 14:00 D50w (Vial) - IVPUSH 50 ml Q1H PRN Administration for blood glucose <75 Epoetin Bruno 10,000 units 12/07/16 06:00 Epogen - IVPUSH 12/07/16 06:01 ONCE ONE Fosphenytoin Sodium 300 mg 12/05/16 19:15 12/06/16 07:54 Cerebyx - IVPB 300 mg Q12H [facility] AL[facility]ERTO Administration Heparin Sodium (Porcine) 5,000 unit 12/03/16 22:00 12/06/16 13:58 Heparin - SQ 5,000 unit TID [facility]ERTO Administration Pantoprazole Sodium 100 mls @ 100 mls/hr 12/03/16 16:45 12/06/16 09:18 Protonix 40mg Ivpb (Pre-Docked) IVPB 100 mls/hr DAILY [facility] Administration Propofol 100 mls @ 1.638 mls/hr 12/04/16 14:00 12/06/16 14:04 Diprivan - IVPB Not Given TITR [facility] ALBERTO Protocol 5 MCG/KG/MIN Lorazepam 40 mg/ Dextrose 120 mls @ 6 mls/hr 12/04/16 14:45 12/05/16 14:02 IVPB 9 mls/hr TITR [facility] ALBERTO Administration Protocol 2 MG/HR Insulin Aspart 1 vial 12/03/16 18:00 12/06/16 13:54 Novolog Vial Sliding Scale - SQ 2 units Q4HPO [facility]ERT[facility] Administration Protocol Levetiracetam 2,000 mg 12/05/16 22:00 12/06/16 09:18 Keppra Injection - IVPB 2,000 mg BID [facility] Administration Methylprednisolone Sodium Succinate 40 mg 12/03/16 18:00 12/06/16 09:18 Solu-Medrol - IVPB 40 mg Q8H-IV [facility] Administration Mupirocin 1 applic 12/03/16 22:00 12/06/16 09:18 Bactroban Ointment (For Decolonization) - NS 12/08/16 21:59 1 applic BID [facility] Administration Phenytoin Sodium 100 mg 12/04/16 08:00 12/06/16 07:54 Dilantin Injection - IVPB 100 mg Q8H [facility] Administration Valproate Sodium 750 mg 12/05/16 18:00 12/06/16 11:33 Depacon Injection - IVPB 750 mg Q6H [facility] Administration Imaging: - ECHO: revealed normal LV size and function, mild MR, mild to moderate TR with mild degree of pulmonary HTN, RVSP 30-40 mmHg Assessment: 76 year old man with history of left craniotomy, subdural hemorrhage , seizure disorder, ESRD on HD (MW), DM II, CVA, left lung collapse admitted s /p cardiac arrest while enroute to HD in ambulette, coded, intubated, hypothermia protocol initiated, dialyzed in ICU. Plan: 1. Seizures - EEG shows status epileptics and burst suppression c/w ASTER - Off ativan gtt - Continue Dilantin 100mg q8 - Start Fosphenytoin 300mg q12 - Increase Valproate then 750mg q6 - Keppra 2gm BID - Family would like second EEG - Head CT to be done 2. Septic shock, cardiogenic d/t seizure? aspiration pna? - Off pressors - BP stable 3. Cardiac Arrest - No change in mental status 4. Acute respiratory failure - Intubated - Solumedrol 40mg q8h - Continue vent support - Wean fio2 for spo2 >90% 5. Aspiration PNA - CXR shows R pleural effusion/increased density possible infiltrate - Continue empiric ceftriaxone 6. ESRD on HD/electrolytes - HD tomorrow with epo per Renal - Potassium wnl - Hypocalcemia, corrected wnl 7. CAD with elevated trops - Likely demand ischemia from septic shock 8. DVT ppx - Heparin tid Dispo: - Family made aware poor prognosis, and infection risk for keeping femoral tlc, would like to keep in place and see response while off sedation and ativan CODE STATUS: FULL CODE Visit type - Emergency Visit Emergency Visit: Yes ED Registration Date: 12/03/16 Care time: The patient presented to the Emergency Department on the above date and was hospitalized for further evaluation of their emergent condition. - New Patient This patient is new to me today: No - Critical Care Critical Care patient: No
[2016-12-06] MEDS ORDERED: VALPROATE SODIUM 500 MG/5 ML VIAL IVPB ONE (17:08)
[2016-12-06] MEDS ORDERED: PHENYTOIN SODIUM 100 MG/2 ML VIAL IVPB ONE (17:11)
[2016-12-06] MEDS ORDERED: levETIRAcetam 500 MG/5 ML INJECTION VIAL IVPB ONE (17:12)
[2016-12-06] MEDS ORDERED: Lacosamide 200 MG/20 ML VIAL IVPB ONE (17:13)
[2016-12-06] MEDS: CHLORHEXIDINE GLUCONATE 4% CLEANSER FOR DECOLONIZATION TP SCH (21:18)
[2016-12-07] MEDS: INSULIN SLIDING SCALE (NOVOLOG) 1 VIAL SQ SCH ×6 (02:00→21:05)
[2016-12-07] MEDS: methylPREDNISolone NA SUCC 40 MG/1 ML VIAL IVPB SCH ×3 (03:00→18:18)
[2016-12-07] MEDS: VALPROATE SODIUM 500 MG/5 ML VIAL IVPB SCH ×4 (03:00→21:05)
[2016-12-07 05:26] LABS: MCHC 31.5 g/dl (32.0-35.9); MEAN PLT VOLUME 7.7 fl (7.5-11.1); PLATELET COUNT 192 K/MM3 (134-434); WHITE BLOOD COUNT 4.4 K/mm3 (4.0-10.0)
[2016-12-07] MEDS: HEPARIN NA (PORCINE) 5,000 UNITS/ML 1ML VIAL SQ SCH ×3 (05:52→21:02)
[2016-12-07] MEDS ORDERED: EPOETIN ALFA 2,000 UNITS/1 ML VIAL IVPUSH ONE (06:00)
[2016-12-07 06:04] LABS: ALBUMIN 2.1 g/dl (3.4-5.0); MAGNESIUM 2.3 mg/dL (1.8-2.4)
[2016-12-07 06:06] LABS: BILIRUBIN,TOTAL 0.3 mg/dL (0.2-1.0); CREATININE 6.4 mg/dL (0.7-1.3); TOT PROT 5.3 g/dl (6.4-8.2)
[2016-12-07 06:19] LABS: CALCIUM 5.8 mg/dL (8.5-10.1)
[2016-12-07 06:24] LABS: PHOSPHOROUS 8.8 mg/dL (2.5-4.9)
[2016-12-07] MEDS ORDERED: DEXTROSE 50%-WATER 50 ML VIAL ONE (06:57)
[2016-12-07] MEDS ORDERED: DEXTROSE 50%-WATER 50 ML VIAL IVPUSH ONE (06:57)
[2016-12-07] MEDS ORDERED: ACETAMINOPHEN 1000 MG/100 ML VIAL (NON FORMULARY) IVPB ONE (07:00)
[2016-12-07 07:24] LABS: ARTERIAL BLD GAS O2 SATURATION 98.7 % (90-98.9); ARTERIAL BLOOD GAS BASE EXCESS -6.3 meq/l (-2-2); ARTERIAL BLOOD GAS HCO3 18.5 meq/L (22-26); ARTERIAL BLOOD GAS pH 7.33 (7.35-7.45)
[2016-12-07 07:25] LABS: ALLENS TEST POSITIVE; ART PUNCT SITE RIGHT RADIAL; LPM/O2% 40%; MECH. VENT. YES; PT. ON O2? YES; TYPE OF O2 MECHANICAL VENT; VENT RATE 14; VT/PRESS 475 ML
--- NOTE | 2016-12-07 07:31 | PN ---
Progress Note, Physician Chief Complaint: ID Remains unresponsive on the ventilator Ceftriaxone given Low grade fevers 100.4 Off pressor support - Current Medication List Current Medications: Active Medications Acetaminophen (Tylenol Suppository -) 650 mg IN Q4H PRN PRN Reason: FEVER OR PAIN Artificial Tears (Artificial Tears) 1 drop OU QID PRN PRN Reason: DRY EYES Last Admin: 12/05/16 06:28 Dose: 1 drop Ceftriaxone Sodium (Rocephin 1gm Ivpb (Pre-Docked)) 1 gm IVPB DAILY [facility] Last Admin: 12/06/16 09:18 Dose: 1 gm Chlorhexidine Gluconate (Hibiclens For Decolonization -) 1 applic TP HS [facility] Last Admin: 12/06/16 21:18 Dose: 1 applic Dextrose (D50w (Vial) -) 50 ml IVPUSH Q1H PRN PRN Reason: for blood glucose <75 Last Admin: 12/04/16 14:00 Dose: 50 ml Epoetin Bruno (Epogen -) 10,000 units IVPUSH ONCE ONE Stop: 12/07/16 06:01 Fosphenytoin Sodium (Cerebyx -) 300 mg IVPB Q12H [facility] Last Admin: 12/06/16 21:16 Dose: 300 mg Heparin Sodium (Porcine) (Heparin -) 5,000 unit SQ TID [facility] Last Admin: 12/07/16 05:52 Dose: 5,000 unit Pantoprazole Sodium (Protonix 40mg Ivpb (Pre-Docked)) 100 mls @ 100 mls/hr IVPB DAILY [facility] Last Admin: 12/06/16 09:18 Dose: 100 mls/hr Propofol (Diprivan -) 100 mls @ 1.638 mls/hr IVPB TITR [facility] ALBERTO; 5 MCG/KG/MIN PRN Reason: Protocol Last Admin: 12/06/16 14:04 Dose: Not Given Lorazepam 40 mg/ Dextrose 120 mls @ 6 mls/hr IVPB TITR [facility] AL[facility]ERTO; 2 MG/HR PRN Reason: Protocol Last Admin: 12/06/16 09:00 Dose: Not Given Insulin Aspart (Novolog Vial Sliding Scale -) 1 vial SQ Q4HPO [facility] PRN Reason: Protocol Last Admin: 12/07/16 02:00 Dose: Not Given Levetiracetam (Keppra Injection -) 2,000 mg IVPB BID [facility] Last Admin: 12/06/16 21:18 Dose: 2,000 mg Methylprednisolone Sodium Succinate (Solu-Medrol -) 40 mg IVPB Q8H-IV [facility] Last Admin: 12/07/16 03:00 Dose: 40 mg Mupirocin (Bactroban Ointment (For Decolonization) -) 1 applic NS BID [facility] Stop: 12/08/16 21:59 Last Admin: 12/06/16 21:17 Dose: 1 applic Phenytoin Sodium (Dilantin Injection -) 100 mg IVPB Q8H [facility] Last Admin: 12/07/16 00:00 Dose: 100 mg Valproate Sodium (Depacon Injection -) 1,000 mg IVPB Q6H-IV [facility] Last Admin: 12/07/16 03:00 Dose: 1,000 mg - Objective Vital Signs: Vital Signs Temperature 100.4 F H 12/07/16 04:00 Pulse Rate 69 12/07/16 06:00 Respiratory Rate 14 12/07/16 06:34 Blood Pressure 97/44 12/07/16 06:00 O2 Sat by Pulse Oximetry (%) 100 12/07/16 06:34 Constitutional: Yes: Other (Coma) Cardiovascular: Yes: S1, S2 Respiratory: Yes: WNL, Regular, CTA Bilaterally Gastrointestinal: Yes: Soft. No: Tenderness Edema: No Labs: CBC, BMP 12/07/16 05:00 12/07/16 05:00 INR, PTT INR 1.22 (0.82-1.09) H 12/04/16 05:05 Assessment/Plan Microbiology 12/03/16 12:00 Blood - Peripheral Venous Blood Culture - Preliminary NO GROWTH OBTAINED AFTER 72 HOURS, INCUBATION TO CONTINUE FOR 2 DAYS. 12/03/16 12:00 Blood - Peripheral Venous Blood Culture - Preliminary NO GROWTH OBTAINED AFTER 72 HOURS, INCUBATION TO CONTINUE FOR 2 DAYS. Laboratory Tests 12/07/16 12/07/16 05:00 07:13 WBC 4.4 Hgb 8.7 L Hct 27.6 L Plt Count 192 ABG pH 7.33 L ABG pCO2 at Pt Temp 36.0 ABG pO2 at Pt Temp 144.0 H D Assessment Cardiopulmonary arrest ESRD( groin line) Pneumonia Seizure disorder Plan End of life discussions in progress Continue Ceftriaxone for PNA Sputum c/s Mya GREY
[2016-12-07] MEDS: FOSPHENYTOIN SODIUM 100 MG/2 ML VIAL IVPB SCH ×2 (09:27→19:59)
[2016-12-07] MEDS ORDERED: VALPROATE SODIUM 500 MG/5 ML VIAL IVPB ONE ×2 (09:35→17:00)
[2016-12-07] MEDS ORDERED: PT OWN MED DRAWER 7, Y5N ONE ×2 (09:43→19:27)
[2016-12-07] MEDS: PHENYTOIN SODIUM 100 MG/2 ML VIAL IVPB SCH ×3 (09:49→18:27)
[2016-12-07] MEDS: levETIRAcetam 500 MG/5 ML INJECTION VIAL IVPB SCH ×2 (09:50→21:01)
[2016-12-07] MEDS: MUPIROCIN 2% TOPICAL OINTMENT FOR DECOLONIZATION NS SCH ×2 (09:50→21:12)
[2016-12-07] MEDS: cefTRIAXone 1 GM/50 ML BAG (PRE-DOCKED) IVPB SCH (09:51)
[2016-12-07] MEDS: PANTOPRAZOLE SODIUM 100 ML IVPB SCH (09:51)
--- NOTE | 2016-12-07 10:21 | PN ---
Teaching Attending Note Name of Resident: Tato Fields ATTENDING PHYSICIAN STATEMENT I saw and evaluated the patient. I reviewed the resident's note and discussed the case with the resident. I agree with the resident's findings and plan as documented. SUBJECTIVE: Patient seen and examined in the ICU. Remains intubated. Off sedation. (+) corneal reflex on the right and triggering of the vent. EEG: Verbal report of continued status. Intake & Output 12/04/16 12/05/16 12/06/16 12/07/16 23:59 23:59 23:59 23:59 Intake Total 3797 2408.0 2095 Output Total 200 250 25 0 Balance 3597 2158.0 2070 0 Weight 120 lb 6.4 oz 121 lb 11.2 oz 125 lb 0.034 oz 126 lb 8.725 oz Last Vital Signs Temp Pulse Resp BP Pulse Ox 99 F 50 L 14 100/43 100 12/07/16 08:00 12/07/16 08:00 12/07/16 08:06 12/07/16 08:00 12/07/16 08:06 Active Medications Acetaminophen (Tylenol Suppository -) 650 mg [place] Q4H PRN PRN Reason: FEVER OR PAIN Artificial Tears (Artificial Tears) 1 drop OU QID PRN PRN Reason: DRY EYES Last Admin: 12/05/16 06:28 Dose: 1 drop Ceftriaxone Sodium (Rocephin 1gm Ivpb (Pre-Docked)) 1 gm IVPB DAILY [facility] Last Admin: 12/07/16 09:51 Dose: 1 gm Chlorhexidine Gluconate (Hibiclens For Decolonization -) 1 applic TP HS [facility] Last Admin: 12/06/16 21:18 Dose: 1 applic Dextrose (D50w (Vial) -) 50 ml IVPUSH Q1H PRN PRN Reason: for blood glucose <75 Last Admin: 12/04/16 14:00 Dose: 50 ml Epoetin Bruno (Epogen -) 10,000 units IVPUSH ONCE ONE Stop: 12/07/16 06:01 Fosphenytoin Sodium (Cerebyx -) 300 mg IVPB Q12H [facility] Last Admin: 12/07/16 09:27 Dose: 300 mg Heparin Sodium (Porcine) (Heparin -) 5,000 unit SQ TID [facility] Last Admin: 12/07/16 05:52 Dose: 5,000 unit Pantoprazole Sodium (Protonix 40mg Ivpb (Pre-Docked)) 100 mls @ 100 mls/hr IVPB DAILY [facility] Last Admin: 12/07/16 09:51 Dose: 100 mls/hr Propofol (Diprivan -) 100 mls @ 1.638 mls/hr IVPB TITR [facility] ALBERTO; 5 MCG/KG/MIN PRN Reason: Protocol Last Admin: 12/06/16 14:04 Dose: Not Given Lorazepam 40 mg/ Dextrose 120 mls @ 6 mls/hr IVPB TITR [facility] ALBERTO; 2 MG/HR PRN Reason: Protocol Last Admin: 12/06/16 09:00 Dose: Not Given Insulin Aspart (Novolog Vial Sliding Scale -) 1 vial SQ Q4HPO [facility] PRN Reason: Protocol Last Admin: 12/07/16 02:00 Dose: Not Given Levetiracetam (Keppra Injection -) 2,000 mg IVPB BID [facility] Last Admin: 12/07/16 09:50 Dose: 2,000 mg Levetiracetam (Keppra Injection -) 2,000 mg IVPB ONCE ONE Stop: 12/07/16 09:37 Methylprednisolone Sodium Succinate (Solu-Medrol -) 40 mg IVPB Q8H-IV [facility] Last Admin: 12/07/16 09:51 Dose: 40 mg Mupirocin (Bactroban Ointment (For Decolonization) -) 1 applic NS BID [facility] Stop: 12/08/16 21:59 Last Admin: 12/07/16 09:50 Dose: 1 applic Phenytoin Sodium (Dilantin Injection -) 100 mg IVPB Q8H [facility] Last Admin: 12/07/16 09:49 Dose: 100 mg Valproate Sodium (Depacon Injection -) 1,000 mg IVPB Q6H-IV [facility] Last Admin: 12/07/16 09:48 Dose: 1,000 mg Valproate Sodium (Depacon Injection -) 1,000 mg IVPB ONCE ONE Stop: 12/07/16 09:36 Eyes: Yes: Intubated, AC Mode of vent Neck: Yes: Trachea Midline Cardiovascular: Yes: Regular Rate and Rhythm, Murmur (systolic murmur) Respiratory: Yes: Diminished, Intubated, Mechanically Ventilated, Poor Air Entry , Rhonchi Gastrointestinal: Yes: Soft Neuro: (+) right corneal reflex, (+) triggering of the vent Edema: No Labs: Laboratory Results - last 24 hr 12/06/16 12/06/16 12/06/16 05:30 05:30 09:29 WBC RBC Hgb Hct MCV MCHC RDW Plt Count MPV Puncture Site ABG pH ABG pCO2 at Pt Temp ABG pO2 at Pt Temp ABG HCO3 ABG O2 Sat (Measured) ABG O2 Content ABG Base Excess Paul Test O2 Delivery Device Oxygen Flow Rate Vent Mode Vent Rate Mechanical Rate PEEP Pressure Support Vent Sodium Potassium Chloride Carbon Dioxide Anion Gap BUN Creatinine Creat Clearance w eGFR POC Glucometer 151.45274 Random Glucose Calcium Phosphorus Magnesium Total Bilirubin AST ALT Alkaline Phosphatase Total Protein Albumin Phenytoin 7.7 L D Valproic Acid 35.237 L 12/06/16 12/06/16 12/06/16 13:51 18:34 20:39 WBC RBC Hgb Hct MCV MCHC RDW Plt Count MPV Puncture Site ABG pH ABG pCO2 at Pt Temp ABG pO2 at Pt Temp ABG HCO3 ABG O2 Sat (Measured) ABG O2 Content ABG Base Excess Paul Test O2 Delivery Device Oxygen Flow Rate Vent Mode Vent Rate Mechanical Rate PEEP Pressure Support Vent Sodium Potassium Chloride Carbon Dioxide Anion Gap BUN Creatinine Creat Clearance w eGFR POC Glucometer 189.25931 141.42408 192.03322 Random Glucose Calcium Phosphorus Magnesium Total Bilirubin AST ALT Alkaline Phosphatase Total Protein Albumin Phenytoin Valproic Acid 12/07/16 12/07/16 12/07/16 05:00 05:00 05:00 WBC 4.4 RBC 3.10 L Hgb 8.7 L Hct 27.6 L MCV 89.0 MCHC 31.5 L RDW 19.0 H Plt Count 192 MPV 7.7 Puncture Site ABG pH ABG pCO2 at Pt Temp ABG pO2 at Pt Temp ABG HCO3 ABG O2 Sat (Measured) ABG O2 Content ABG Base Excess Paul Test O2 Delivery Device Oxygen Flow Rate Vent Mode Vent Rate Mechanical Rate PEEP Pressure Support Vent Sodium 141 Potassium 5.0 D Chloride 100 Carbon Dioxide 22 Anion Gap 19 H BUN 86 H D Creatinine 6.4 H D Creat Clearance w eGFR 8.55 POC Glucometer Random Glucose 41 L* D Calcium 5.8 L* Phosphorus 8.8 H D Magnesium 2.3 Total Bilirubin 0.3 AST 61 H ALT 30 Alkaline Phosphatase 58 Total Protein 5.3 L Albumin 2.1 L Phenytoin 15.7 D Valproic Acid 12/07/16 12/07/16 12/07/16 05:04 05:06 06:49 WBC RBC Hgb Hct MCV MCHC RDW Plt Count MPV Puncture Site ABG pH ABG pCO2 at Pt Temp ABG pO2 at Pt Temp ABG HCO3 ABG O2 Sat (Measured) ABG O2 Content ABG Base Excess Paul Test O2 Delivery Device Oxygen Flow Rate Vent Mode Vent Rate Mechanical Rate PEEP Pressure Support Vent Sodium Potassium Chloride Carbon Dioxide Anion Gap BUN Creatinine Creat Clearance w eGFR POC Glucometer > 400 67.91516 65.94586 Random Glucose Calcium Phosphorus Magnesium Total Bilirubin AST ALT Alkaline Phosphatase Total Protein Albumin Phenytoin Valproic Acid 12/07/16 07:13 WBC RBC Hgb Hct MCV MCHC RDW Plt Count MPV Puncture Site Right radial ABG pH 7.33 L ABG pCO2 at Pt Temp 36.0 ABG pO2 at Pt Temp 144.0 H D ABG HCO3 18.5 L ABG O2 Sat (Measured) 98.7 ABG O2 Content 11.7 L ABG Base Excess -6.3 L Paul Test Positive O2 Delivery Device Mechanical vent Oxygen Flow Rate 40% Vent Mode A/c Vent Rate 14 Mechanical Rate Yes PEEP 5.0 Pressure Support Vent 475 ml Sodium Potassium Chloride Carbon Dioxide Anion Gap BUN Creatinine Creat Clearance w eGFR POC Glucometer Random Glucose Calcium Phosphorus Magnesium Total Bilirubin AST ALT Alkaline Phosphatase Total Protein Albumin Phenytoin Valproic Acid Problem List - Problems (1) Cardiac arrest Code(s): I46.9 - CARDIAC ARREST, CAUSE UNSPECIFIED (2) Hyperkalemia Code(s): E87.5 - HYPERKALEMIA (3) Hypothermia Code(s): T68.XXXA - HYPOTHERMIA, INITIAL ENCOUNTER Qualifiers: Encounter type: initial encounter Qualified Code(s): T68.XXXA - Hypothermia, initial encounter (4) End stage kidney disease Code(s): N18.6 - END STAGE RENAL DISEASE (5) CVA (cerebral vascular accident) Code(s): I63.9 - CEREBRAL INFARCTION, UNSPECIFIED (6) Hyperkalemia, diminished renal excretion Code(s): E87.5 - HYPERKALEMIA Assessment/Plan AC Mode of vent / adjustments made HD per Renal Off pressors Neuro checks Follow official EEG AEDs per Neuro D/C TLC Patient not brain -> but severe ASTER. Need to optimize status epilepticus treatment. Dr Avendaño CCTime 35"
[2016-12-07] MEDS ORDERED: levETIRAcetam 500 MG/5 ML INJECTION VIAL IVPB ONE ×3 (10:30→17:56)
--- NOTE | 2016-12-07 11:09 | PN ---
Progress Note (short form) - Note Progress Note: SUBJECTIVE: The patient was seen and examined at the bedside, he is unresponsive. Right slight corneal reflex present. No left corneal reflex. Triggering off vent Current Medications Generic Name Dose Route Start Last Admin Trade Name Freq PRN Reason Stop Dose Admin Acetaminophen 650 mg 12/03/16 16:27 Tylenol Suppository - [place] Q4H PRN FEVER OR PAIN Artificial Tears 1 drop 12/04/16 15:07 12/05/16 06:28 Artificial Tears OU 1 drop QID PRN Administration DRY EYES Ceftriaxone Sodium 1 gm 12/03/16 17:30 12/07/16 09:51 Rocephin 1gm Ivpb (Pre-Docked) IVPB 1 gm DAILY LUIS ALBERTO Administration Chlorhexidine Gluconate 1 applic 12/03/16 22:00 12/06/16 21:18 Hibiclens For Decolonization - TP 1 applic HS LUIS ALBERTO Administration Dextrose 50 ml 12/04/16 15:08 12/04/16 14:00 D50w (Vial) - IVPUSH 50 ml Q1H PRN Administration for blood glucose <75 Epoetin Bruno 10,000 units 12/07/16 06:00 Epogen - IVPUSH 12/07/16 06:01 ONCE ONE Fosphenytoin Sodium 300 mg 12/05/16 19:15 12/07/16 09:27 Cerebyx - IVPB 300 mg Q12H LUIS ALBERTO Administration Heparin Sodium (Porcine) 5,000 unit 12/03/16 22:00 12/07/16 05:52 Heparin - SQ 5,000 unit TID LUIS ALBERTO Administration Pantoprazole Sodium 100 mls @ 100 mls/hr 12/03/16 16:45 12/07/16 09:51 Protonix 40mg Ivpb (Pre-Docked) IVPB 100 mls/hr DAILY LUIS ALBERTO Administration Propofol 100 mls @ 1.638 mls/hr 12/04/16 14:00 12/06/16 14:04 Diprivan - IVPB Not Given TITR LUIS ALBERTO Protocol 5 MCG/KG/MIN Lorazepam 40 mg/ Dextrose 120 mls @ 6 mls/hr 12/04/16 14:45 12/06/16 09:00 IVPB Not Given TITR LUIS ALBERTO Protocol 2 MG/HR Insulin Aspart 1 vial 12/03/16 18:00 12/07/16 02:00 Novolog Vial Sliding Scale - SQ Not Given Q4HPO [facility]IS ALBERTO Protocol Levetiracetam 2,000 mg 12/05/16 22:00 12/07/16 09:50 Keppra Injection - IVPB 2,000 mg BID LUIS ALBERTO Administration Methylprednisolone Sodium Succinate 40 mg 12/03/16 18:00 12/07/16 09:51 Solu-Medrol - IVPB 40 mg Q8H-IV LUIS ALBERTO Administration Mupirocin 1 applic 12/03/16 22:00 12/07/16 09:50 Bactroban Ointment (For Decolonization) - NS 12/08/16 21:59 1 applic BID LUIS ALBERTO Administration Phenytoin Sodium 100 mg 12/04/16 08:00 12/07/16 09:49 Dilantin Injection - IVPB 100 mg Q8H LUIS ALBERTO Administration Valproate Sodium 1,000 mg 12/06/16 21:00 12/07/16 09:48 Depacon Injection - IVPB 1,000 mg Q6H-IV LUIS ALBERTO Administration OBJECTIVE: Vital Signs Period Temp Pulse Resp BP Sys/Vee Pulse Ox Last 24 Hr 98.4 F-100.4 F 50-122 14-16 97-143/42-51 100-100 Physical Exam: General: NAD, unresponsive, on vent HEENT: pinpoint pupils, non-reactive bilaterally Lungs: Decreased breath sounds b/l Heart: RRR, S1S2 Abd: Soft, non-distended. Normoactive bowel sounds Ext: Trace b/l lower extremity edema. LUE fistula, +thrill, +bruit. Neuro: No gag reflex present CBCD WBC 4.4 K/mm3 (4.0-10.0) 12/07/16 05:00 RBC 3.10 M/mm3 (4.00-5.60) L 12/07/16 05:00 Hgb 8.7 GM/dL (11.7-16.9) L 12/07/16 05:00 Hct 27.6 % (35.4-49) L 12/07/16 05:00 MCV 89.0 fl (80-96) 12/07/16 05:00 MCHC 31.5 g/dl (32.0-35.9) L 12/07/16 05:00 RDW 19.0 % (11.9-15.9) H 12/07/16 05:00 Plt Count 192 K/MM3 (134-434) 12/07/16 05:00 MPV 7.7 fl (7.5-11.1) 12/07/16 05:00 CMP Sodium 141 mmol/L (136-145) 12/07/16 05:00 Potassium 5.0 mmol/L (3.5-5.1) D 12/07/16 05:00 Chloride 100 mmol/L (98-107) 12/07/16 05:00 Carbon Dioxide 22 mmol/L (21-32) 12/07/16 05:00 Anion Gap 19 (8-16) H 12/07/16 05:00 BUN 86 mg/dL (7-18) H D 12/07/16 05:00 Creatinine 6.4 mg/dL (0.7-1.3) H D 12/07/16 05:00 Creat Clearance w eGFR 8.55 (>60) 12/07/16 05:00 Random Glucose 41 mg/dL (74-106) L* D 12/07/16 05:00 Calcium 5.8 mg/dL (8.5-10.1) L* 12/07/16 05:00 Total Bilirubin 0.3 mg/dL (0.2-1.0) 12/07/16 05:00 AST 61 U/L (15-37) H 12/07/16 05:00 ALT 30 U/L (12-78) 12/07/16 05:00 Alkaline Phosphatase 58 U/L (45-117) 12/07/16 05:00 Total Protein 5.3 g/dl (6.4-8.2) L 12/07/16 05:00 Albumin 2.1 g/dl (3.4-5.0) L 12/07/16 05:00 CARDIAC ENZYMES Creatine Kinase 287 IU/L (39-308) D 12/06/16 05:30 Troponin I 0.11 ng/ml (0.00-0.05) H 12/06/16 05:30 Microbiology 12/03/16 12:00 Blood - Peripheral Venous Blood Culture - Preliminary NO GROWTH OBTAINED AFTER 72 HOURS, INCUBATION TO CONTINUE FOR 2 DAYS. 12/03/16 12:00 Blood - Peripheral Venous Blood Culture - Preliminary NO GROWTH OBTAINED AFTER 72 HOURS, INCUBATION TO CONTINUE FOR 2 DAYS. Imaging: - ECHO: revealed normal LV size and function, mild MR, mild to moderate TR with mild degree of pulmonary HTN, RVSP 30-40 mmHg Assessment: This is a 76 year old male with PMHx of left craniotomy, subdural hemorrhage, seizure disorder, ESRD on HD (MWF), DMII, CVA, left lung collapse, who presented to the ED s/p cardiac arrest in ambulette on his way to HD Plan: 1) Cardiology: Cardiac arrest, CAD - Elevated trops, likely demand ischemia - Remains on ventilator - Weaned off sedation - No change in mental status - Appreciate cardiology consult 2) Pulmonary: acute hypoxemic respiratory failure - Remains intubated - Continue Solu-medrol 40mg IVPB q8h - Appreciate pulmonary consult 3) ID: Septic shock 2/2 pneumonia - Tmax 100.4 - Pressors restarted today - Continue Ceftriaxone - F/u sputum culture - Blood cultures with NGTD - Appreciate ID consult 4) Neuro: Seizures - Right corneal reflex. Pinpoint pupils b/l, non-reactive - EEG 12/05 with generalized spikes and sharp waves discharges consistent with status epilepticus - F/u EEG today - Continue Valproate 1,000mg IVPB q6h - Continue Fosphenytoin 300mg IVPB q12h - Continue Phenytoin 1,000mg IVPB q8h - Continue Keppra 2,000mg IVPB bid - Appreciate neuro consult 5) : ESRD on HD - HD today - Appreciate nephrology consult 6) F/E/N: - NPO - Monitor electrolytes 7) Prophylaxis: - Heparin 5,000u sq tid - Protonix 40mg IVPB daily 8) Dispo: - Requires continued inpatient care - Continued discussion regarding code status with family CODE STATUS: FULL CODE Visit type - Emergency Visit Emergency Visit: Yes ED Registration Date: 12/03/16 Care time: The patient presented to the Emergency Department on the above date and was hospitalized for further evaluation of their emergent condition. - New Patient This patient is new to me today: Yes Date on this admission: 12/07/16 - Critical Care Critical Care patient: Yes Total Critical Care Time (in minutes): 45 Critical Care Statement: The care of this patient involved high complexity decision making to prevent further life threatening deterioration of the patient 's condition and/or to evalute & treat vital organ system(s) failure or risk of failure.
[2016-12-07] MEDS ORDERED: SEVELAMER CARBONATE 0.8 GM POWDER PACKET NGT ONE (11:29)
[2016-12-07] MEDS ORDERED: SODIUM CHLORIDE 1,000 ML IV STA (11:29)
--- NOTE | 2016-12-07 11:29 | PN ---
Progress Note (short form) - Note Progress Note: Renal Follow up for ESRD on HD Pt seen and examined in the ICU pt hypotensive this am remains on vent Vital Signs Temperature 99 F 12/07/16 08:00 Pulse Rate 50 L 12/07/16 08:00 Respiratory Rate 14 12/07/16 08:06 Blood Pressure 100/43 12/07/16 08:00 O2 Sat by Pulse Oximetry (%) 100 12/07/16 08:06 Intake & Output 12/04/16 12/05/16 12/06/16 12/07/16 23:59 23:59 23:59 23:59 Intake Total 3797 2408.0 2095 Output Total 200 250 25 0 Balance 3597 2158.0 2070 0 Weight 120 lb 6.4 oz 121 lb 11.2 oz 125 lb 0.034 oz 126 lb 8.725 oz Gen: NAD, awake and alert HEENT: NC/AT, MMM, No JVD CVS: RRR, No M/R Lungs: CTA, Dec BS at lung bases Abd: soft NT/ND Ext: No edema, clubbing or cyanosis Neuro: Sedated, + facial twitches CBC, BMP 12/07/16 05:00 12/07/16 05:00 Current Medications Acetaminophen (Tylenol Suppository -) 650 mg [place] Q4H PRN PRN Reason: FEVER OR PAIN Artificial Tears (Artificial Tears) 1 drop OU QID PRN PRN Reason: DRY EYES Last Admin: 12/05/16 06:28 Dose: 1 drop Calcium Gluconate (Calcium Gluconate 10% -) 1,000 mg IVPB Q1H [facility] Stop: 12/07/16 12:31 Ceftriaxone Sodium (Rocephin 1gm Ivpb (Pre-Docked)) 1 gm IVPB DAILY [facility] Last Admin: 12/07/16 09:51 Dose: 1 gm Chlorhexidine Gluconate (Hibiclens For Decolonization -) 1 applic TP HS [facility] Last Admin: 12/06/16 21:18 Dose: 1 applic Dextrose (D50w (Vial) -) 50 ml IVPUSH Q1H PRN PRN Reason: for blood glucose <75 Last Admin: 12/04/16 14:00 Dose: 50 ml Epoetin Bruno (Epogen -) 10,000 units IVPUSH ONCE ONE Stop: 12/07/16 06:01 Fosphenytoin Sodium (Cerebyx -) 300 mg IVPB Q12H [facility] Last Admin: 12/07/16 09:27 Dose: 300 mg Heparin Sodium (Porcine) (Heparin -) 5,000 unit SQ TID [facility] Last Admin: 12/07/16 05:52 Dose: 5,000 unit Pantoprazole Sodium (Protonix 40mg Ivpb (Pre-Docked)) 100 mls @ 100 mls/hr IVPB DAILY [facility] Last Admin: 12/07/16 09:51 Dose: 100 mls/hr Propofol (Diprivan -) 100 mls @ 1.638 mls/hr IVPB TITR LUIS ALBERTO; 5 MCG/KG/MIN PRN Reason: Protocol Last Admin: 12/06/16 14:04 Dose: Not Given Lorazepam 40 mg/ Dextrose 120 mls @ 6 mls/hr IVPB TITR LUIS ALBERTO; 2 MG/HR PRN Reason: Protocol Last Admin: 12/06/16 09:00 Dose: Not Given Norepinephrine Bitartrate 8, (000 mcg/ Sodium Chloride) 508 mls @ 19.05 mls/hr IV TITR LUIS ALBERTO; 5 MCG/MIN PRN Reason: Protocol Insulin Aspart (Novolog Vial Sliding Scale -) 1 vial SQ Q4HPO LUIS ALBERTO PRN Reason: Protocol Last Admin: 12/07/16 02:00 Dose: Not Given Levetiracetam (Keppra Injection -) 2,000 mg IVPB BID [facility] Last Admin: 12/07/16 09:50 Dose: 2,000 mg Methylprednisolone Sodium Succinate (Solu-Medrol -) 40 mg IVPB Q8H-IV [facility] Last Admin: 12/07/16 09:51 Dose: 40 mg Mupirocin (Bactroban Ointment (For Decolonization) -) 1 applic NS BID [facility] Stop: 12/08/16 21:59 Last Admin: 12/07/16 09:50 Dose: 1 applic Phenytoin Sodium (Dilantin Injection -) 100 mg IVPB Q8H [facility] Last Admin: 12/07/16 09:49 Dose: 100 mg Valproate Sodium (Depacon Injection -) 1,000 mg IVPB Q6H-IV [facility] Last Admin: 12/07/16 09:48 Dose: 1,000 mg A/P 76 year old Gentleman with PMhx of ESRD on HD (MWF), Anemia, CVA, Seizure disorder who presented unresponsive and found to have cardiac arrest. #ESRD on HD Planned for dialysis today however pt is unstable at this time Will need to give IVF and likely need vasopressers to maintain map will re-evaluate later this afternoon for dialysis #Cardiac Arrest/Resp Failure/? Anoxic Brain injury/ Seizures ICU and Vent support anti-seizure medications as per neurology supportive care #Hypocalcemia/Hyperphosphtemia Corrected Ca is 7.5 Give Calcium Gluconate 2g IV Start Renvela Q8h via NGT #Anemia No acute indication for transfusion at this time Thank you Fernie Palmer DO
[2016-12-07] MEDS ORDERED: NOREPINEPHRINE BITARTRATE 8,000 MCG in SODIUM CHLORIDE 500 ML IV SCH (11:30)
[2016-12-07] MEDS ORDERED: NOREPINEPHRINE BITARTRATE 4 MG/4 ML ML IV ONE (11:38)
--- NOTE | 2016-12-07 11:45 | PN ---
Progress Note, Physician History of Present Illness: seen and examined at bedside in ICU. intubated sedation held for 24 hours already hypotensive family aware and states they do not want resuscitation but would like pressors on their way in - Current Medication List Current Medications: Active Medications Acetaminophen (Tylenol Suppository -) 650 mg [place] Q4H PRN PRN Reason: FEVER OR PAIN Artificial Tears (Artificial Tears) 1 drop OU QID PRN PRN Reason: DRY EYES Last Admin: 12/05/16 06:28 Dose: 1 drop Calcium Gluconate (Calcium Gluconate 10% -) 1,000 mg IVPB Q1H [facility] Stop: 12/07/16 12:31 Ceftriaxone Sodium (Rocephin 1gm Ivpb (Pre-Docked)) 1 gm IVPB DAILY [facility] Last Admin: 12/07/16 09:51 Dose: 1 gm Chlorhexidine Gluconate (Hibiclens For Decolonization -) 1 applic TP HS [facility] Last Admin: 12/06/16 21:18 Dose: 1 applic Dextrose (D50w (Vial) -) 50 ml IVPUSH Q1H PRN PRN Reason: for blood glucose <75 Last Admin: 12/04/16 14:00 Dose: 50 ml Epoetin Bruno (Epogen -) 10,000 units IVPUSH ONCE ONE Stop: 12/07/16 06:01 Fosphenytoin Sodium (Cerebyx -) 300 mg IVPB Q12H [facility] Last Admin: 12/07/16 09:27 Dose: 300 mg Heparin Sodium (Porcine) (Heparin -) 5,000 unit SQ TID [facility] Last Admin: 12/07/16 05:52 Dose: 5,000 unit Pantoprazole Sodium (Protonix 40mg Ivpb (Pre-Docked)) 100 mls @ 100 mls/hr IVPB DAILY [facility] Last Admin: 12/07/16 09:51 Dose: 100 mls/hr Propofol (Diprivan -) 100 mls @ 1.638 mls/hr IVPB TITR LUIS ALBERTO; 5 MCG/KG/MIN PRN Reason: Protocol Last Admin: 12/06/16 14:04 Dose: Not Given Lorazepam 40 mg/ Dextrose 120 mls @ 6 mls/hr IVPB TITR LUIS ALBERTO; 2 MG/HR PRN Reason: Protocol Last Admin: 12/06/16 09:00 Dose: Not Given Norepinephrine Bitartrate 8, (000 mcg/ Sodium Chloride) 508 mls @ 19.05 mls/hr IV TITR LUIS ALBERTO; 5 MCG/MIN PRN Reason: Protocol Sodium Chloride (Normal Saline -) 1,000 mls @ 1,000 mls/hr IV [facility] Stop: 12/07/16 12:28 Insulin Aspart (Novolog Vial Sliding Scale -) 1 vial SQ Q4HPO [facility]IS ALBERTO PRN Reason: Protocol Last Admin: 12/07/16 02:00 Dose: Not Given Levetiracetam (Keppra Injection -) 2,000 mg IVPB BID [facility] ALBERTO Last Admin: 12/07/16 09:50 Dose: 2,000 mg Methylprednisolone Sodium Succinate (Solu-Medrol -) 40 mg IVPB Q8H-IV [facility]ERT[facility] Last Admin: 12/07/16 09:51 Dose: 40 mg Mupirocin (Bactroban Ointment (For Decolonization) -) 1 applic NS BID [facility] ALBERTO Stop: 12/08/16 21:59 Last Admin: 12/07/16 09:50 Dose: 1 applic Phenytoin Sodium (Dilantin Injection -) 100 mg IVPB Q8H [facility] Last Admin: 12/07/16 09:49 Dose: 100 mg Valproate Sodium (Depacon Injection -) 1,000 mg IVPB Q6H-IV [facility] Last Admin: 12/07/16 09:48 Dose: 1,000 mg - Objective Vital Signs: Vital Signs Temperature 99 F 12/07/16 08:00 Pulse Rate 50 L 12/07/16 08:00 Respiratory Rate 14 12/07/16 08:06 Blood Pressure 69/32 12/07/16 08:00 O2 Sat by Pulse Oximetry (%) 100 12/07/16 08:06 Eyes: Yes: Other (pinpoint pupils non reactive) Neck: Yes: Trachea Midline Cardiovascular: Yes: Regular Rate and Rhythm, Murmur (systolic murmur) Respiratory: Yes: Diminished, Intubated, Mechanically Ventilated, Poor Air Entry , Rhonchi Gastrointestinal: Yes: Soft Neuro: no gag reflex reflex right corneal reflex is visible only on right and it is intermittent no response to pain GCS 3 able to trigger the vent on CPAP Edema: No Labs: CBC, BMP 12/07/16 05:00 12/07/16 05:00 INR, PTT INR 1.22 (0.82-1.09) H 12/04/16 05:05 Assessment/Plan 76M with multiple medical problems presents to the ED s/p cardiac arrest. 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 and the length of time patient coded in ED it could be estimated to be about 20 minutes patient has anoxic brain injury s/p hypothermia protocol ventilatory support ABG in AM ICU care off pressors Neurochecks propofol and ativan gtt will increase propofol gtt as patient is still seizing on ativan and propofol continue keppra and depakote at max doses changed phenytoin to fosfenytoin cardiology consult appreciated ECHO noted Femoral line to be removed today will discuss central line with family -was supposed to come out 24 hours after presentation however the family wanted to keep it for now risks of infection explained will need head CT when stable hold sedation patient is hypotensive today- bolus normal saline and start levophed for hypotension Hyperkalemia: resolved with dialysis trend BMP dialysis per renal Septic shock: PNA on CXR vs effusion though clinically PNA makes is more likely it is very possible patient aspirated prior to coming in or during intubation ID consult appreciated allergic to penicillin continue ceftriaxone off flagyl Solumedrol End Stage Renal Disease on HD: dialyzed yesterday will hold off on dialysis today per nephrology Nephrology consult appreciated DM: BGM Q4h ISS HTN: hold antihypertensives at this time as patient is currently hypotensive history of CVA: no issues at this time FEN: bolus NS 1liter now replete magnesium/dialysis NPO for now PPx: HSQ Protonix PT consult when appropriate [facility] [place] notified CCTime 45min Family told me over the phoen they do not want CPR and are coming in to signa DNR however at this melecio they would like pressors and aggressive therapy to continue
[2016-12-07] MEDS: CALCIUM GLUCONATE 10% - 1,000 MG/10 ML VIAL IVPB SCH ×2 (12:11→13:43)
--- NOTE | 2016-12-07 12:42 | PN ---
Progress Note, Physician History of Present Illness: Remains unresponsive on vent, remains off sedation. EEG consistent with status epilepticus w burst suppression c/w ASTER. Placed back on Levophed gtt. - Current Medication List Current Medications: Active Medications Acetaminophen (Tylenol Suppository -) 650 mg [place] Q4H PRN PRN Reason: FEVER OR PAIN Artificial Tears (Artificial Tears) 1 drop OU QID PRN PRN Reason: DRY EYES Last Admin: 12/05/16 06:28 Dose: 1 drop Ceftriaxone Sodium (Rocephin 1gm Ivpb (Pre-Docked)) 1 gm IVPB DAILY [facility] Last Admin: 12/07/16 09:51 Dose: 1 gm Chlorhexidine Gluconate (Hibiclens For Decolonization -) 1 applic TP HS [facility] Last Admin: 12/06/16 21:18 Dose: 1 applic Dextrose (D50w (Vial) -) 50 ml IVPUSH Q1H PRN PRN Reason: for blood glucose <75 Last Admin: 12/04/16 14:00 Dose: 50 ml Epoetin Bruno (Epogen -) 10,000 units IVPUSH ONCE ONE Stop: 12/07/16 06:01 Fosphenytoin Sodium (Cerebyx -) 300 mg IVPB Q12H [facility] Last Admin: 12/07/16 09:27 Dose: 300 mg Heparin Sodium (Porcine) (Heparin -) 5,000 unit SQ TID [facility] Last Admin: 12/07/16 05:52 Dose: 5,000 unit Pantoprazole Sodium (Protonix 40mg Ivpb (Pre-Docked)) 100 mls @ 100 mls/hr IVPB DAILY [facility] Last Admin: 12/07/16 09:51 Dose: 100 mls/hr Propofol (Diprivan -) 100 mls @ 1.638 mls/hr IVPB TITR [facility]IS ALBERTO; 5 MCG/KG/MIN PRN Reason: Protocol Last Admin: 12/06/16 14:04 Dose: Not Given Lorazepam 40 mg/ Dextrose 120 mls @ 6 mls/hr IVPB TITR [facility]IS ALBERTO; 2 MG/HR PRN Reason: Protocol Last Admin: 12/06/16 09:00 Dose: Not Given Norepinephrine Bitartrate 8, (000 mcg/ Sodium Chloride) 508 mls @ 19.05 mls/hr IV TITR [facility]IS ALBERTO; 5 MCG/MIN PRN Reason: Protocol Last Admin: 12/07/16 12:02 Dose: 19.05 mls/hr Insulin Aspart (Novolog Vial Sliding Scale -) 1 vial SQ Q4HPO [facility] PRN Reason: Protocol Last Admin: 12/07/16 11:00 Dose: 2 units Levetiracetam (Keppra Injection -) 2,000 mg IVPB BID [facility] Last Admin: 12/07/16 09:50 Dose: 2,000 mg Methylprednisolone Sodium Succinate (Solu-Medrol -) 40 mg IVPB Q8H-IV [facility] Last Admin: 12/07/16 09:51 Dose: 40 mg Mupirocin (Bactroban Ointment (For Decolonization) -) 1 applic NS BID [facility] Stop: 12/08/16 21:59 Last Admin: 12/07/16 09:50 Dose: 1 applic Phenytoin Sodium (Dilantin Injection -) 100 mg IVPB Q8H [facility] Last Admin: 12/07/16 09:49 Dose: 100 mg Valproate Sodium (Depacon Injection -) 1,000 mg IVPB Q6H-IV [facility] Last Admin: 12/07/16 09:48 Dose: 1,000 mg - Objective Vital Signs: Vital Signs Temperature 99 F 12/07/16 08:00 Pulse Rate 44 L 12/07/16 12:02 Respiratory Rate 14 12/07/16 11:56 Blood Pressure 73/34 12/07/16 12:02 O2 Sat by Pulse Oximetry (%) 100 12/07/16 08:06 Cardiovascular: Yes: Regular Rate and Rhythm Respiratory: Yes: Intubated, Mechanically Ventilated, Rhonchi Gastrointestinal: Yes: Normal Bowel Sounds, Soft Edema: No Neurological: Yes: Unresponsive Labs: CBC, BMP 12/07/16 05:00 12/07/16 05:00 INR, PTT INR 1.22 (0.82-1.09) H 12/04/16 05:05 - ....Imaging Chest X-ray: Report Reviewed (Large right effusion) Problem List - Problems (1) Acute respiratory failure with hypoxia Code(s): J96.01 - ACUTE RESPIRATORY FAILURE WITH HYPOXIA (2) Aspiration pneumonia Code(s): J69.0 - PNEUMONITIS DUE TO INHALATION OF FOOD AND VOMIT Qualifiers: Aspiration pneumonia type: due to vomit Laterality: unspecified laterality (3) Cardiac arrest Code(s): I46.9 - CARDIAC ARREST, CAUSE UNSPECIFIED (4) Hyperkalemia, diminished renal excretion Code(s): E87.5 - HYPERKALEMIA (5) Lactic acidosis Code(s): E87.2 - ACIDOSIS (6) Pleural effusion, right Code(s): J90 - PLEURAL EFFUSION, NOT ELSEWHERE CLASSIFIED (7) Anemia in chronic kidney disease (CKD) Code(s): N18.9 - CHRONIC KIDNEY DISEASE, UNSPECIFIED D63.1 - ANEMIA IN CHRONIC KIDNEY DISEASE (8) End stage kidney disease Code(s): N18.6 - END STAGE RENAL DISEASE (9) Type 2 diabetes mellitus Code(s): E11.9 - TYPE 2 DIABETES MELLITUS WITHOUT COMPLICATIONS Qualifiers: Diabetes mellitus complication status: with kidney complications Chronic kidney disease stage: on chronic dialysis (10) CVA (cerebral vascular accident) Code(s): I63.9 - CEREBRAL INFARCTION, UNSPECIFIED Assessment/Plan Echocardiography revealed normal LV size and function, mild MR, mild to moderate TR with mild degree of pulmonary HTN, RVSP 30-40 mmHg 1. Acute hypoxemic respiratory failure referable to 2. Post asystolic arrest in context of 3. ESRD on HD with hyperkalemia since resolved 4. Septic shock with lactic acidosis, referable to asp pneumonia 5. Probable anoxic encephalopathy, with seizure activity 6. CAD with evidence of demand ischemic injury 7. History of CVA 8. Hyperglycemia 9. Anemia PLAN: 1. Placed back on Levophed gtt and sedation 2. Empiric antibiotic course and steroids as per the primary team 3. Vent management as per the critical care team 4. Neurological f/u appreciated, placed on antiepileptics 5. HD per renal 6. DVT and GI prophylaxis
--- NOTE | 2016-12-07 16:15 | PN ---
Progress Note (short form) - Note Progress Note: History of Present Illness: 76 year old man with history of left craniotomy, subdural hemorrhage, seizure disorder, end stage renal disease on dialysis, diabetes, stroke, left lung collapse, presents to [facility] status post cardiac arrest. Patient was picked up by ambulette and en route to dialysis was noted to be unresponsive. The patient was found to be in cardiac arrest, coded, and brought to ED. In ED was given epinephrine, intubated and sedated, and hypothermic. Patient was previously on hypothermia protocol. Not paralyzed. Was previously on propofol with no improvement in symptoms. Off sedation, intubated, no spontaneous movement seen Dilantin 300 BID Depakote 1 g Q6h Keppra 2 g bid vimpat 300 x1 Corrected dilantin level 30 - Past Medical History [employer] SAL[employer]IST: Yes: CVA, Dementia Pulmonary: Yes: Previously Intubated Renal/: Yes: Renal Failure, Hemodialysis Endocrine: Yes: Diabetes Insipidus - Alcohol/Substance Use Hx Alcohol Use: No - Smoking History Smoking history: Former smoker Have you smoked in the past 12 months: No Aproximately how many cigarettes per day: 0 If you are a former smoker, when did you quit?: 1999 Home Medications - Allergies Allergies/Adverse Reactions: Allergies Allergy/AdvReac Type Severity Reaction Status Date / Time Penicillins Allergy Intermediate Rash Verified 12/03/16 13:33 - Home Medications Home Medications: Ambulatory Orders Unobtainable [Unobtainable] 12/03/16 Review of Systems Unable to obtain ROS, reason: mental status Physical Exam Neurological: Yes: Other (Intubated, off propofol, no obvious gaze preference pupils 2 mm non reactive, corneal + right??, equivocal corneal left, does not withdraw to noxious or verbal stimuli, no spontaneous movement, no obvious seizure activity or myoclonus) Assessment/Plan 76 year old man with history of left craniotomy, subdural hemorrhage, seizure disorder, end stage renal disease on dialysis, diabetes, stroke, left lung collapse, presents to [facility] status post cardiac arrest. Patient was picked up by ambulette and en route to dialysis was noted to be unresponsive. The patient was found to be in cardiac arrest, coded, and brought to ED. In ED was given epinephrine, intubated and sedated, and hypothermic. Off hypothermia protocol. Intubated, off sedation. Exam- +corneal right?, pupils pinpoint NR, no spontaneous movement or withdrawl. No obvious seizure activity. EEG consistent with status epilepticus w burst suppression Dilantin 300 BID Depakote 1 g Q6h Keppra 2 g bid vimpat 300 x1 Corrected dilantin level 30 Check dilantin, depakote level Daily EEG Will follow
[2016-12-07] MEDS ORDERED: Lacosamide 200 MG/20 ML VIAL IVPB ONE (17:00)
[2016-12-07] MEDS ORDERED: PHENYTOIN SODIUM 100 MG/2 ML VIAL IVPB SCH (18:00)
[2016-12-07] MEDS: CHLORHEXIDINE GLUCONATE 4% CLEANSER FOR DECOLONIZATION TP SCH (21:05)
[2016-12-07] MEDS ORDERED: Lacosamide 200 MG/20 ML VIAL IVPB SCH (22:00)
[2016-12-07 22:05] VITALS: TEMP 97.2
[2016-12-08 00:08] VITALS: BP 68/35; PULSE 42
--- NOTE | 2016-12-08 01:40 | HOSP ---
Hospitalist Encounter Assessment: Notified by RN that pt passed. Upon exam, pt without spontaneous respirations, no electrical activity on monitor, no heart sounds auscultated, pupils unresponsive. Pt pronounced at 114AM. Family and forensic manager at bedside. Condolences offered.
--- NOTE | 2016-12-08 07:42 | DS ---
Physical Examination Vital Signs: Vital Signs Temperature 97.2 F L 12/07/16 22:00 Pulse Rate 42 L 12/08/16 00:00 Respiratory Rate 14 12/08/16 00:19 Blood Pressure 68/35 12/08/16 00:00 O2 Sat by Pulse Oximetry (%) 98 12/07/16 20:42 Labs: CBC, BMP 12/07/16 05:00 12/07/16 05:00 Discharge Summary Reason For Visit: CARDIAC ARREST,HYPERKALEMIA,HYPOTHERMIA Hospital Course: This is a 76 year old male with PMHx of left craniotomy, subdural hemorrhage, seizure disorder, ESRD on HD (MWF), DMII, CVA, left lung collapse, who presented to the ED s/p cardiac arrest in [place] on his way to HD Plan: 1) Cardiology: Cardiac arrest, CAD - Elevated trops, likely demand ischemia - Remains on ventilator - Weaned off sedation - No change in mental status - Appreciate cardiology consult 2) Pulmonary: acute hypoxemic respiratory failure - Remains intubated - Continue Solu-medrol 40mg IVPB q8h - Appreciate pulmonary consult 3) ID: Septic shock 2/2 pneumonia - Tmax 100.4 - Pressors restarted today - Continue Ceftriaxone - F/u sputum culture - Blood cultures with NGTD - Appreciate ID consult 4) Neuro: Seizures - Right corneal reflex. Pinpoint pupils b/l, non-reactive - EEG 12/05 with generalized spikes and sharp waves discharges consistent with status epilepticus - F/u EEG today - Continue Valproate 1,000mg IVPB q6h - Continue Fosphenytoin 300mg IVPB q12h - Continue Phenytoin 1,000mg IVPB q8h - Continue Keppra 2,000mg IVPB bid - Appreciate neuro consult 5) : ESRD on HD - HD today - Appreciate nephrology consult The patient was pronounced at 114AM. Family and green marketing analyst at the bedside. Condition: Critical - Instructions Referrals: Kari Salamanca MD [Primary Care Provider] - Disposition: - Home Medications Comprehensive Discharge Medication List: Ambulatory Orders Unobtainable [Unobtainable] 12/03/16 This patient is new to me today: No Emergency Visit: Yes ED Registration Date: 12/03/16 Care time: The patient presented to the Emergency Department on the above date and was hospitalized for further evaluation of their emergent condition. Critical Care patient: No - Discharge Referral Referred to [facility] Med P.C.: No
== END 2016-12-08 03:08 | disposition expired | DRG 870 ==
LOC: JER 13:01 → JERBED 14:52 → JICU 15:40
PROVIDERS: ADMIT Internal Medicine; ATTEND Registered Nurse
PROC: 5A1955Z Respiratory Ventilation, Greater than 96 Consecutive Hours (ICD-10-PCS; principal; 2016-12-03)
PROC: 0BH17EZ Insertion of Endotracheal Airway into Trachea, Via Natural or Artificial Opening (ICD-10-PCS; 2016-12-03)
PROC: 0JHN3XZ Insertion of Tunneled Vascular Access Device into Right Lower Leg Subcutaneous Tissue and Fascia, Percutaneous Approach (ICD-10-PCS; 2016-12-03)
PROC: 5A12012 Performance of Cardiac Output, Single, Manual (ICD-10-PCS; 2016-12-03)
DX: A41.9 Sepsis, unspecified organism (principal); J96.01 Acute respiratory failure with hypoxia; N18.6 End stage renal disease; J69.0 Pneumonitis due to inhalation of food and vomit; R65.21 Severe sepsis with septic shock; J96.02 Acute respiratory failure with hypercapnia; I12.0 Hypertensive chronic kidney disease with stage 5 chronic kidney disease or end stage renal disease; E87.2 Acidosis; G93.1 Anoxic brain damage, not elsewhere classified; J90 Pleural effusion, not elsewhere classified; E87.5 Hyperkalemia; K21.9 Gastro-esophageal reflux disease without esophagitis; E83.52 Hypercalcemia; E11.9 Type 2 diabetes mellitus without complications; Z86.73 Personal history of transient ischemic attack (TIA), and cerebral infarction without residual deficits; Z87.891 Personal history of nicotine dependence; E83.39 Other disorders of phosphorus metabolism; E83.51 Hypocalcemia; G40.909 Epilepsy, unspecified, not intractable, without status epilepticus; I25.10 Atherosclerotic heart disease of native coronary artery without angina pectoris; I46.9 Cardiac arrest, cause unspecified; Z88.0 Allergy status to penicillin; D63.1 Anemia in chronic kidney disease
CPT/HCPCS: 36415; 36600; 71010-TC; 80048; 80053; 80164; 80185; 80186; 82550; 82553; 82803; 83605; 83735; 84100; 84439; 84443; 84481; 84484; 85025; 85027; 85610; 85730; 86704; 86706; 86708; 86803; 86850; 86900; 86901; 87040; 87340; 93005; 93010; 93306-TC; 94002; 94640; 95816; 99285-25; G0480; J1644